=== PATIENT | male | born 1945 | race Caucasian/White ===

== ENCOUNTER 2017-05-10 02:50 | Emergency (ER) | payer MEDICARE, OTHER ==
[~2017-05-10] VITALS: Ht 185.4 cm; Wt 127.5 kg
[~2017-05-10 02:50] MED LIST: ACET325T9 PO; ALBU2.5V5 NEB; ALBU6.7H IH; ALPR0.25 PO; ARIP10TA9 PO; ARIP15TA36 PO; ASPI-424 PO; ATOR40TA59 PO; ATORVASTATIN CA80 MG PO; BUPR100T6 PO; CHOL10003 PO; CLOP75TA57 PO; CLOT12CR2 TP; COLL30OI TP; DIPH25CA3 PO; DIPH50CA PO; DIVA500T17 PO; DIVA500T2 PO; DOCU-109 PO; DULO30CA2 PO; ENOX40DI SQ; FERR-26 PO; GABA-585 PO; HYDR12.58 PO; HYDR25TA9 PO; INSU100I17 SQ; INSU100I27 SQ; LISI40TA PO; MAG30ORA PO; MAG30ORA2 PO; MAGN2400 PO; MELA1TAB2 PO; METH29OI TP; METO25TA4 PO; NITR0.3T SL; NITR0.4T SL; NITR1PAT TD; NITR1PAT9 TD; TRAM50TA PO; TRAZ50TA15 PO; ZOLP5TAB PO
--- NOTE | 2017-05-10 03:47 | PHYS DOC ---
Past History Past Medical History: Anxiety, Bipolar, CHF, Depression, Heart Disease Past Surgical History: Other Alcohol Use: None Drug Use: None Adult General Chief Complaint Chief Complaint: CHEST PAIN HPI HPI Patient is a 72 year old male who presents with complaint of headache after suffering a fall. Patient states that he awoke in the middle the night and attempted to use his bathroom but lost his balance on the way and fell, hitting his right knee and his head. Patient denies loss of consciousness. Patient states that he suffered a cut on his right knee and is having headache. Patient also states that he developed substernal chest pain after the fall. Patient states he took nitroglycerin which relieved his symptoms. Patient has extensive history of coronary artery disease and follows a Dr. Marvin of cardiology. Patient has had cardiac bypass surgery and is noted to have multiple blockages. Patient states that his current condition is not amenable to further surgical intervention and is currently being managed medically. Patient states at this time that he has no pain. Patient is on daily aspirin and is currently not on any blood thinners. Review of Systems Review of Systems Constitutional: Denies fever or chills [] Eyes: Denies change in visual acuity, redness, or eye pain [] HENT: Denies nasal congestion or sore throat [] Respiratory: Denies cough or shortness of breath [] Cardiovascular: Chest pain currently resolved [] GI: Denies abdominal pain, nausea, vomiting, bloody stools or diarrhea [] : Denies dysuria or hematuria [] Musculoskeletal: Denies back pain or joint pain [] Integument: Skin injury on right knee [] Neurologic: Headache, denies focal weakness or sensory changes [] Allergies Allergies Allergies Coded Allergies Type Severity Reaction Last Updated Verified No Known Drug Allergies 12/11/15 No Physical Exam Physical Exam Constitutional: Alert, afebrile, no acute distress. [] HENT: Normocephalic, atraumatic, bilateral external ears normal, oropharynx moist, no oral exudates, nose normal. [] Eyes: PERRLA, EOMI, conjunctiva normal, no discharge. [] Neck: Normal range of motion, no tenderness, supple, no stridor. [] Cardiovascular:Heart rate regular rhythm, no murmur [] Lungs & Thorax: Bilateral breath sounds clear to auscultation [] Abdomen: Bowel sounds normal, soft, no tenderness, no masses, no pulsatile masses. [] Skin: Warm, dry, no erythema, no rash. [] Back: No tenderness, no CVA tenderness. [] Extremities: Superficial avulsion over right patella, no cyanosis, no clubbing, ROM intact, no edema. [] Neurologic: Alert and oriented X 3, normal motor function, normal sensory function, no focal deficits noted. [] Current Patient Data Lab Results Not performed EKG EKG Interpreted by me: Heart rate 53, sinus rhythm, leftward axis, normal intervals , T-wave inversions in the lateral leads and in V2 through V6 present on previous EKG, no acute ST elevations or depressions, no acute changes [] Radiology/Procedures Radiology/[place] [address] IMAGING REPORT Signed PATIENT: BURTON RUSSELL ACCOUNT: [id number] : 1945 LOCATION: ER AGE: 72 SEX: M EXAM STATUS: PRE ER ORD. PHYSICIAN: BRADFORD ELIZABETH MD REASON: fall head injury PROCEDURE: CT HEAD WO CONTRAST CT HEAD INDICATION: Injury from fall tonight, hit posterior portion of head, headache, light sensitivity. . COMPARISON: None Available. TECHNIQUE: 5 mm contiguous axial images were obtained from the skull base to the vertex. Exposure: One or more of the following individualized dose reduction techniques were utilized for this examination: 1. Automated exposure control 2. Adjustment of the mA and/or kV according to patient size 3. Use of iterative reconstruction technique FINDINGS: Mild bilateral periventricular white matter hypodensities likely chronic small vessel ischemic disease. Small left basal ganglia old lacunar infarct No evidence of acute intracranial hemorrhage. No extra-axial fluid collections. No mass effect or midline shift. Ventricular size is appropriate. Basal cisterns are patent. No fractures identified.Hough-white differentiation is preserved.Globes and orbits are within normal limits. Complete opacification of the bilateral maxillary sinus likely sinus disease. Mastoid air cells are clear. IMPRESSION: 1. No acute intracranial findings. 2. Bilateral maxillary sinus disease. Electronically signed by: Joe Goins MD (05/10/2017 3:50 AM) DICTATED AND SIGNED BY: JOE GOINS MD DATE: 05/10/17 0347 CC: BRADFORD ELIZABETH MD; PCP,UNKNOWN ~ [] Course & Med Decision Making Course & Med Decision Making Pertinent Labs and Imaging studies reviewed. (See chart for details) Patient's EKG is stable and patient's head CT shows no evidence of acute bleeding. The patient's angina is a chronic recurrent condition and is currently resolved. I spoke with patient's referral rn, Dr. Marvin, and he agreed that no further workup is necessary at this time. He agreed to follow-up with patient in the next 5 days in his office. The patient is ambulatory in the emergency department with a nonfocal during gait. Advised patient to call Dr. Marvin's office on the next business day to schedule an appointment. Advised return emergency department for any worsening symptoms. Patient voiced understanding and in agreement with treatment plan. Dragon Disclaimer Dragon Disclaimer This chart was dictated in whole or in part using Voice Recognition software in a busy, high-work load, and often noisy Emergency Department environment. It may contain unintended and wholly unrecognized errors or omissions. Departure Departure: Impression: Primary Impression: Stable angina Additional Impressions: Closed head injury Abrasion of right knee Disposition: HOME, SELF-CARE Condition: IMPROVED Referrals: PCP,UNKNOWN (PCP) Patient Instructions: Abrasion, Kisg-me-Vuhp, Angina, Head Injury, Adult Additional Instructions: Follow-up with Dr. Marvin in the next 3-5 days. Return to the emergency department for any worsening symptoms. Problem Qualifiers Additional Impressions: Closed head injury Encounter type: initial encounter Qualified Codes: S09.90XA - Unspecified injury of head, initial encounter Abrasion of right knee Encounter type: initial encounter Qualified Codes: S80.211A - Abrasion, right knee, initial encounter BRADFORD ELIZABETH MD May 10, 2017 03:47
--- NOTE | 2017-05-10 03:54 | RAD ---
CT HEAD INDICATION: Injury from fall tonight, hit posterior portion of head, headache, light sensitivity. . COMPARISON: None Available. TECHNIQUE: 5 mm contiguous axial images were obtained from the skull base to the vertex. Exposure: One or more of the following individualized dose reduction techniques were utilized for this examination: 1. Automated exposure control 2. Adjustment of the mA and/or kV according to patient size 3. Use of iterative reconstruction technique FINDINGS: Mild bilateral periventricular white matter hypodensities likely chronic small vessel ischemic disease. Small left basal ganglia old lacunar infarct No evidence of acute intracranial hemorrhage. No extra-axial fluid collections. No mass effect or midline shift. Ventricular size is appropriate. Basal cisterns are patent. No fractures identified.Hough-white differentiation is preserved.Globes and orbits are within normal limits. Complete opacification of the bilateral maxillary sinus likely sinus disease. Mastoid air cells are clear. IMPRESSION: 1. No acute intracranial findings. 2. Bilateral maxillary sinus disease. Electronically signed by: Joe Goins MD (05/10/2017 3:50 AM)
[2017-05-10 04:17] VITALS: BP 141/77
--- NOTE | 2017-05-10 07:04 | EKG ---
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1945 Requested By: BRADFORD ELIZABETH Order Number: [id number] Reading MD: Nathan Helms Measurements Intervals [place] Rate: 53 P: -64 CT: 160 QRS: -12 QRSD: 106 T: 97 QT: 450 QTc: 425 Interpretive Statements SINUS RHYTHM LEFTWARD AXIS QRS(T) CONTOUR ABNORMALITY CANNOT RULE OUT ANTEROSEPTAL MYOCARDIAL DAMAGE T ABNORMALITY IN ANTEROLATERAL LEADS RI6.01 Unconfirmed report Compared to ECG 06/28/2016 17:06:17 Left-axis deviation now present T-wave abnormality now present Sinus bradycardia no longer present Possible ischemia no longer present Electronically Signed On 05-12-2017 10:50:49 CDT by Nathan Helms
== END 2017-05-10 04:30 | disposition home or self-care (01) ==
LOC: ER 02:50
DX: S09.90XA Unspecified injury of head, initial encounter (principal); S80.211A Abrasion, right knee, initial encounter; F41.9 Anxiety disorder, unspecified; I20.8 Other forms of angina pectoris; I50.9 Heart failure, unspecified; F31.9 Bipolar disorder, unspecified; W19.XXXA Unspecified fall, initial encounter; Y93.89 Activity, other specified; Y99.8 Other external cause status; Y92.002 Bathroom of unspecified non-institutional (private) residence as the place of occurrence of the external cause
CPT/HCPCS: 70450; 93005; 99284-25

== ENCOUNTER 2018-06-19 13:03 | Inpatient (IN) | payer MEDICARE, OTHER ==
[~2018-06-19] VITALS: Ht 185.4 cm; Wt 132.5 kg
[~2018-06-19 13:03] MED LIST changes: -FERR-26 PO; +FERR325T14 PO; +TRAZ-85 PO; -TRAZ50TA15 PO
[2018-06-19] MEDS ORDERED: MAG HYDROX/AL HYDROX/SIMETH 30 ML ORAL.SUSP PO PRN (15:00)
[2018-06-19] MEDS ORDERED: MAGNESIUM HYDROXIDE 2,400 MG/30 ML ORAL.SUSP. PO PRN (15:00)
[2018-06-19] MEDS ORDERED: METHYL SALICYLATE/MENTHOL TOPICAL OINTMENT 29GM TUBE. TP PRN (15:00)
[2018-06-19] MEDS ORDERED: ACETAMINOPHEN 325 MG TABLET PO PRN (15:00)
[2018-06-19 15:54] LABS: BASO % 1 % (0-3); EOS % 2 % (0-3); HEMATOCRIT 24.8 % (39.0-53.0); LYMPH # 1.2 x10^3/uL (1.0-4.8); LYMPH % 51 % (24-48); MEAN CORPUSCULAR HEMOGLOBIN 31 pg (25-35); MEAN CORPUSCULAR HGB CONC 32 g/dL (31-37); MEAN CORPUSCULAR VOLUME 95 fL (79-100); MONO # 0.3 x10^3/uL (0.0-1.1); MONO % 14 % (0-9); NEUT # 0.8 x10^3uL (1.8-7.7); NEUT % 33 % (31-73); PLATELET COUNT 234 x10^3/uL (140-400); RED BLOOD COUNT 2.61 x10^6/uL (4.30-5.70); RED CELL DISTRIBUTION WIDTH 16.7 % (11.5-14.5); WHITE BLOOD COUNT 2.4 x10^3/uL (4.0-11.0)
[2018-06-19 16:05] VITALS: BP 116/73
[2018-06-19 16:07] LABS: ALBUMIN 2.4 g/dL (3.4-5.0); ALBUMIN/GLOBULIN RATIO 0.6 (1.0-1.7); CALCIUM 8.8 mg/dL (8.5-10.1); CREATININE 1.1 mg/dL (0.7-1.3); GFR 65.4; POTASSIUM 4.2 mmol/L (3.5-5.1); TOTAL BILIRUBIN 0.5 mg/dL (0.2-1.0); TOTAL PROTEIN 6.7 g/dL (6.4-8.2)
[2018-06-19 16:36] LABS: % BANDS 1 % (0-9); % BASOS 0 % (0-3); % EOS 2 % (0-5); % LYMPHS 55 % (24-48); % METAS 1 % (0-0); % MONOS 8 % (0-10); % SEGS 33 % (35-66); ANISOCYTOSIS SLIGHT; PLT ESTIMATE ADEQUATE (ADEQUATE)
[2018-06-19] MEDS ORDERED: INSU100I11 SQ (17:32)
[2018-06-19] MEDS ORDERED: LACT1CAP21 PO (17:32)
[2018-06-19] MEDS ORDERED: RANO500T2 PO (17:32)
[2018-06-19] MEDS ORDERED: CLOP75TA PO (17:32)
[2018-06-19] MEDS ORDERED: ACET500T68 PO (17:32)
[2018-06-19] MEDS ORDERED: PANT40TA3 PO (17:32)
[2018-06-19] MEDS ORDERED: ASPI325T8 PO (17:32)
[2018-06-19] MEDS ORDERED: IPRA3AMP29 NEB (17:32)
[2018-06-19] MEDS ORDERED: INSU100I13 SQ (17:32)
[2018-06-19] MEDS ORDERED: TAMS0.4C2 PO (17:32)
[2018-06-19] MEDS ORDERED: ALPR0.5T6 PO (17:32)
[2018-06-19] MEDS ORDERED: DILT30TA26 PO (17:32)
[2018-06-19] MEDS ORDERED: ATOR40TA59 PO (17:32)
[2018-06-19] MEDS ORDERED: ONDA4TAB12 PO (17:32)
[2018-06-19] MEDS ORDERED: HYDR-2758 PO (17:32)
[2018-06-19] MEDS ORDERED: BUDE0.5A11 NEB (17:32)
[2018-06-19] MEDS ORDERED: CARV3.122 PO (17:32)
[2018-06-19] MEDS ORDERED: ALPRAZolam 0.5 MG TABLET PO PRN (18:00)
[2018-06-19] MEDS ORDERED: ONDANSETRON ODT 4 MG TAB.RAPDIS PO PRN (18:00)
[2018-06-19] MEDS ORDERED: ACETAMINOPHEN 500 MG TABLET PO PRN (18:15)
[2018-06-19] MEDS ORDERED: HYDROcodone/APAP 5/325MG 1 TAB TABLET PO PRN (18:15)
[2018-06-19] MEDS: dilTIAZem HCL 30 MG TABLET PO SCH (20:09)
[2018-06-19] MEDS: ATORVASTATIN CALCIUM 20 MG TABLET PO SCH (20:09)
[2018-06-19] MEDS: LACTOBACILLUS RHAMNOSUS GG 1 CAPSULE. PO SCH (20:09)
[2018-06-19] MEDS: DIVALPROEX ER 500 MG TAB.ER.24H PO SCH (20:09)
[2018-06-19] MEDS: buPROPion 100 MG TABLET PO SCH (20:10)
[2018-06-19] MEDS: RANOLAZINE 500 MG TAB.ER.12H PO SCH (20:10)
[2018-06-19] MEDS: INSULIN GLARGINE 300 UNITS/3 ML INSULN.PEN. SQ SCH (20:11)
--- NOTE | 2018-06-19 20:41 | PDOC ---
Exam Note: Warner Note: Please also refer to the separate dictated note~for this date of service dictated separately.~Patient seen individually. Discussed the patient with Nursing staff reviewed the chart.~Reviewed interim history and current functioning. Reviewed vital signs,~Labs/ Radiology~and current medications noted below. Continue current treatment with the changes noted in the dictated addendum note Assessment: Vital Signs: Vital Signs Date Time Temp Pulse Resp B/P (MAP) Pulse Ox O2 Delivery O2 Flow Rate FiO2 06/19/18 20:10 71 116/73 06/19/18 16:05 97.6 16 97 2.0 Labs: Laboratory Tests Test 06/19/18 15:48 06/19/18 16:37 06/19/18 19:19 White Blood Count 2.4 x10^3/uL (4.0-11.0) L Red Blood Count 2.61 x10^6/uL (4.30-5.70) L Hemoglobin 8.0 g/dL (13.0-17.5) L Hematocrit 24.8 % (39.0-53.0) L Mean Corpuscular Volume 95 fL (79-100) Mean Corpuscular Hemoglobin 31 pg (25-35) Mean Corpuscular Hemoglobin Concent 32 g/dL (31-37) Red Cell Distribution Width 16.7 % (11.5-14.5) H Platelet Count 234 x10^3/uL (140-400) Neutrophils (%) (Auto) 33 % (31-73) Lymphocytes (%) (Auto) 51 % (24-48) H Monocytes (%) (Auto) 14 % (0-9) H Eosinophils (%) (Auto) 2 % (0-3) Basophils (%) (Auto) 1 % (0-3) Neutrophils # (Auto) 0.8 x10^3uL (1.8-7.7) L Lymphocytes # (Auto) 1.2 x10^3/uL (1.0-4.8) Monocytes # (Auto) 0.3 x10^3/uL (0.0-1.1) Eosinophils # (Auto) 0.0 x10^3/uL (0.0-0.7) Basophils # (Auto) 0.0 x10^3/uL (0.0-0.2) Segmented Neutrophils % 33 % (35-66) L Band Neutrophils % 1 % (0-9) Lymphocytes % 55 % (24-48) H Monocytes % 8 % (0-10) Eosinophils % 2 % (0-5) Basophils % 0 % (0-3) Metamyelocytes % 1 % (0-0) H Platelet Estimate Adequate (ADEQUATE) Anisocytosis Slight Crenated Cell Present Sodium Level 137 mmol/L (136-145) Potassium Level 4.2 mmol/L (3.5-5.1) Chloride Level 102 mmol/L (98-107) Carbon Dioxide Level 29 mmol/L (21-32) Anion Gap 6 (6-14) Blood Urea Nitrogen 19 mg/dL (8-26) Creatinine 1.1 mg/dL (0.7-1.3) Estimated GFR (Cockcroft-Gault) 65.4 BUN/Creatinine Ratio 17 (6-20) Glucose Level 122 mg/dL (70-99) H Calcium Level 8.8 mg/dL (8.5-10.1) Magnesium Level 2.0 mg/dL (1.8-2.4) Total Bilirubin 0.5 mg/dL (0.2-1.0) Aspartate Amino Transferase (AST) 13 U/L (15-37) L Alanine Aminotransferase (ALT) 12 U/L (16-63) L Alkaline Phosphatase 53 U/L (46-116) Total Protein 6.7 g/dL (6.4-8.2) Albumin 2.4 g/dL (3.4-5.0) L Albumin/Globulin Ratio 0.6 (1.0-1.7) L Glucose (Fingerstick) 136 mg/dL (70-99) H 180 mg/dL (70-99) H Current Medications: Meds: Current Medications Acetaminophen (Tylenol) 650 mg PRN Q6HRS PRN PO PAIN / TEMP; Start 06/19/18 at 15:00; Stop 06/19/18 at 17:59; Status DC Multi-Ingredient Ointment (Analgesic [place]) 1 georgina PRN QID PRN TP MUSCLE PAIN; Start 06/19/18 at 15:00 Al Hydroxide/Mg Hydroxide (Mylanta Plus Xs) 15 ml PRN AFTMEALHC PRN PO DYSPEPSIA; Start 06/19/18 at 15:00 Magnesium Hydroxide (Milk Of Magnesia) 2,400 mg PRN QHS PRN PO CONSTIPATION; Start 06/19/18 at 15:00 Aspirin (Michelle Aspirin) 325 mg DAILY PO ; Start 06/20/18 at 09:00 Bupropion HCl (Wellbutrin) 100 mg BID PO Last administered on 06/19/18at 20:10; Start 06/19/18 at 21:00 Vitamin D (Vitamin D3) 3,000 unit DAILY PO ; Start 06/20/18 at 09:00 Clopidogrel Bisulfate (Plavix) 75 mg DAILY PO ; Start 06/20/18 at 09:00 Diltiazem HCl (Cardizem) 30 mg TID PO Last administered on 06/19/18at 20:09; Start 06/19/18 at 21:00 Ferrous Sulfate (Feosol) 325 mg DAILY PO ; Start 06/20/18 at 09:00 Insulin Glargine (Lantus) 25 units QHS SQ Last administered on 06/19/18at 20:11 ; Start 06/19/18 at 21:00 Insulin Human Lispro (HumaLOG) 15 units TIDAC SQ ; Start 06/20/18 at 07:30 Albuterol/ Ipratropium (Duoneb) 3 ml RTQID NEB ; Start 06/19/18 at 20:00 Ondansetron HCl (Zofran Odt) 4 mg PRN Q8HRS PRN PO NAUSEA/VOMITING; Start 06/19 at 18:00 Ranolazine (Ranexa) 500 mg BID PO Last administered on 06/19/18at 20:10; Start 06/19/18 at 21:00 Tamsulosin HCl (Flomax) 0.4 mg DAILY PO ; Start 06/20/18 at 09:00 Acetaminophen (Tylenol) 500 mg PRN Q8HRS PRN PO PAIN / TEMP; Start 06/19/18 at 18:15 Alprazolam (Xanax) 0.5 mg PRN Q8HRS PRN PO ANXIETY / AGITATION; Start 06/19/18 at 18:00 Atorvastatin Calcium (Lipitor) 40 mg QHS PO Last administered on 06/19/18at 20: 09; Start 06/19/18 at 21:00 Budesonide (Pulmicort) 0.5 mg RTBID NEB ; Start 06/19/18 at 20:00 Carvedilol (Coreg) 3.125 mg BIDWMEALS PO ; Start 06/20/18 at 08:00 Divalproex Sodium (Depakote Er) 1,000 mg QHS PO Last administered on 06/19/18at 20:09; Start 06/19/18 at 21:00 Duloxetine HCl (Cymbalta) 30 mg DAILY PO ; Start 06/20/18 at 09:00 Acetaminophen/ Hydrocodone Bitart (Lortab 5/325) 1 tab PRN Q4HRS PRN PO PAIN; Start 06/19/18 at 18:15 Lactobacillus Rhamnosus (Culturelle) 1 cap BID PO Last administered on at 20:09; Start 06/19/18 at 21:00 Pantoprazole Sodium (Protonix) 40 mg DAILYAC PO ; Start 06/20/18 at 07:30 Active Scripts Active Reported Cardizem Tablet (Diltiazem Hcl) 30 Mg Tablet 30 Mg PO TID Tamsulosin Hcl 0.4 Mg Cap.er.24h 0.4 Mg PO DAILY Ranexa (Ranolazine) 500 Mg Tab.er.12h 500 Mg PO BID Protonix (Pantoprazole Sodium) 40 Mg Tablet.dr 40 Mg PO DAILYAC Ondansetron Odt (Ondansetron) 4 Mg Tab.rapdis 4 Mg PO PRN Q8HRS PRN Culturelle (Lactobacillus Rhamnosus Gg) 1 Each Capsule 1 Each PO BID Duoneb 0.5-3(2.5) Mg/3 Ml (Albuterol/Ipratropium) 3 Ml Ampul.neb 3 Ml NEB RTQID Humalog (Insulin Lispro) 100 Unit/1 Ml Insuln.pen 15 Unit SQ TIDAC Lantus Solostar (Insulin Glargine,Hum.rec.anlog) 100 Unit/1 Ml Insuln.pen 25 Unit SQ QHS Hydrocodone-Apap 5-325 (Hydrocodone Bit/Acetaminophen) 1 Each Tablet 1 Tab PO PRN Q4HRS PRN Clopidogrel (Clopidogrel Bisulfate) 75 Mg Tablet 75 Mg PO DAILY Carvedilol 3.125 Mg Tablet 3.125 Mg PO BIDWMEALS Budesonide 0.5 Mg/2 Ml Ampul.neb 0.5 Mg NEB RTBID Atorvastatin Calcium 40 Mg Tablet 40 Mg PO QHS Aspirin 325 Mg Tablet 325 Mg PO DAILY Alprazolam 0.5 Mg Tablet 0.5 Mg PO PRN Q8HRS PRN Acetaminophen 500 Mg Tablet 500 Mg PO PRN Q8HRS PRN Ferrous Sulfate 325 Mg Tablet 325 Mg PO DAILY Do not give within 2 hours of antacids or calcium products. Give with food. Divalproex Sodium Er (Divalproex Sodium) 500 Mg Tab.er.24h 1,000 Mg PO HS Give with food. Do NOT crush or chew. Vitamin D3 (Cholecalciferol (Vitamin D3)) 1,000 Unit Tablet 3,000 Unit PO DAILY Wellbutrin (Bupropion Hcl) 100 Mg Tablet 100 Mg PO BID Cymbalta (Duloxetine Hcl) 30 Mg Capsule.dr 30 Mg PO DAILY I have reviewed the current psychotropics carefully including drug interactions. Risk benefit ratio favors no change other than as noted in my dictated progress note. Diagnosis: Problems: (1) Depression (2) Difficulty controlling anger (3) Bipolar 1 disorder GRANT HYLTON MD Jun 19, 2018 20:41
[2018-06-19] MEDS: IPRATRPIUM/ALBUTEROL 0.5/2.5MG 3 ML NEBU. NEB SCH (20:52)
[2018-06-19] MEDS: BUDESONIDE 0.5 MG/2 ML NEBU NEB SCH (20:53)
[2018-06-20 03:09] LABS: THYROXINE 5.9 ug/dL (4.5-12.0)
[2018-06-20 04:12] LABS: HEMOGLOBIN A1C 6.4 % (4.8-5.6)
[2018-06-20] MEDS: BUDESONIDE 0.5 MG/2 ML NEBU NEB SCH ×3 (05:43→19:56)
[2018-06-20] MEDS: IPRATRPIUM/ALBUTEROL 0.5/2.5MG 3 ML NEBU. NEB SCH ×4 (05:43→19:56)
[2018-06-20 06:07] VITALS: BP 120/77
[2018-06-20] MEDS: buPROPion 100 MG TABLET PO SCH ×2 (07:57→19:28)
[2018-06-20] MEDS: dilTIAZem HCL 30 MG TABLET PO SCH ×3 (07:57→19:28)
[2018-06-20] MEDS: RANOLAZINE 500 MG TAB.ER.12H PO SCH ×2 (07:58→19:29)
[2018-06-20] MEDS: LACTOBACILLUS RHAMNOSUS GG 1 CAPSULE. PO SCH ×2 (07:58→19:28)
[2018-06-20] MEDS: CARVEDILOL 3.125 MG TABLET PO SCH ×2 (08:02→16:58)
[2018-06-20] MEDS: FERROUS SULFATE 325 MG TABLET. PO SCH (08:02)
[2018-06-20] MEDS: TAMSULOSIN 0.4 MG CAP.ER.24H. PO SCH (08:02)
[2018-06-20] MEDS: ASPIRIN 325 MG TABLET PO SCH (08:02)
[2018-06-20] MEDS: PANTOPRAZOLE 40 MG TABLET. PO SCH (08:02)
[2018-06-20] MEDS: DULoxetine HCL 30 MG CAPSULE.DR PO SCH (08:02)
[2018-06-20] MEDS: CHOLECALCIFEROL (VITAMIN D3) 1,000 UNIT TABLET PO SCH (08:03)
[2018-06-20] MEDS: CLOPIDOGREL BISULFATE 75 MG TABLET PO SCH (08:03)
[2018-06-20] MEDS: INSULIN LISPRO 300 UNITS/3 ML INSULN.PEN. SQ SCH ×3 (08:09→16:30)
[2018-06-20 08:28] LABS: VAL ACID 43 mcg/mL (50-100)
--- NOTE | 2018-06-20 10:42 | PDOC2 ---
CONSULT Date of Admission DATE: 06/20/18 TIME: 10:04 Reason for Consult: Medical Management Referring Physician: Dr Gutierrez Source: Caregiver, Chart review, Patient History of Present Illness 73/M admitted [facility] from [facility] for reports of increased agitation, paranoia, worsening anxiety, and at times some combative behaviors. Has prior admission to [facility] in June 2016 with extensive psychiatric history. He apparently suffered a fall injury with left hip fracture 05/22/18 and is s/p ORIF. On 06/16/18 he suffered a NSTEMI and is currently on ciprofloxacin for UTI. Among his medical problems he is diabetic, his FSBS have been 136-180 since arriving here and his vitals have remained stable he uses 2L O2 NC while sleeping. He is not very mobile currently but does assist with transfers and staff reports he has been calm and pleasant since his arrival. I find him asleep this morning, and while cooperative with exam he makes a laughing noise to answer each of my questions. He has a DNR. Past Medical History atrial fibrillation, coronary artery disease, hypertension, UT, peripheral vascular disease, asthma, obstructive sleep apnea (uses 2L O2 NC while asleep), transient ischemic attack, peptic ulcer disease, anemia, bipolar disorder, depression, osteoarthritis, hearing loss, urinary retention with frequent UTIs ( izquierdo), Past Surgical History ORIF left hip, CABG, cataracts, coronary stents Family History hypertension Smoke: No ALCOHOL: none Drugs: None Lives: Skilled Nursing Current Medications Current Medications Acetaminophen (Tylenol) 650 mg PRN Q6HRS PRN PO PAIN / TEMP; Start 06/19/18 at 15:00; Stop 06/19/18 at 17:59; Status DC Multi-Ingredient Ointment (Analgesic [place]) 1 georgina PRN QID PRN TP MUSCLE PAIN; Start 06/19/18 at 15:00 Al Hydroxide/Mg Hydroxide (Mylanta Plus Xs) 15 ml PRN AFTMEALHC PRN PO DYSPEPSIA; Start 06/19/18 at 15:00 Magnesium Hydroxide (Milk Of Magnesia) 2,400 mg PRN QHS PRN PO CONSTIPATION; Start 06/19/18 at 15:00 Aspirin (Michelle Aspirin) 325 mg DAILY PO Last administered on 06/20/18at 08:02; Start 06/20/18 at 09:00 Bupropion HCl (Wellbutrin) 100 mg BID PO Last administered on 06/20/18 07:57; Start 06/19/18 at 21:00 Vitamin D (Vitamin D3) 3,000 unit DAILY PO Last administered on 06/20/18 08:03 ; Start 06/20/18 at 09:00 Clopidogrel Bisulfate (Plavix) 75 mg DAILY PO Last administered on 06/20/18 08 :03; Start 06/20/18 at 09:00 Diltiazem HCl (Cardizem) 30 mg TID PO Last administered on 06/20/18 07:57; Start 06/19/18 at 21:00 Ferrous Sulfate (Feosol) 325 mg DAILY PO Last administered on 06/20/18 08:02; Start 06/20/18 at 09:00 Insulin Glargine (Lantus) 25 units QHS SQ Last administered on 06/19/18 20:11 ; Start 06/19/18 at 21:00 Insulin Human Lispro (HumaLOG) 15 units TIDAC SQ Last administered on 08:09; Start 06/20/18 at 07:30 Albuterol/ Ipratropium (Duoneb) 3 ml RTQID NEB Last administered on 06/20/18 05:43; Start 06/19/18 at 20:00 Ondansetron HCl (Zofran Odt) 4 mg PRN Q8HRS PRN PO NAUSEA/VOMITING; Start 06/19 at 18:00 Ranolazine (Ranexa) 500 mg BID PO Last administered on 06/20/18at 07:58; Start 06/19/18 at 21:00 Tamsulosin HCl (Flomax) 0.4 mg DAILY PO Last administered on 06/20/18 08:02; Start 06/20/18 at 09:00 Acetaminophen (Tylenol) 500 mg PRN Q8HRS PRN PO PAIN / TEMP; Start 06/19/18 at 18:15 Alprazolam (Xanax) 0.5 mg PRN Q8HRS PRN PO ANXIETY / AGITATION; Start 06/19/18 at 18:00 Atorvastatin Calcium (Lipitor) 40 mg QHS PO Last administered on 06/19/18at 20: 09; Start 06/19/18 at 21:00 Budesonide (Pulmicort) 0.5 mg RTBID NEB Last administered on 06/20/18at 05:43; Start 06/19/18 at 20:00 Carvedilol (Coreg) 3.125 mg BIDWMEALS PO Last administered on 06/20/18at 08:02; Start 06/20/18 at 08:00 Divalproex Sodium (Depakote Er) 1,000 mg QHS PO Last administered on 06/19/18at 20:09; Start 06/19/18 at 21:00 Duloxetine HCl (Cymbalta) 30 mg DAILY PO Last administered on 06/20/18at 08:02; Start 06/20/18 at 09:00 Acetaminophen/ Hydrocodone Bitart (Lortab 5/325) 1 tab PRN Q4HRS PRN PO PAIN; Start 06/19/18 at 18:15 Lactobacillus Rhamnosus (Culturelle) 1 cap BID PO Last administered on at 07:58; Start 06/19/18 at 21:00 Pantoprazole Sodium (Protonix) 40 mg DAILYAC PO Last administered on 06/20/18at 08:02; Start 06/20/18 at 07:30 Active Scripts Active Reported Cardizem Tablet (Diltiazem Hcl) 30 Mg Tablet 30 Mg PO TID Tamsulosin Hcl 0.4 Mg Cap.er.24h 0.4 Mg PO DAILY Ranexa (Ranolazine) 500 Mg Tab.er.12h 500 Mg PO BID Protonix (Pantoprazole Sodium) 40 Mg Tablet.dr 40 Mg PO DAILYAC Ondansetron Odt (Ondansetron) 4 Mg Tab.rapdis 4 Mg PO PRN Q8HRS PRN Culturelle (Lactobacillus Rhamnosus Gg) 1 Each Capsule 1 Each PO BID Duoneb 0.5-3(2.5) Mg/3 Ml (Albuterol/Ipratropium) 3 Ml Ampul.neb 3 Ml NEB RTQID Humalog (Insulin Lispro) 100 Unit/1 Ml Insuln.pen 15 Unit SQ TIDAC Lantus Solostar (Insulin Glargine,Hum.rec.anlog) 100 Unit/1 Ml Insuln.pen 25 Unit SQ QHS Hydrocodone-Apap 5-325 (Hydrocodone Bit/Acetaminophen) 1 Each Tablet 1 Tab PO PRN Q4HRS PRN Clopidogrel (Clopidogrel Bisulfate) 75 Mg Tablet 75 Mg PO DAILY Carvedilol 3.125 Mg Tablet 3.125 Mg PO BIDWMEALS Budesonide 0.5 Mg/2 Ml Ampul.neb 0.5 Mg NEB RTBID Atorvastatin Calcium 40 Mg Tablet 40 Mg PO QHS Aspirin 325 Mg Tablet 325 Mg PO DAILY Alprazolam 0.5 Mg Tablet 0.5 Mg PO PRN Q8HRS PRN Acetaminophen 500 Mg Tablet 500 Mg PO PRN Q8HRS PRN Ferrous Sulfate 325 Mg Tablet 325 Mg PO DAILY Do not give within 2 hours of antacids or calcium products. Give with food. Divalproex Sodium Er (Divalproex Sodium) 500 Mg Tab.er.24h 1,000 Mg PO HS Give with food. Do NOT crush or chew. Vitamin D3 (Cholecalciferol (Vitamin D3)) 1,000 Unit Tablet 3,000 Unit PO DAILY Wellbutrin (Bupropion Hcl) 100 Mg Tablet 100 Mg PO BID Cymbalta (Duloxetine Hcl) 30 Mg Capsule.dr 30 Mg PO DAILY Allergies: Coded Allergies: No Known Drug Allergies (Unverified , 12/11/15) Review of System Patient would not cooperate, would not answer questions accurate ROS unobtainable General: Cooperative (with exam, would not answer questions), No acute distress , Other (sleeping, rouses easily to verbal stimuli) HEENT: Atraumatic, Mucous membr. moist/pink, Other (nasal cannula) Lungs: Clear to auscultation, Normal air movement Heart: Normal S1, Normal S2, Other (2/6 BRIAN LSB) Abdomen: Normal bowel sounds, Soft, No tenderness Extremities: No clubbing, No cyanosis, Normal pulses, Other (generalized mild nonpitting edema globally, 2+ pitting LE edema left leg, surgical wound with sterile dressing) Neuro: Other (sensation appears intact, OLEA, no lateralizing deficits with limited exam) VITALS Vital Signs Date Time Temp Pulse Resp B/P (MAP) Pulse Ox O2 Delivery O2 Flow Rate FiO2 06/20/18 08:02 76 120/77 06/20/18 06:07 97.7 16 97 2.0 06/20/18 05:46 Room Air Labs Laboratory Tests Test 06/19/18 15:48 06/19/18 16:37 06/19/18 19:19 06/20/18 07:25 White Blood Count 2.4 x10^3/uL (4.0-11.0) Red Blood Count 2.61 x10^6/uL (4.30-5.70) Hemoglobin 8.0 g/dL (13.0-17.5) Hematocrit 24.8 % (39.0-53.0) Mean Corpuscular Volume 95 fL (79-100) Mean Corpuscular Hemoglobin 31 pg (25-35) Mean Corpuscular Hemoglobin Concent 32 g/dL (31-37) Red Cell Distribution Width 16.7 % (11.5-14.5) Platelet Count 234 x10^3/uL (140-400) Neutrophils (%) (Auto) 33 % (31-73) Lymphocytes (%) (Auto) 51 % (24-48) Monocytes (%) (Auto) 14 % (0-9) Eosinophils (%) (Auto) 2 % (0-3) Basophils (%) (Auto) 1 % (0-3) Neutrophils # (Auto) 0.8 x10^3uL (1.8-7.7) Lymphocytes # (Auto) 1.2 x10^3/uL (1.0-4.8) Monocytes # (Auto) 0.3 x10^3/uL (0.0-1.1) Eosinophils # (Auto) 0.0 x10^3/uL (0.0-0.7) Basophils # (Auto) 0.0 x10^3/uL (0.0-0.2) Segmented Neutrophils % 33 % (35-66) Band Neutrophils % 1 % (0-9) Lymphocytes % 55 % (24-48) Monocytes % 8 % (0-10) Eosinophils % 2 % (0-5) Basophils % 0 % (0-3) Metamyelocytes % 1 % (0-0) Platelet Estimate Adequate (ADEQUATE) Anisocytosis Slight Crenated Cell Present Sodium Level 137 mmol/L (136-145) Potassium Level 4.2 mmol/L (3.5-5.1) Chloride Level 102 mmol/L (98-107) Carbon Dioxide Level 29 mmol/L (21-32) Anion Gap 6 (6-14) Blood Urea Nitrogen 19 mg/dL (8-26) Creatinine 1.1 mg/dL (0.7-1.3) Estimated GFR (Cockcroft-Gault) 65.4 BUN/Creatinine Ratio 17 (6-20) Glucose Level 122 mg/dL (70-99) Hemoglobin A1c 6.4 % (4.8-5.6) Calcium Level 8.8 mg/dL (8.5-10.1) Magnesium Level 2.0 mg/dL (1.8-2.4) Total Bilirubin 0.5 mg/dL (0.2-1.0) Aspartate Amino Transf (AST/SGOT) 13 U/L (15-37) Alanine Aminotransferase (ALT/SGPT) 12 U/L (16-63) Alkaline Phosphatase 53 U/L (46-116) Total Protein 6.7 g/dL (6.4-8.2) Albumin 2.4 g/dL (3.4-5.0) Albumin/Globulin Ratio 0.6 (1.0-1.7) Thyroxine (T4) 5.9 ug/dL (4.5-12.0) Total Triiodothyronine 74 ng/dL (71-180) Glucose (Fingerstick) 136 mg/dL (70-99) 180 mg/dL (70-99) 141 mg/dL (70-99) Test 06/20/18 07:43 Valproic Acid (Depakene) Level 43 mcg/mL (50-100) Valproic Acid Last Dose Date 06/19/2018 Valproic Acid Last Dose Time 2100 Assessment/Plan 73/M with multiple chronic medical problems, recent left hip fracture/repair currently on cipro for UTI admitted to [facility] for mental status and behavior changes. Chronic conditions appear to be stable on current medications. He is DVT risk post-op and with decreased activity, however he is on plavix and will add VINITA hose to left leg and PT/OT as tolerated. Follow up on urine culture result from [place], continue to monitor blood glucose and CBC. Thank you, Dr Gutierrez, for the opportunity to participate in the care of your patient. DEON TEAGUE DO Jun 20, 2018 10:41 am
[2018-06-20 11:15] LABS: THYROID STIM HORMONE (TSH) 2.618 uIU/mL (0.358-3.740)
[2018-06-20 12:37] LABS: BACTERIA,URINE 0 /HPF (0-FEW); BILIRUBIN,URINE NEG (NEG); CLARITY,URINE HAZY; COLOR,URINE YELLOW; GLUCOSE,URINE NEG (NEG); NITRITE,URINE NEG (NEG); RBC,URINE 20-40 /HPF (0-2); SQUAMOUS EPITHELIAL CELL,UR OCC /LPF; UROBILINOGEN,URINE 4 mg/dL (0.2 mg/dL)
[2018-06-20 16:05] VITALS: BP 104/67
[2018-06-20] MEDS: DIVALPROEX ER 500 MG TAB.ER.24H PO SCH (19:28)
[2018-06-20] MEDS: ATORVASTATIN CALCIUM 20 MG TABLET PO SCH (19:28)
[2018-06-20] MEDS: INSULIN GLARGINE 300 UNITS/3 ML INSULN.PEN. SQ SCH (19:31)
--- NOTE | 2018-06-20 22:24 | HP ---
ADMIT DATE: 06/19/2018 PSYCHIATRIC ADMISSION HISTORY AND EVALUATION This is a late entry of date of service 06/19/2018. SUMMARY OF PROGRESS: I met with the patient evening of 06/19/2018, and I have discussed with nursing staff on almost 6 different occasions prior to the patient's admission to evaluate and assess for criteria for inpatient psychiatric hospitalization. The patient was referred to us from [facility] on account of being extremely combative with staff, worsening mood and anxiety symptoms, agitation, racing thoughts, marked paranoia. He has failed outpatient psychiatric interventions. The patient was seen evening of 06/19/2018. CHIEF COMPLAINT: "When I went to rehab, they stopped all my medications. I had a hip fracture in April and since they stopped my medications, I have had all the problems come back." HISTORY OF PRESENT ILLNESS: The patient has a history of bipolar disorder with psychotic features. He has been here with us in the past, but most recently was residing at [facility]. He had a hip fracture, which was surgically corrected at [place], and he was transferred to rehab, where his Depakote, Cymbalta and Wellbutrin were discontinued. The patient states he has had worsening mood swings since then and at [facility], he was increasingly agitated, anxious, paranoid, and combative with staff. Behaviors were deemed dangerous, unmanageable resulting in this referral. PAST PSYCHIATRIC HISTORY: Positive for bipolar disorder with psychotic features. PAST MEDICAL HISTORY: In addition to the left hip fracture, he has a history of atrial fibrillation, coronary artery disease, hypertension, status post NC, PVD, asthma, sleep apnea, TIA, peptic ulcer disease, anemia, osteoarthritis, hearing loss, history of recurrent UTIs, diabetes mellitus, urinary retention, has a Rangel in place, history of coronary artery bypass graft, contract symptoms, coronary stent, MRSA of nares, urinary retention, and non-ST elevation NC, which was most recently the reason for his admission back to [facility]. He does also have UTI. DRUG ALLERGIES: Negative. CODE STATUS: DNR. FAMILY HISTORY: Noncontributory. SOCIAL HISTORY: Takes his medications whole. Ambulates with wheelchair walker. MENTAL STATUS EXAMINATION: The patient was seen individually evening of 06/19/2018. He is quite tired, sedated, seemed to remember me. Speech is coherent, has some latency. Abstraction fair, computation impaired, language function intact, attention span short. Mood and affect somewhat withdrawn. LABORATORY DATA: Reviewed. IMPRESSION: Bipolar 1 disorder, mixed with psychotic features; anxiety disorder, unspecified; impulse control disorder, unspecified; cognitive disorder, unspecified. Current urinary tract infection, status post non-ST elevation myocardial infarction. Rest as above. PLAN: Admit to geropsychiatry unit at [facility]. I will see the patient daily individually from a psychiatric standpoint, medical followup per Dr. David/Dr. Valdez. Restart the patient's Wellbutrin 100 mg twice a day, Depakote ER 1000 mg at bedtime. Check CBC, CMP, valproic acid level in 3 days. Continue Xanax p.r.n. Cymbalta will be restarted 30 mg a day. Estimated length of stay 5 to 7 days. Disposition plans, back to the nursing facility when stable. GRANT HYLTON MD DR: GROVER/joselyn JOB#: [id number] / [id number]
--- NOTE | 2018-06-20 22:46 | PDOC ---
Exam Note: Warner Note: Please also refer to the separate dictated note~for this date of service dictated separately.~Patient seen individually. Discussed the patient with Nursing staff reviewed the chart.~Reviewed interim history and current functioning. Reviewed vital signs,~Labs/ Radiology~and current medications noted below. Continue current treatment with the changes noted in the dictated addendum note Assessment: Vital Signs: Vital Signs Date Time Temp Pulse Resp B/P (MAP) Pulse Ox O2 Delivery O2 Flow Rate FiO2 06/20/18 19:55 95 Room Air 06/20/18 19:29 65 104/67 06/20/18 16:05 98.6 18 06/20/18 10:31 2.0 I&O Intake and Output 06/20/18 07:00 Intake Total 240 ml Balance 240 ml Intake Oral 240 ml Labs: Laboratory Tests Test 06/20/18 07:25 06/20/18 07:43 06/20/18 11:55 06/20/18 12:10 Glucose (Fingerstick) 141 mg/dL (70-99) H 144 mg/dL (70-99) H Valproic Acid Level 43 mcg/mL (50-100) L Valproic Acid Last Dose Date 06/19/2018 Valproic Acid Last Dose Time 2100 Urine Collection Type Void Urine Color Yellow Urine Clarity Hazy Urine pH 7.5 Urine Specific [place] 1.015 Urine Protein 30 mg/dl (NEG-TRACE) Urine Glucose (UA) Neg mg/dL (NEG) Urine Ketones (Stick) Neg mg/dL (NEG) Urine Blood Large (NEG) Urine Nitrite Neg (NEG) Urine Bilirubin Neg (NEG) Urine Urobilinogen Dipstick 4 mg/dL (0.2 mg/dL) Urine Leukocyte Esterase Trace (NEG) Urine RBC 20-40 /HPF (0-2) Urine WBC 1-4 /HPF (0-4) Urine Squamous Epithelial Cells Occ /LPF Urine Bacteria 0 /HPF (0-FEW) Urine Mucus Slight /LPF Test 06/20/18 16:48 06/20/18 19:10 Glucose (Fingerstick) 71 mg/dL (70-99) 77 mg/dL (70-99) Current Medications: Meds: Current Medications Acetaminophen (Tylenol) 650 mg PRN Q6HRS PRN PO PAIN / TEMP; Start 06/19/18 at 15:00; Stop 06/19/18 at 17:59; Status DC Multi-Ingredient Ointment (Analgesic [place]) 1 georgina PRN QID PRN TP MUSCLE PAIN; Start 06/19/18 at 15:00 Al Hydroxide/Mg Hydroxide (Mylanta Plus Xs) 15 ml PRN AFTMEALHC PRN PO DYSPEPSIA; Start 06/19/18 at 15:00 Magnesium Hydroxide (Milk Of Magnesia) 2,400 mg PRN QHS PRN PO CONSTIPATION; Start 06/19/18 at 15:00 Aspirin (Michelle Aspirin) 325 mg DAILY PO Last administered on 06/20/18 08:02; Start 06/20/18 at 09:00 Bupropion HCl (Wellbutrin) 100 mg BID PO Last administered on 06/20/18 19:28; Start 06/19/18 at 21:00 Vitamin D (Vitamin D3) 3,000 unit DAILY PO Last administered on 06/20/18 08:03 ; Start 06/20/18 at 09:00 Clopidogrel Bisulfate (Plavix) 75 mg DAILY PO Last administered on 06/20/18at 08 :03; Start 06/20/18 at 09:00 Diltiazem HCl (Cardizem) 30 mg TID PO Last administered on 06/20/18 19:28; Start 06/19/18 at 21:00 Ferrous Sulfate (Feosol) 325 mg DAILY PO Last administered on 06/20/18at 08:02; Start 06/20/18 at 09:00 Insulin Glargine (Lantus) 25 units QHS SQ Last administered on 06/19/18at 20:11 ; Start 06/19/18 at 21:00 Insulin Human Lispro (HumaLOG) 15 units TIDAC SQ Last administered on 12:19; Start 06/20/18 at 07:30 Albuterol/ Ipratropium (Duoneb) 3 ml RTQID NEB Last administered on 06/20/18at 19:56; Start 06/19/18 at 20:00 Ondansetron HCl (Zofran Odt) 4 mg PRN Q8HRS PRN PO NAUSEA/VOMITING; Start 06/19 at 18:00 Ranolazine (Ranexa) 500 mg BID PO Last administered on 06/20/18 19:29; Start 06/19/18 at 21:00 Tamsulosin HCl (Flomax) 0.4 mg DAILY PO Last administered on 06/20/18 08:02; Start 06/20/18 at 09:00 Acetaminophen (Tylenol) 500 mg PRN Q8HRS PRN PO PAIN / TEMP; Start 06/19/18 at 18:15 Alprazolam (Xanax) 0.5 mg PRN Q8HRS PRN PO ANXIETY / AGITATION; Start 06/19/18 at 18:00 Atorvastatin Calcium (Lipitor) 40 mg QHS PO Last administered on 06/20/18 19: 28; Start 06/19/18 at 21:00 Budesonide (Pulmicort) 0.5 mg RTBID NEB Last administered on 06/20/18 19:56; Start 06/19/18 at 20:00 Carvedilol (Coreg) 3.125 mg BIDWMEALS PO Last administered on 06/20/18 16:58; Start 06/20/18 at 08:00 Divalproex Sodium (Depakote Er) 1,000 mg QHS PO Last administered on 06/20/18 19:28; Start 06/19/18 at 21:00 Duloxetine HCl (Cymbalta) 30 mg DAILY PO Last administered on 06/20/18 08:02; Start 06/20/18 at 09:00 Acetaminophen/ Hydrocodone Bitart (Lortab 5/325) 1 tab PRN Q4HRS PRN PO PAIN Last administered on 06/20/18 12:44; Start 06/19/18 at 18:15 Lactobacillus Rhamnosus (Culturelle) 1 cap BID PO Last administered on 19:28; Start 06/19/18 at 21:00 Pantoprazole Sodium (Protonix) 40 mg DAILYAC PO Last administered on 06/20/18 08:02; Start 06/20/18 at 07:30 Active Scripts Active Reported Cardizem Tablet (Diltiazem Hcl) 30 Mg Tablet 30 Mg PO TID Tamsulosin Hcl 0.4 Mg Cap.er.24h 0.4 Mg PO DAILY Ranexa (Ranolazine) 500 Mg Tab.er.12h 500 Mg PO BID Protonix (Pantoprazole Sodium) 40 Mg Tablet.dr 40 Mg PO DAILYAC Ondansetron Odt (Ondansetron) 4 Mg Tab.rapdis 4 Mg PO PRN Q8HRS PRN Culturelle (Lactobacillus Rhamnosus Gg) 1 Each Capsule 1 Each PO BID Duoneb 0.5-3(2.5) Mg/3 Ml (Albuterol/Ipratropium) 3 Ml Ampul.neb 3 Ml NEB RTQID Humalog (Insulin Lispro) 100 Unit/1 Ml Insuln.pen 15 Unit SQ TIDAC Lantus Solostar (Insulin Glargine,Hum.rec.anlog) 100 Unit/1 Ml Insuln.pen 25 Unit SQ QHS Hydrocodone-Apap 5-325 (Hydrocodone Bit/Acetaminophen) 1 Each Tablet 1 Tab PO PRN Q4HRS PRN Clopidogrel (Clopidogrel Bisulfate) 75 Mg Tablet 75 Mg PO DAILY Carvedilol 3.125 Mg Tablet 3.125 Mg PO BIDWMEALS Budesonide 0.5 Mg/2 Ml Ampul.neb 0.5 Mg NEB RTBID Atorvastatin Calcium 40 Mg Tablet 40 Mg PO QHS Aspirin 325 Mg Tablet 325 Mg PO DAILY Alprazolam 0.5 Mg Tablet 0.5 Mg PO PRN Q8HRS PRN Acetaminophen 500 Mg Tablet 500 Mg PO PRN Q8HRS PRN Ferrous Sulfate 325 Mg Tablet 325 Mg PO DAILY Do not give within 2 hours of antacids or calcium products. Give with food. Divalproex Sodium Er (Divalproex Sodium) 500 Mg Tab.er.24h 1,000 Mg PO HS Give with food. Do NOT crush or chew. Vitamin D3 (Cholecalciferol (Vitamin D3)) 1,000 Unit Tablet 3,000 Unit PO DAILY Wellbutrin (Bupropion Hcl) 100 Mg Tablet 100 Mg PO BID Cymbalta (Duloxetine Hcl) 30 Mg Capsule. 30 Mg PO DAILY I have reviewed the current psychotropics carefully including drug interactions. Risk benefit ratio favors no change other than as noted in my dictated progress note. Diagnosis: Problems: (1) Anxiety disorder (2) Depression (3) Bipolar 1 disorder (4) Difficulty controlling anger GRANT HYLTON MD Jun 20, 2018 22:46
[2018-06-21] MEDS: IPRATRPIUM/ALBUTEROL 0.5/2.5MG 3 ML NEBU. NEB SCH ×4 (05:38→20:02)
[2018-06-21 05:57] VITALS: BP 120/73
[2018-06-21] MEDS: CARVEDILOL 3.125 MG TABLET PO SCH ×2 (07:46→16:56)
[2018-06-21] MEDS: TAMSULOSIN 0.4 MG CAP.ER.24H. PO SCH (07:46)
[2018-06-21] MEDS: DULoxetine HCL 30 MG CAPSULE.DR PO SCH (07:46)
[2018-06-21] MEDS: ASPIRIN 325 MG TABLET PO SCH (07:46)
[2018-06-21] MEDS: LACTOBACILLUS RHAMNOSUS GG 1 CAPSULE. PO SCH ×2 (07:46→20:28)
[2018-06-21] MEDS: buPROPion 100 MG TABLET PO SCH ×2 (07:46→20:33)
[2018-06-21] MEDS: CHOLECALCIFEROL (VITAMIN D3) 1,000 UNIT TABLET PO SCH (07:46)
[2018-06-21] MEDS: dilTIAZem HCL 30 MG TABLET PO SCH ×3 (07:47→20:28)
[2018-06-21] MEDS: PANTOPRAZOLE 40 MG TABLET. PO SCH (07:47)
[2018-06-21] MEDS: CLOPIDOGREL BISULFATE 75 MG TABLET PO SCH (07:47)
[2018-06-21] MEDS: FERROUS SULFATE 325 MG TABLET. PO SCH (07:47)
[2018-06-21] MEDS: RANOLAZINE 500 MG TAB.ER.12H PO SCH ×2 (07:49→20:32)
[2018-06-21] MEDS: INSULIN LISPRO 300 UNITS/3 ML INSULN.PEN. SQ SCH ×3 (09:15→16:57)
[2018-06-21] MEDS: BUDESONIDE 0.5 MG/2 ML NEBU NEB SCH ×2 (09:45→20:02)
[2018-06-21 16:12] VITALS: BP 117/70
[2018-06-21] MEDS: ATORVASTATIN CALCIUM 20 MG TABLET PO SCH (20:29)
[2018-06-21] MEDS: DIVALPROEX ER 500 MG TAB.ER.24H PO SCH (20:29)
[2018-06-21] MEDS: INSULIN GLARGINE 300 UNITS/3 ML INSULN.PEN. SQ SCH (20:41)
--- NOTE | 2018-06-21 20:54 | PDOC ---
Exam Note: Warner Note: Please also refer to the separate dictated note~for this date of service dictated separately.~Patient seen individually. Discussed the patient with Nursing staff reviewed the chart.~Reviewed interim history and current functioning. Reviewed vital signs,~Labs/ Radiology~and current medications noted below. Continue current treatment with the changes noted in the dictated addendum note Assessment: Vital Signs: Vital Signs Date Time Temp Pulse Resp B/P (MAP) Pulse Ox O2 Delivery O2 Flow Rate FiO2 06/21/18 20:32 70 117/70 06/21/18 20:00 96 Room Air 06/21/18 16:12 97.4 17 06/20/18 10:31 2.0 I&O Intake and Output 06/21/18 07:00 Intake Total 720 ml Output Total 350 ml Balance 370 ml Intake Oral 720 ml Output Urine Total 350 ml # Bowel Movements 1 Labs: Laboratory Tests Test 06/21/18 07:22 06/21/18 12:10 06/21/18 16:36 06/21/18 19:57 Glucose (Fingerstick) 118 mg/dL (70-99) H 146 mg/dL (70-99) H 95 mg/dL (70-99) 104 mg/dL (70-99) H Current Medications: Meds: Current Medications Acetaminophen (Tylenol) 650 mg PRN Q6HRS PRN PO PAIN / TEMP; Start 06/19/18 at 15:00; Stop 06/19/18 at 17:59; Status DC Multi-Ingredient Ointment (Analgesic [place]) 1 georgina PRN QID PRN TP MUSCLE PAIN; Start 06/19/18 at 15:00 Al Hydroxide/Mg Hydroxide (Mylanta Plus Xs) 15 ml PRN AFTMEALHC PRN PO DYSPEPSIA; Start 06/19/18 at 15:00 Magnesium Hydroxide (Milk Of Magnesia) 2,400 mg PRN QHS PRN PO CONSTIPATION; Start 06/19/18 at 15:00 Aspirin (Michelle Aspirin) 325 mg DAILY PO Last administered on 06/21/18at 07:46; Start 06/20/18 at 09:00 Bupropion HCl (Wellbutrin) 100 mg BID PO Last administered on 06/21/18at 20:33; Start 06/19/18 at 21:00 Vitamin D (Vitamin D3) 3,000 unit DAILY PO Last administered on 06/21/18 07:46 ; Start 06/20/18 at 09:00 Clopidogrel Bisulfate (Plavix) 75 mg DAILY PO Last administered on 06/21/18 07 :47; Start 06/20/18 at 09:00 Diltiazem HCl (Cardizem) 30 mg TID PO Last administered on 06/21/18 20:28; Start 06/19/18 at 21:00 Ferrous Sulfate (Feosol) 325 mg DAILY PO Last administered on 06/21/18 07:47; Start 06/20/18 at 09:00 Insulin Glargine (Lantus) 25 units QHS SQ Last administered on 06/21/18 20:41 ; Start 06/19/18 at 21:00 Insulin Human Lispro (HumaLOG) 15 units TIDAC SQ Last administered on 16:57; Start 06/20/18 at 07:30 Albuterol/ Ipratropium (Duoneb) 3 ml RTQID NEB Last administered on 06/21/18 20:02; Start 06/19/18 at 20:00 Ondansetron HCl (Zofran Odt) 4 mg PRN Q8HRS PRN PO NAUSEA/VOMITING; Start 06/19 at 18:00 Ranolazine (Ranexa) 500 mg BID PO Last administered on 06/21/18 20:32; Start 06/19/18 at 21:00 Tamsulosin HCl (Flomax) 0.4 mg DAILY PO Last administered on 06/21/18 07:46; Start 06/20/18 at 09:00 Acetaminophen (Tylenol) 500 mg PRN Q8HRS PRN PO PAIN / TEMP; Start 06/19/18 at 18:15 Alprazolam (Xanax) 0.5 mg PRN Q8HRS PRN PO ANXIETY / AGITATION; Start 06/19/18 at 18:00 Atorvastatin Calcium (Lipitor) 40 mg QHS PO Last administered on 06/21/18 20: 29; Start 06/19/18 at 21:00 Budesonide (Pulmicort) 0.5 mg RTBID NEB Last administered on 06/21/18 20:02; Start 06/19/18 at 20:00 Carvedilol (Coreg) 3.125 mg BIDWMEALS PO Last administered on 06/21/18 16:56; Start 06/20/18 at 08:00 Divalproex Sodium (Depakote Er) 1,000 mg QHS PO Last administered on 06/21/18 20:29; Start 06/19/18 at 21:00 Duloxetine HCl (Cymbalta) 30 mg DAILY PO Last administered on 06/21/18 07:46; Start 06/20/18 at 09:00 Acetaminophen/ Hydrocodone Bitart (Lortab 5/325) 1 tab PRN Q4HRS PRN PO PAIN Last administered on 06/20/18 12:44; Start 06/19/18 at 18:15 Lactobacillus Rhamnosus (Culturelle) 1 cap BID PO Last administered on 20:28; Start 06/19/18 at 21:00 Pantoprazole Sodium (Protonix) 40 mg DAILYAC PO Last administered on 06/21/18 07:47; Start 06/20/18 at 07:30 Active Scripts Active Reported Cardizem Tablet (Diltiazem Hcl) 30 Mg Tablet 30 Mg PO TID Tamsulosin Hcl 0.4 Mg Cap.er.24h 0.4 Mg PO DAILY Ranexa (Ranolazine) 500 Mg Tab.er.12h 500 Mg PO BID Protonix (Pantoprazole Sodium) 40 Mg Tablet.dr 40 Mg PO DAILYAC Ondansetron Odt (Ondansetron) 4 Mg Tab.rapdis 4 Mg PO PRN Q8HRS PRN Culturelle (Lactobacillus Rhamnosus Gg) 1 Each Capsule 1 Each PO BID Duoneb 0.5-3(2.5) Mg/3 Ml (Albuterol/Ipratropium) 3 Ml Ampul.neb 3 Ml NEB RTQID Humalog (Insulin Lispro) 100 Unit/1 Ml Insuln.pen 15 Unit SQ TIDAC Lantus Solostar (Insulin Glargine,Hum.rec.anlog) 100 Unit/1 Ml Insuln.pen 25 Unit SQ QHS Hydrocodone-Apap 5-325 (Hydrocodone Bit/Acetaminophen) 1 Each Tablet 1 Tab PO PRN Q4HRS PRN Clopidogrel (Clopidogrel Bisulfate) 75 Mg Tablet 75 Mg PO DAILY Carvedilol 3.125 Mg Tablet 3.125 Mg PO BIDWMEALS Budesonide 0.5 Mg/2 Ml Ampul.neb 0.5 Mg NEB RTBID Atorvastatin Calcium 40 Mg Tablet 40 Mg PO QHS Aspirin 325 Mg Tablet 325 Mg PO DAILY Alprazolam 0.5 Mg Tablet 0.5 Mg PO PRN Q8HRS PRN Acetaminophen 500 Mg Tablet 500 Mg PO PRN Q8HRS PRN Ferrous Sulfate 325 Mg Tablet 325 Mg PO DAILY Do not give within 2 hours of antacids or calcium products. Give with food. Divalproex Sodium Er (Divalproex Sodium) 500 Mg Tab.er.24h 1,000 Mg PO HS Give with food. Do NOT crush or chew. Vitamin D3 (Cholecalciferol (Vitamin D3)) 1,000 Unit Tablet 3,000 Unit PO DAILY Wellbutrin (Bupropion Hcl) 100 Mg Tablet 100 Mg PO BID Cymbalta (Duloxetine Hcl) 30 Mg Capsule.dr 30 Mg PO DAILY I have reviewed the current psychotropics carefully including drug interactions. Risk benefit ratio favors no change other than as noted in my dictated progress note. Diagnosis: Problems: (1) Depression (2) Anxiety disorder (3) Bipolar 1 disorder (4) Difficulty controlling anger GRANT HYLTON MD Jun 21, 2018 20:54
--- NOTE | 2018-06-22 00:48 | PN ---
DATE: 06/20/2018 PSYCHIATRIC PROGRESS NOTE This late entry 06/20/2018 covers elements, not covered in my initial note. SUBJECTIVE: I met with the patient in the evening. The patient slept 7 hours previous evening, blood sugar in the 70s. Lantus was held. Urine has reflex to culture. REVIEW OF SYSTEMS: Ambulation impaired, in his band. No CV, , pulmonary, eye system symptoms on review. MENTAL STATUS EXAM: Oriented to himself, situation, confused, but when he came here, his speech coherent. Affect, mood congruent. No active suicidal or homicidal ideation. Mood is dysphoric, depressed. Affect is mood congruent. LABORATORY DATA: Reviewed. IMPRESSION: Bipolar 1 disorder, mixed with psychotic features; cognitive disorder, unspecified. PLAN: No change from a psychiatric standpoint, continue Cymbalta, Wellbutrin, Neurontin, Depakote, valproic acid level is 43. We may need to increase the Depakote. MAN Rick HYLTON MD DR: GROVER/joselyn JOB#: [id number] / [id number]
[2018-06-22] MEDS: IPRATRPIUM/ALBUTEROL 0.5/2.5MG 3 ML NEBU. NEB SCH ×4 (05:42→20:19)
[2018-06-22 06:24] LABS: BASO % 1 % (0-3); EOS % 1 % (0-3); HEMATOCRIT 27.4 % (39.0-53.0); HEMOGLOBIN 8.9 g/dL (13.0-17.5); LYMPH # 1.6 x10^3/uL (1.0-4.8); LYMPH % 47 % (24-48); MEAN CORPUSCULAR HEMOGLOBIN 31 pg (25-35); MEAN CORPUSCULAR HGB CONC 33 g/dL (31-37); MEAN CORPUSCULAR VOLUME 95 fL (79-100); MONO # 0.3 x10^3/uL (0.0-1.1); MONO % 9 % (0-9); NEUT # 1.4 x10^3uL (1.8-7.7); NEUT % 42 % (31-73); PLATELET COUNT 227 x10^3/uL (140-400); RED BLOOD COUNT 2.88 x10^6/uL (4.30-5.70); RED CELL DISTRIBUTION WIDTH 16.9 % (11.5-14.5); WHITE BLOOD COUNT 3.4 x10^3/uL (4.0-11.0)
[2018-06-22 06:29] VITALS: BP 136/76
[2018-06-22 06:42] LABS: VAL ACID 41 mcg/mL (50-100)
[2018-06-22] MEDS: buPROPion 100 MG TABLET PO SCH ×2 (08:41→20:41)
[2018-06-22] MEDS: ASPIRIN 325 MG TABLET PO SCH (08:41)
[2018-06-22] MEDS: LACTOBACILLUS RHAMNOSUS GG 1 CAPSULE. PO SCH ×2 (08:41→20:40)
[2018-06-22] MEDS: CHOLECALCIFEROL (VITAMIN D3) 1,000 UNIT TABLET PO SCH (08:41)
[2018-06-22] MEDS: PANTOPRAZOLE 40 MG TABLET. PO SCH (08:41)
[2018-06-22] MEDS: CLOPIDOGREL BISULFATE 75 MG TABLET PO SCH (08:41)
[2018-06-22] MEDS: TAMSULOSIN 0.4 MG CAP.ER.24H. PO SCH (08:41)
[2018-06-22] MEDS: DULoxetine HCL 30 MG CAPSULE.DR PO SCH (08:41)
[2018-06-22] MEDS: dilTIAZem HCL 30 MG TABLET PO SCH ×3 (08:42→20:41)
[2018-06-22] MEDS: CARVEDILOL 3.125 MG TABLET PO SCH ×2 (08:42→17:57)
[2018-06-22] MEDS: FERROUS SULFATE 325 MG TABLET. PO SCH (08:42)
[2018-06-22] MEDS: INSULIN LISPRO 300 UNITS/3 ML INSULN.PEN. SQ SCH ×3 (08:48→17:28)
[2018-06-22] MEDS: BUDESONIDE 0.5 MG/2 ML NEBU NEB SCH ×2 (09:51→20:19)
[2018-06-22] MEDS: RANOLAZINE 500 MG TAB.ER.12H PO SCH ×2 (12:58→20:43)
[2018-06-22 16:35] VITALS: BP 111/59
--- NOTE | 2018-06-22 19:58 | PDOC ---
Exam Note: Warner Note: Please also refer to the separate dictated note~for this date of service dictated separately.~Patient seen individually. Discussed the patient with Nursing staff reviewed the chart.~Reviewed interim history and current functioning. Reviewed vital signs,~Labs/ Radiology~and current medications noted below. Continue current treatment with the changes noted in the dictated addendum note Assessment: Vital Signs: Vital Signs Date Time Temp Pulse Resp B/P (MAP) Pulse Ox O2 Delivery O2 Flow Rate FiO2 06/22/18 17:57 75 111/59 06/22/18 16:35 97.6 19 95 06/22/18 09:52 Room Air 06/22/18 06:29 2.0 I&O Intake and Output 06/22/18 06:59 Intake Total 720 ml Output Total 1575 ml Balance -855 ml Intake Oral 720 ml Output Urine Total 1575 ml # Bowel Movements 2 Labs: Laboratory Tests Test 06/22/18 06:16 06/22/18 07:21 06/22/18 11:56 06/22/18 17:03 White Blood Count 3.4 x10^3/uL (4.0-11.0) L Red Blood Count 2.88 x10^6/uL (4.30-5.70) L Hemoglobin 8.9 g/dL (13.0-17.5) L Hematocrit 27.4 % (39.0-53.0) L Mean Corpuscular Volume 95 fL (79-100) Mean Corpuscular Hemoglobin 31 pg (25-35) Mean Corpuscular Hemoglobin Concent 33 g/dL (31-37) Red Cell Distribution Width 16.9 % (11.5-14.5) H Platelet Count 227 x10^3/uL (140-400) Neutrophils (%) (Auto) 42 % (31-73) Lymphocytes (%) (Auto) 47 % (24-48) Monocytes (%) (Auto) 9 % (0-9) Eosinophils (%) (Auto) 1 % (0-3) Basophils (%) (Auto) 1 % (0-3) Neutrophils # (Auto) 1.4 x10^3uL (1.8-7.7) L Lymphocytes # (Auto) 1.6 x10^3/uL (1.0-4.8) Monocytes # (Auto) 0.3 x10^3/uL (0.0-1.1) Eosinophils # (Auto) 0.0 x10^3/uL (0.0-0.7) Basophils # (Auto) 0.0 x10^3/uL (0.0-0.2) Valproic Acid Level 41 mcg/mL (50-100) L Valproic Acid Last Dose Date 06/20/18 Valproic Acid Last Dose Time 2100 Glucose (Fingerstick) 170 mg/dL (70-99) H 117 mg/dL (70-99) H 137 mg/dL (70-99) H Test 06/22/18 19:12 Glucose (Fingerstick) 137 mg/dL (70-99) H Current Medications: Meds: Current Medications Acetaminophen (Tylenol) 650 mg PRN Q6HRS PRN PO PAIN / TEMP; Start 06/19/18 at 15:00; Stop 06/19/18 at 17:59; Status DC Multi-Ingredient Ointment (Analgesic [place]) 1 georgina PRN QID PRN TP MUSCLE PAIN; Start 06/19/18 at 15:00 Al Hydroxide/Mg Hydroxide (Mylanta Plus Xs) 15 ml PRN AFTMEALHC PRN PO DYSPEPSIA; Start 06/19/18 at 15:00 Magnesium Hydroxide (Milk Of Magnesia) 2,400 mg PRN QHS PRN PO CONSTIPATION; Start 06/19/18 at 15:00 Aspirin (Michelle Aspirin) 325 mg DAILY PO Last administered on 06/22/18 08:41; Start 06/20/18 at 09:00 Bupropion HCl (Wellbutrin) 100 mg BID PO Last administered on 06/22/18 08:41; Start 06/19/18 at 21:00 Vitamin D (Vitamin D3) 3,000 unit DAILY PO Last administered on 06/22/18 08:41 ; Start 06/20/18 at 09:00 Clopidogrel Bisulfate (Plavix) 75 mg DAILY PO Last administered on 06/22/18 08 :41; Start 06/20/18 at 09:00 Diltiazem HCl (Cardizem) 30 mg TID PO Last administered on 06/22/18 14:43; Start 06/19/18 at 21:00 Ferrous Sulfate (Feosol) 325 mg DAILY PO Last administered on 06/22/18 08:42; Start 06/20/18 at 09:00 Insulin Glargine (Lantus) 25 units QHS SQ Last administered on 06/21/18 20:41 ; Start 06/19/18 at 21:00 Insulin Human Lispro (HumaLOG) 15 units TIDAC SQ Last administered on 08:48; Start 06/20/18 at 07:30 Albuterol/ Ipratropium (Duoneb) 3 ml RTQID NEB Last administered on 06/22/18 09:51; Start 06/19/18 at 20:00 Ondansetron HCl (Zofran Odt) 4 mg PRN Q8HRS PRN PO NAUSEA/VOMITING; Start 06/19 at 18:00 Ranolazine (Ranexa) 500 mg BID PO Last administered on 06/22/18 12:58; Start 06/19/18 at 21:00 Tamsulosin HCl (Flomax) 0.4 mg DAILY PO Last administered on 06/22/18 08:41; Start 06/20/18 at 09:00 Acetaminophen (Tylenol) 500 mg PRN Q8HRS PRN PO PAIN / TEMP; Start 06/19/18 at 18:15 Alprazolam (Xanax) 0.5 mg PRN Q8HRS PRN PO ANXIETY / AGITATION; Start 06/19/18 at 18:00 Atorvastatin Calcium (Lipitor) 40 mg QHS PO Last administered on 06/21/18 20: 29; Start 06/19/18 at 21:00 Budesonide (Pulmicort) 0.5 mg RTBID NEB Last administered on 06/22/18 09:51; Start 06/19/18 at 20:00 Carvedilol (Coreg) 3.125 mg BIDWMEALS PO Last administered on 06/22/18 17:57; Start 06/20/18 at 08:00 Divalproex Sodium (Depakote Er) 1,000 mg QHS PO Last administered on 06/21/18 20:29; Start 06/19/18 at 21:00; Stop 06/22/18 at 19:22; Status DC Duloxetine HCl (Cymbalta) 30 mg DAILY PO Last administered on 7/30/18at 08:41; Start 06/20/18 at 09:00 Acetaminophen/ Hydrocodone Bitart (Lortab 5/325) 1 tab PRN Q4HRS PRN PO PAIN Last administered on 06/20/18at 12:44; Start 06/19/18 at 18:15 Lactobacillus Rhamnosus (Culturelle) 1 cap BID PO Last administered on 08:41; Start 06/19/18 at 21:00 Pantoprazole Sodium (Protonix) 40 mg DAILYAC PO Last administered on 06/22/18at 08:41; Start 06/20/18 at 07:30 Divalproex Sodium (Depakote Er) 1,500 mg QHS PO ; Start 06/22/18 at 21:00 Active Scripts Active Reported Cardizem Tablet (Diltiazem Hcl) 30 Mg Tablet 30 Mg PO TID Tamsulosin Hcl 0.4 Mg Cap.er.24h 0.4 Mg PO DAILY Ranexa (Ranolazine) 500 Mg Tab.er.12h 500 Mg PO BID Protonix (Pantoprazole Sodium) 40 Mg Tablet.dr 40 Mg PO DAILYAC Ondansetron Odt (Ondansetron) 4 Mg Tab.rapdis 4 Mg PO PRN Q8HRS PRN Culturelle (Lactobacillus Rhamnosus Gg) 1 Each Capsule 1 Each PO BID Duoneb 0.5-3(2.5) Mg/3 Ml (Albuterol/Ipratropium) 3 Ml Ampul.neb 3 Ml NEB RTQID Humalog (Insulin Lispro) 100 Unit/1 Ml Insuln.pen 15 Unit SQ TIDAC Lantus Solostar (Insulin Glargine,Hum.rec.anlog) 100 Unit/1 Ml Insuln.pen 25 Unit SQ QHS Hydrocodone-Apap 5-325 (Hydrocodone Bit/Acetaminophen) 1 Each Tablet 1 Tab PO PRN Q4HRS PRN Clopidogrel (Clopidogrel Bisulfate) 75 Mg Tablet 75 Mg PO DAILY Carvedilol 3.125 Mg Tablet 3.125 Mg PO BIDWMEALS Budesonide 0.5 Mg/2 Ml Ampul.neb 0.5 Mg NEB RTBID Atorvastatin Calcium 40 Mg Tablet 40 Mg PO QHS Aspirin 325 Mg Tablet 325 Mg PO DAILY Alprazolam 0.5 Mg Tablet 0.5 Mg PO PRN Q8HRS PRN Acetaminophen 500 Mg Tablet 500 Mg PO PRN Q8HRS PRN Ferrous Sulfate 325 Mg Tablet 325 Mg PO DAILY Do not give within 2 hours of antacids or calcium products. Give with food. Divalproex Sodium Er (Divalproex Sodium) 500 Mg Tab.er.24h 1,000 Mg PO HS Give with food. Do NOT crush or chew. Vitamin D3 (Cholecalciferol (Vitamin D3)) 1,000 Unit Tablet 3,000 Unit PO DAILY Wellbutrin (Bupropion Hcl) 100 Mg Tablet 100 Mg PO BID Cymbalta (Duloxetine Hcl) 30 Mg Capsule.dr 30 Mg PO DAILY I have reviewed the current psychotropics carefully including drug interactions. Risk benefit ratio favors no change other than as noted in my dictated progress note. Diagnosis: Problems: (1) Depression (2) Anxiety disorder (3) Bipolar 1 disorder (4) Difficulty controlling anger GRANT HYLTON MD Jun 22, 2018 19:58
[2018-06-22] MEDS: ATORVASTATIN CALCIUM 20 MG TABLET PO SCH (20:40)
[2018-06-22] MEDS: INSULIN GLARGINE 300 UNITS/3 ML INSULN.PEN. SQ SCH ×2 (20:44→21:00)
[2018-06-22] MEDS ORDERED: DIVALPROEX ER 500 MG TAB.ER.24H PO SCH (21:00)
[2018-06-23] MEDS: IPRATRPIUM/ALBUTEROL 0.5/2.5MG 3 ML NEBU. NEB SCH ×4 (04:15→20:07)
[2018-06-23 06:03] VITALS: BP 130/62
[2018-06-23] MEDS: INSULIN LISPRO 300 UNITS/3 ML INSULN.PEN. SQ SCH ×3 (08:41→16:30)
[2018-06-23] MEDS: RANOLAZINE 500 MG TAB.ER.12H PO SCH (08:41)
[2018-06-23] MEDS: PANTOPRAZOLE 40 MG TABLET. PO SCH (08:42)
[2018-06-23] MEDS: ASPIRIN 325 MG TABLET PO SCH (08:42)
[2018-06-23] MEDS: CLOPIDOGREL BISULFATE 75 MG TABLET PO SCH (08:42)
[2018-06-23] MEDS: dilTIAZem HCL 30 MG TABLET PO SCH ×2 (08:42→13:29)
[2018-06-23] MEDS: CHOLECALCIFEROL (VITAMIN D3) 1,000 UNIT TABLET PO SCH (08:42)
[2018-06-23] MEDS: LACTOBACILLUS RHAMNOSUS GG 1 CAPSULE. PO SCH (08:42)
[2018-06-23] MEDS: buPROPion 100 MG TABLET PO SCH (08:42)
[2018-06-23] MEDS: FERROUS SULFATE 325 MG TABLET. PO SCH (08:43)
[2018-06-23] MEDS: TAMSULOSIN 0.4 MG CAP.ER.24H. PO SCH (08:43)
[2018-06-23] MEDS: DULoxetine HCL 30 MG CAPSULE.DR PO SCH (08:43)
[2018-06-23] MEDS: CARVEDILOL 3.125 MG TABLET PO SCH ×2 (08:43→17:14)
[2018-06-23] MEDS: BUDESONIDE 0.5 MG/2 ML NEBU NEB SCH ×2 (09:49→20:07)
[2018-06-23 11:40] VITALS: BP 131/59
--- NOTE | 2018-06-23 14:07 | PN ---
DATE: 06/21/2018 This late entry, 06/21/2018, covers elements not covered in my initial note. SUBJECTIVE: I met with the patient in the evening. The patient slept 8-1/4 hours previous evening and has done a little better. He is back on his psychotropics. His urinary catheter was misplaced, got a little irritable about it, but otherwise compliant. He remains on Cipro for his UTI. Culture sensitivity is awaited. REVIEW OF SYSTEMS: Ambulation in wheelchair. No CV, , pulmonary, eye system symptoms on review other than what is noted above. MENTAL STATUS EXAM: Oriented to himself and situation. Speech coherent, less pressured. Abstraction fair, computation impaired, language function intact. Mood and affect somewhat anxious, labile. LABORATORY DATA: Reviewed. IMPRESSION: Unchanged from initial note. PLAN: No change from initial note. Valproic acid level is 43. We may need to increase the Depakote, but I would like him stabilized on the rest of his psychotropics before we do this. MAN Rick HYLTON MD DR: GROVER/joselyn JOB#: [id number] / [id number]
[2018-06-23 16:01] VITALS: BP 118/69
--- NOTE | 2018-06-23 19:57 | PDOC ---
Exam Note: Warner Note: Please also refer to the separate dictated note~for this date of service dictated separately.~Patient seen individually. Discussed the patient with Nursing staff reviewed the chart.~Reviewed interim history and current functioning. Reviewed vital signs,~Labs/ Radiology~and current medications noted below. Continue current treatment with the changes noted in the dictated addendum note Assessment: Vital Signs: Vital Signs Date Time Temp Pulse Resp B/P (MAP) Pulse Ox O2 Delivery O2 Flow Rate FiO2 06/23/18 17:14 78 118/69 06/23/18 16:01 97.0 18 97 06/23/18 15:31 Room Air 06/23/18 11:40 2.0 I&O Intake and Output 06/23/18 07:00 Intake Total 120 ml Output Total 500 ml Balance -380 ml Intake Oral 120 ml Output Urine Total 500 ml # Voids 1 Labs: Laboratory Tests Test 06/23/18 07:40 06/23/18 11:33 06/23/18 16:26 06/23/18 19:12 Glucose (Fingerstick) 142 mg/dL (70-99) H 183 mg/dL (70-99) H 123 mg/dL (70-99) H 91 mg/dL (70-99) Current Medications: Meds: Current Medications Acetaminophen (Tylenol) 650 mg PRN Q6HRS PRN PO PAIN / TEMP; Start 06/19/18 at 15:00; Stop 06/19/18 at 17:59; Status DC Multi-Ingredient Ointment (Analgesic [place]) 1 georgina PRN QID PRN TP MUSCLE PAIN; Start 06/19/18 at 15:00 Al Hydroxide/Mg Hydroxide (Mylanta Plus Xs) 15 ml PRN AFTMEALHC PRN PO DYSPEPSIA; Start 06/19/18 at 15:00 Magnesium Hydroxide (Milk Of Magnesia) 2,400 mg PRN QHS PRN PO CONSTIPATION; Start 06/19/18 at 15:00 Aspirin (Michelle Aspirin) 325 mg DAILY PO Last administered on 06/23/18at 08:42; Start 06/20/18 at 09:00 Bupropion HCl (Wellbutrin) 100 mg BID PO Last administered on 06/23/18at 08:42; Start 06/19/18 at 21:00; Stop 06/23/18 at 19:36; Status DC Vitamin D (Vitamin D3) 3,000 unit DAILY PO Last administered on 06/23/18 08:42 ; Start 06/20/18 at 09:00 Clopidogrel Bisulfate (Plavix) 75 mg DAILY PO Last administered on 06/23/18 08 :42; Start 06/20/18 at 09:00 Diltiazem HCl (Cardizem) 30 mg TID PO Last administered on 06/23/18 13:29; Start 06/19/18 at 21:00 Ferrous Sulfate (Feosol) 325 mg DAILY PO Last administered on 06/23/18 08:43; Start 06/20/18 at 09:00 Insulin Glargine (Lantus) 25 units QHS SQ Last administered on 06/21/18 20:41 ; Start 06/19/18 at 21:00 Insulin Human Lispro (HumaLOG) 15 units TIDAC SQ Last administered on 16:30; Start 06/20/18 at 07:30 Albuterol/ Ipratropium (Duoneb) 3 ml RTQID NEB Last administered on 06/23/18 15:29; Start 06/19/18 at 20:00 Ondansetron HCl (Zofran Odt) 4 mg PRN Q8HRS PRN PO NAUSEA/VOMITING; Start 06/19 at 18:00 Ranolazine (Ranexa) 500 mg BID PO Last administered on 06/23/18 08:41; Start 06/19/18 at 21:00 Tamsulosin HCl (Flomax) 0.4 mg DAILY PO Last administered on 06/23/18 08:43; Start 06/20/18 at 09:00 Acetaminophen (Tylenol) 500 mg PRN Q8HRS PRN PO PAIN / TEMP; Start 06/19/18 at 18:15 Alprazolam (Xanax) 0.5 mg PRN Q8HRS PRN PO ANXIETY / AGITATION; Start 06/19/18 at 18:00 Atorvastatin Calcium (Lipitor) 40 mg QHS PO Last administered on 06/22/18 20: 40; Start 06/19/18 at 21:00 Budesonide (Pulmicort) 0.5 mg RTBID NEB Last administered on 06/23/18 09:49; Start 06/19/18 at 20:00 Carvedilol (Coreg) 3.125 mg BIDWMEALS PO Last administered on 06/23/18at 17:14; Start 06/20/18 at 08:00 Divalproex Sodium (Depakote Er) 1,000 mg QHS PO Last administered on 06/21/18at 20:29; Start 06/19/18 at 21:00; Stop 06/22/18 at 19:22; Status DC Duloxetine HCl (Cymbalta) 30 mg DAILY PO Last administered on 06/23/18at 08:43; Start 06/20/18 at 09:00; Stop 06/23/18 at 19:37; Status DC Acetaminophen/ Hydrocodone Bitart (Lortab 5/325) 1 tab PRN Q4HRS PRN PO PAIN Last administered on 06/20/18at 12:44; Start 06/19/18 at 18:15 Lactobacillus Rhamnosus (Culturelle) 1 cap BID PO Last administered on at 08:42; Start 06/19/18 at 21:00 Pantoprazole Sodium (Protonix) 40 mg DAILYAC PO Last administered on 06/23/18at 08:42; Start 06/20/18 at 07:30 Divalproex Sodium (Depakote Er) 1,500 mg QHS PO Last administered on 06/22/18at 20:42; Start 06/22/18 at 21:00 Bupropion HCl (Wellbutrin) 100 mg BID@0900,1200 PO ; Start 06/24/18 at 09:00 Duloxetine HCl (Cymbalta) 30 mg DAILY PO ; Start 06/24/18 at 09:00 Duloxetine HCl (Cymbalta) 20 mg DAILY PO ; Start 06/24/18 at 09:00 Active Scripts Active Reported Cardizem Tablet (Diltiazem Hcl) 30 Mg Tablet 30 Mg PO TID Tamsulosin Hcl 0.4 Mg Cap.er.24h 0.4 Mg PO DAILY Ranexa (Ranolazine) 500 Mg Tab.er.12h 500 Mg PO BID Protonix (Pantoprazole Sodium) 40 Mg Tablet.dr 40 Mg PO DAILYAC Ondansetron Odt (Ondansetron) 4 Mg Tab.rapdis 4 Mg PO PRN Q8HRS PRN Culturelle (Lactobacillus Rhamnosus Gg) 1 Each Capsule 1 Each PO BID Duoneb 0.5-3(2.5) Mg/3 Ml (Albuterol/Ipratropium) 3 Ml Ampul.neb 3 Ml NEB RTQID Humalog (Insulin Lispro) 100 Unit/1 Ml Insuln.pen 15 Unit SQ TIDAC Lantus Solostar (Insulin Glargine,Hum.rec.anlog) 100 Unit/1 Ml Insuln.pen 25 Unit SQ QHS Hydrocodone-Apap 5-325 (Hydrocodone Bit/Acetaminophen) 1 Each Tablet 1 Tab PO PRN Q4HRS PRN Clopidogrel (Clopidogrel Bisulfate) 75 Mg Tablet 75 Mg PO DAILY Carvedilol 3.125 Mg Tablet 3.125 Mg PO BIDWMEALS Budesonide 0.5 Mg/2 Ml Ampul.neb 0.5 Mg NEB RTBID Atorvastatin Calcium 40 Mg Tablet 40 Mg PO QHS Aspirin 325 Mg Tablet 325 Mg PO DAILY Alprazolam 0.5 Mg Tablet 0.5 Mg PO PRN Q8HRS PRN Acetaminophen 500 Mg Tablet 500 Mg PO PRN Q8HRS PRN Ferrous Sulfate 325 Mg Tablet 325 Mg PO DAILY Do not give within 2 hours of antacids or calcium products. Give with food. Divalproex Sodium Er (Divalproex Sodium) 500 Mg Tab.er.24h 1,000 Mg PO HS Give with food. Do NOT crush or chew. Vitamin D3 (Cholecalciferol (Vitamin D3)) 1,000 Unit Tablet 3,000 Unit PO DAILY Wellbutrin (Bupropion Hcl) 100 Mg Tablet 100 Mg PO BID Cymbalta (Duloxetine Hcl) 30 Mg Capsule.dr 30 Mg PO DAILY I have reviewed the current psychotropics carefully including drug interactions. Risk benefit ratio favors no change other than as noted in my dictated progress note. Diagnosis: Problems: (1) Depression (2) Anxiety disorder (3) Bipolar 1 disorder (4) Difficulty controlling anger GRANT HYLTON MD Jun 23, 2018 19:57
[2018-06-23] MEDS ORDERED: NITROGLYCERIN SUBLINGUAL 0.4 MG BOTTLE OF 25. SL PRN (20:45)
[2018-06-23] MEDS ORDERED: ASPIRIN 81 MG TAB.CHEW PO ONE (20:45)
[2018-06-23 20:55] VITALS: BP 118/69
[2018-06-23] MEDS ORDERED: DULO20CA50 PO (21:48)
[2018-06-23] MEDS ORDERED: NITR0.4T22 SL (21:50)
--- NOTE | 2018-06-24 06:37 | EKG ---
[address] [address] Test Date: 2018-06-23 Test Time: 21:13:18 Pat Name: BURTON RUSSELL Department: Room: [address] [place] [address] Gender: M [employer] Department: : 1945 Requested By: FAY CRAWFORD Order Number: [id number] Reading MD: Measurements Intervals [place] Rate: 77 P: 0 MD: 176 QRS: -3 QRSD: 126 T: -84 QT: 444 QTc: 505 Interpretive Statements SINUS RHYTHM VENTRICULAR PREMATURE COMPLEX(ES) LEFTWARD AXIS LOW LIMB LEAD VOLTAGE NON SPECIFIC INTRAVENTRICULAR BLOCK QRS(T) CONTOUR ABNORMALITY CONSIDER ANTEROLATERAL MYOCARDIAL DAMAGE ABNORMAL ECG RI6.01 Unconfirmed report No previous ECG available for comparison
[2018-06-24] MEDS ORDERED: buPROPion 100 MG TABLET PO SCH (09:00)
[2018-06-24] MEDS ORDERED: DULoxetine HCL 20 MG CAPSULE.DR PO SCH (09:00)
[2018-06-24] MEDS ORDERED: DULoxetine HCL 30 MG CAPSULE.DR PO SCH (09:00)
--- NOTE | 2018-06-24 11:11 | PN ---
DATE: 06/22/2018 This is a late entry for 06/22/2018 and covers elements not covered in my initial note. SUBJECTIVE: I met with the patient in the evening. The patient slept 5-1/2 hours previous evening. He ate some breakfast, nothing for lunch and dinner, was somewhat anxious, labile with nursing staff, rude, refuses to assist himself in his wheelchair or wheel himself and even when he can. REVIEW OF SYSTEMS: Ambulation impaired, in wheelchair. No CV, , pulmonary, eye, ENT system symptoms on review. MENTAL STATUS EXAM: Oriented to himself and situation. Speech coherent, less pressured. Abstraction fair, computation impaired, language function intact, attention span short. Mood and affect somewhat anxious, labile, withdrawn at other times. No active suicidal ideation. LABORATORY DATA: Valproic acid level is 41. IMPRESSION: Bipolar 1 disorder, mixed with psychotic features; anxiety disorder, unspecified. PLAN: Increase Depakote ER from 1000 mg to 1500 mg at bedtime. Check CBC, CMP, valproic acid level, ammonia level in 3 days. Continue rest unchanged. MAN Rick HYLTON MD DR: GROVER/joselyn JOB#: [id number] / [id number]
--- NOTE | 2018-06-25 04:58 | PN ---
DATE: 06/23/2018 PSYCHIATRIC PROGRESS NOTE This is a late entry, 06/23, covers elements not covered in my initial note. SUBJECTIVE: I met with the patient in the evening in his room. The patient has been in bed much of the day. In the morning, he was yelling at nursing staff on 2 separate occasions. Did participate with physical therapy, appears depressed, but states is not any more than usual. He has been getting 1 dosage of Wellbutrin at night, we will make it in the afternoon. REVIEW OF SYSTEMS: Positive for impaired ambulation. No CV, , pulmonary, eye system symptoms on review. He is lying in bed as I met with him in his room. MENTAL STATUS EXAM: Reasonably oriented. Speech is coherent, has some latency. Abstraction fair, computation impaired, language function intact, attention span short. Mood and affect somewhat dysphoric. LABORATORY DATA: Reviewed. IMPRESSION: Bipolar 1 disorder, depressed, in partial remission; anxiety disorder, unspecified. PLAN: Increase Cymbalta from 30 mg a day to 50 mg a day. Change the Wellbutrin as above. Rest unchanged including Depakote ER which was increased to 1500 mg with labs level in 2 days. MAN Rick HYLTON MD DR: GROVER/joselyn JOB#: [id number] / [id number]
--- NOTE | 2018-06-25 13:58 | DS ---
DATE OF DISCHARGE: 06/23/2018 DISCHARGE SUMMARY AND PSYCHIATRIC PROGRESS NOTE This is a late entry for date of service 06/23/2018 and covers elements not covered in my initial note. REASON FOR ADMISSION: Please refer to the admission history for details. Briefly, the patient is a 73-year-old male, referred to us from [facility] on account of increased agitation, anxiety, paranoia, panic. He has been noted to be combative with staff at rehabilitation. He has a diagnosis of bipolar disorder, has failed outpatient psychiatric interventions. SIGNIFICANT FINDINGS AND CLINICAL COURSE: Following admission, the patient was seen daily individually by myself from a psychiatric standpoint, medical followup per Dr. David/Dr. Valdez. The patient had been discontinued on all his psychotropics at the rehab and these were restarted for his bipolar disorder. These were further adjusted and he seemed to be responding somewhat to Wellbutrin 100 mg b.i.d., Xanax p.r.n., Depakote ER 1500 mg at bedtime, Cymbalta 30 mg a day, Neurontin 100 mg 3 times a day. Valproic acid level was subtherapeutic. Depakote is being adjusted and he was doing somewhat better from a psychiatric standpoint. However, he had a recurrent complaints of chest pain, troponin was elevated. Dr. David transferred him to [address] [place] [address] for medical stabilization on 06/23/2018. FINAL DIAGNOSES: Bipolar 1 disorder, mixed with psychotic features, in partial remission; cognitive disorder, unspecified. Probable myocardial infarction. Rest unchanged from admission. DISCHARGE MEDICATIONS: Please refer to EMRAD. DISCHARGE INSTRUCTIONS: Psychiatric medical followup on . MAN Rick HYLTON MD DR: GROVER/joselyn JOB#: [id number] / [id number]
== END 2018-06-23 21:57 | disposition short-term general hospital (02) | DRG 885 ==
LOC: GEROPSY 14:55
PROVIDERS: ADMIT Psychiatry & Neurology Psychiatry; ATTEND Psychiatry & Neurology Psychiatry
DX: F31.64 Bipolar disorder, current episode mixed, severe, with psychotic features (principal); N39.0 Urinary tract infection, site not specified; E11.51 Type 2 diabetes mellitus with diabetic peripheral angiopathy without gangrene; F09 Unspecified mental disorder due to known physiological condition; F41.9 Anxiety disorder, unspecified; F63.9 Impulse disorder, unspecified; G47.33 Obstructive sleep apnea (adult) (pediatric); H91.90 Unspecified hearing loss, unspecified ear; I10 Essential (primary) hypertension; I25.10 Atherosclerotic heart disease of native coronary artery without angina pectoris; I48.91 Unspecified atrial fibrillation; J45.909 Unspecified asthma, uncomplicated; I25.2 Old myocardial infarction; Z66 Do not resuscitate; Z79.02 Long term (current) use of antithrombotics/antiplatelets; Z82.49 Family history of ischemic heart disease and other diseases of the circulatory system; Z86.73 Personal history of transient ischemic attack (TIA), and cerebral infarction without residual deficits; Z87.440 Personal history of urinary (tract) infections; Z95.1 Presence of aortocoronary bypass graft; Z95.5 Presence of coronary angioplasty implant and graft; Z87.11 Personal history of peptic ulcer disease; Z87.81 Personal history of (healed) traumatic fracture
CPT/HCPCS: 36415; 80053; 80061; 80164; 81001; 82306; 82553; 82607; 82947; 83036; 83540; 83550; 83735; 84436; 84443; 84480; 84484; 85007; 85025; 86592; 87086; 93005; 94640; 94760; J1815; J7620; J7626; 97110; 97116; 97530

== ENCOUNTER 2018-06-23 22:05 | Inpatient (IN) | payer MEDICARE, OTHER ==
[~2018-06-23] VITALS: Ht 185.4 cm; Wt 131.1 kg
[~2018-06-23 22:05] MED LIST changes: +ACET500T68 PO; +ALPR0.5T6 PO; +ASPI325T8 PO; +BUDE0.5A11 NEB; +CARV3.122 PO; +CLOP75TA PO; +DILT30TA26 PO; +DULO20CA50 PO; +HYDR-2758 PO; +INSU100I11 SQ; +INSU100I13 SQ; +IPRA3AMP29 NEB; +LACT1CAP21 PO; +NITR0.4T22 SL; +ONDA4TAB12 PO; +PANT40TA3 PO; +RANO500T2 PO; +TAMS0.4C2 PO
[2018-06-23 22:08] VITALS: BP 124/73
[2018-06-23 23:51] VITALS: BP 118/68
[2018-06-24 05:10] VITALS: BP 118/69
[2018-06-24] MEDS ORDERED: ACETAMINOPHEN 500 MG TABLET PO PRN (06:00)
[2018-06-24] MEDS ORDERED: ONDANSETRON ODT 4 MG TAB.RAPDIS PO PRN (06:00)
[2018-06-24] MEDS ORDERED: HYDROcodone/APAP 5/325MG 1 TAB TABLET PO PRN (06:00)
[2018-06-24] MEDS ORDERED: NITROGLYCERIN SUBLINGUAL 0.4 MG BOTTLE OF 25. SL PRN (06:00)
[2018-06-24] MEDS: IPRATRPIUM/ALBUTEROL 0.5/2.5MG 3 ML NEBU. NEB SCH ×4 (06:03→20:40)
[2018-06-24] MEDS: ALPRAZolam 0.5 MG TABLET PO PRN (06:35)
[2018-06-24] MEDS ORDERED: NON FORMULARY ITEM (Budesonide 0.5 MG) NEB SCH (08:00)
[2018-06-24] MEDS: ASPIRIN 325 MG TABLET PO SCH (08:31)
[2018-06-24] MEDS: PANTOPRAZOLE 40 MG TABLET. PO SCH (08:31)
[2018-06-24] MEDS: CARVEDILOL 3.125 MG TABLET PO SCH ×2 (08:31→17:31)
[2018-06-24] MEDS: DULoxetine HCL 30 MG CAPSULE.DR PO SCH (08:32)
[2018-06-24] MEDS: dilTIAZem HCL 30 MG TABLET PO SCH ×3 (08:32→23:11)
[2018-06-24] MEDS: LACTOBACILLUS RHAMNOSUS GG 1 CAPSULE. PO SCH ×2 (08:32→21:35)
[2018-06-24] MEDS: DULoxetine HCL 20 MG CAPSULE.DR PO SCH (08:33)
[2018-06-24] MEDS: CLOPIDOGREL BISULFATE 75 MG TABLET PO SCH (08:33)
[2018-06-24] MEDS: FERROUS SULFATE 325 MG TABLET. PO SCH (08:33)
[2018-06-24] MEDS: CHOLECALCIFEROL (VITAMIN D3) 1,000 UNIT TABLET PO SCH (08:34)
[2018-06-24] MEDS: buPROPion 100 MG TABLET PO SCH ×2 (08:38→12:16)
[2018-06-24] MEDS: TAMSULOSIN 0.4 MG CAP.ER.24H. PO SCH (08:38)
[2018-06-24 08:40] LABS: BASO % 1 % (0-3); EOS % 1 % (0-3); HEMATOCRIT 28.6 % (39.0-53.0); HEMOGLOBIN 9.4 g/dL (13.0-17.5); LYMPH # 1.4 x10^3/uL (1.0-4.8); LYMPH % 39 % (24-48); MEAN CORPUSCULAR HEMOGLOBIN 31 pg (25-35); MEAN CORPUSCULAR HGB CONC 33 g/dL (31-37); MEAN CORPUSCULAR VOLUME 95 fL (79-100); MONO # 0.3 x10^3/uL (0.0-1.1); MONO % 9 % (0-9); NEUT # 1.8 x10^3uL (1.8-7.7); NEUT % 50 % (31-73); PLATELET COUNT 213 x10^3/uL (140-400); RED BLOOD COUNT 3.02 x10^6/uL (4.30-5.70); RED CELL DISTRIBUTION WIDTH 17.2 % (11.5-14.5); WHITE BLOOD COUNT 3.6 x10^3/uL (4.0-11.0)
[2018-06-24] MEDS: INSULIN LISPRO 300 UNITS/3 ML INSULN.PEN. SQ SCH ×3 (08:44→16:30)
[2018-06-24 08:55] LABS: ALBUMIN 2.6 g/dL (3.4-5.0); ALBUMIN/GLOBULIN RATIO 0.7 (1.0-1.7); CALCIUM 8.7 mg/dL (8.5-10.1); CREATININE 0.9 mg/dL (0.7-1.3); GFR 82.5; POTASSIUM 3.8 mmol/L (3.5-5.1); TOTAL BILIRUBIN 0.7 mg/dL (0.2-1.0); TOTAL PROTEIN 6.5 g/dL (6.4-8.2)
[2018-06-24] MEDS ORDERED: RANOLAZINE 500 MG TAB.ER.12H PO SCH (09:00)
--- NOTE | 2018-06-24 09:43 | PDOC2 ---
CONSULT Date of Admission DATE: 06/24/18 TIME: 09:16 Reason for Consult: chest pain, elevated troponin History of Present Illness Mr Colby is a 73year old male patient of Dr Marvin. He has a history of coronary disease with bypass history. He most recently underwent cardiac cath in March of 2018 with patent SKELTON and SVG to OM, M2 grafts. He underwent ORIF May 25, NSTEMI June 16 which was managed medically. He developed some encephalopathy with underlying dementia and though he was recovering well, was transferred to [facility] for optimization of his psych drug regimen. Yesterday he complained of chest pain and a troponin was mildly elevated so he was transferred to the medical floor and consult called. This morning he complains of being very sleepy, he is appropriate and oriented and he denies further chest pain. He does complain of some shortness of breath and cough. He denies increasing congestive symptoms, palpitations, lightheadedness or syncope. Past Medical History Echo:03/19/18 The left ventricular systolic function is normal. The Ejection Fraction is 60-65%. There is normal LV segmental wall motion. Transmitral Doppler flow pattern is Grade I-abnormal relaxation pattern. Mild aortic regurgitation. Trace mitral regurgitation. Trace tricuspid regurgitation. There is no evidence of significant pericardial effusion. Cardiac cath: 04/18/2017 Coronaries: The left main is normal. The LAD is 100% occluded distal to the first diagonal. The circumflex was 100% occluded at the ostium. The RCA was 100 % occluded at the ostium. Saphenous vein graft to the RCA is 100% occluded proximal. Saphenous vein graft that is sequential to the OM and the M2 is patent with mild disease of the mid third but very good flow through the area it is a very large graft. SKELTON graft to the LAD is open and normal. Ventriculogram: The left ventricular ejection fraction was estimated to be about 50%, the left ventricular end-diastolic pressure was 16 mmHg. There was no gradient across the aortic valve. Cardiovascular: AFIB, CAD, CHF, HTN, NV, Other (peripheral vascular disease) Pulmonary: Asthma, Bronchitis, Other (sleep apnea on CPAP) CENTRAL NERVOUS SYSTEM: Peripheral neuropathy, TIA GI: Peptic Ulcer disease Heme/Onc: Anemia NOS Psych: Bipolar, Depression Musculoskeletal: Osteoarthritis Rheumatologic: Other ENT: Other (hearing loss) Renal/: UTI Endocrine: Diabetes Past Surgical History CABG, Cataract Removal, Other (cardiac catheter, coronary stent, left hip fracture) Family History Hypertension Social History ALCOHOL: none Drugs: None Smoking: none Normally resides in a retirement Current Medications Current Medications Aspirin (Michelle Aspirin) 325 mg DAILY PO Last administered on 06/24/18at 08:31; Start 06/24/18 at 09:00 Bupropion HCl (Wellbutrin) 100 mg BID@0900,1200 PO Last administered on at 08:38; Start 06/24/18 at 09:00 Vitamin D (Vitamin D3) 3,000 unit DAILY PO Last administered on 06/24/18at 08:34 ; Start 06/24/18 at 09:00 Clopidogrel Bisulfate (Plavix) 75 mg DAILY PO Last administered on 06/24/18at 08: 33; Start 06/24/18 at 09:00 Diltiazem HCl (Cardizem) 30 mg TID PO Last administered on 06/24/18at 08:32; Start 06/24/18 at 09:00 Ferrous Sulfate (Feosol) 325 mg DAILY PO Last administered on 06/24/18at 08:33; Start 06/24/18 at 09:00 Insulin Glargine (Lantus) 25 units QHS SQ ; Start 06/24/18 at 21:00 Insulin Human Lispro (HumaLOG) 15 units TIDAC SQ Last administered on 06/24/18at 08:44; Start 06/24/18 at 07:30 Albuterol/ Ipratropium (Duoneb) 3 ml RTQID NEB ; Start 06/24/18 at 08:00 Nitroglycerin (Nitrostat) 0.4 mg PRN Q5MIN PRN SL CHEST PAIN; Start 06/24/18 at 06:00 Ranolazine (Ranexa) 500 mg BID PO Last administered on 06/24/18at 08:34; Start at 09:00 Tamsulosin HCl (Flomax) 0.4 mg DAILY PO Last administered on 06/24/18at 08:38; Start 06/24/18 at 09:00 Acetaminophen (Tylenol) 500 mg PRN Q8HRS PRN PO MILD PAIN; Start 06/24/18 at 06: 00 Alprazolam (Xanax) 0.5 mg PRN Q8HRS PRN PO ANXIETY / AGITATION Last administered on 06/24/18at 06:35; Start 06/24/18 at 06:00 Atorvastatin Calcium (Lipitor) 40 mg QHS PO ; Start 06/24/18 at 21:00 Non-Formulary Medication (Budesonide ) 0.5 mg RTBID NEB ; Start 06/24/18 at 08:00 ; Status UNV Carvedilol (Coreg) 3.125 mg BIDWMEALS PO Last administered on 06/24/18at 08:31; Start 06/24/18 at 08:00 Divalproex Sodium (Depakote Er) 1,500 mg HS PO ; Start 06/24/18 at 21:00 Duloxetine HCl (Cymbalta) 20 mg DAILY PO Last administered on 06/24/18at 08:33; Start 06/24/18 at 09:00 Duloxetine HCl (Cymbalta) 30 mg DAILY PO Last administered on 06/24/18at 08:32; Start 06/24/18 at 09:00 Acetaminophen/ Hydrocodone Bitart (Lortab 5/325) 1 tab PRN Q4HRS PRN PO MODERATE PAIN; Start 06/24/18 at 06:00 Lactobacillus Rhamnosus (Culturelle) 1 cap BID PO Last administered on at 08:32; Start 06/24/18 at 09:00 Pantoprazole Sodium (Protonix) 40 mg DAILYAC PO Last administered on 06/24/18at 08:31; Start 06/24/18 at 07:30 Ondansetron HCl (Zofran Odt) 4 mg PRN Q8HRS PRN PO NAUSEA; Start 06/24/18 at 06: 00 Budesonide (Pulmicort) 0.5 mg RTBID NEB ; Start 06/24/18 at 08:00 Active Scripts Active Reported NITROGLYCERIN SubLingual (Nitroglycerin) 0.4 Mg Tab.subl 0.4 Mg SL PRN Q5MIN PRN Cymbalta (Duloxetine Hcl) 20 Mg Capsule.dr 20 Mg PO DAILY Cardizem Tablet (Diltiazem Hcl) 30 Mg Tablet 30 Mg PO TID Tamsulosin Hcl 0.4 Mg Cap.er.24h 0.4 Mg PO DAILY Ranexa (Ranolazine) 500 Mg Tab.er.12h 500 Mg PO BID Protonix (Pantoprazole Sodium) 40 Mg Tablet.dr 40 Mg PO DAILYAC Ondansetron Odt (Ondansetron) 4 Mg Tab.rapdis 4 Mg PO PRN Q8HRS PRN Culturelle (Lactobacillus Rhamnosus Gg) 1 Each Capsule 1 Each PO BID Duoneb 0.5-3(2.5) Mg/3 Ml (Albuterol/Ipratropium) 3 Ml Ampul.neb 3 Ml NEB RTQID Humalog (Insulin Lispro) 100 Unit/1 Ml Insuln.pen 15 Unit SQ TIDAC Lantus Solostar (Insulin Glargine,Hum.rec.anlog) 100 Unit/1 Ml Insuln.pen 25 Unit SQ QHS Hydrocodone-Apap 5-325 (Hydrocodone Bit/Acetaminophen) 1 Each Tablet 1 Tab PO PRN Q4HRS PRN Clopidogrel (Clopidogrel Bisulfate) 75 Mg Tablet 75 Mg PO DAILY Carvedilol 3.125 Mg Tablet 3.125 Mg PO BIDWMEALS Budesonide 0.5 Mg/2 Ml Ampul.neb 0.5 Mg NEB RTBID Atorvastatin Calcium 40 Mg Tablet 40 Mg PO QHS Aspirin 325 Mg Tablet 325 Mg PO DAILY Alprazolam 0.5 Mg Tablet 0.5 Mg PO PRN Q8HRS PRN Acetaminophen 500 Mg Tablet 500 Mg PO PRN Q8HRS PRN Ferrous Sulfate 325 Mg Tablet 325 Mg PO DAILY Do not give within 2 hours of antacids or calcium products. Give with food. Divalproex Sodium Er (Divalproex Sodium) 500 Mg Tab.er.24h 1,500 Mg PO HS Give with food. Do NOT crush or chew. Vitamin D3 (Cholecalciferol (Vitamin D3)) 1,000 Unit Tablet 3,000 Unit PO DAILY Wellbutrin (Bupropion Hcl) 100 Mg Tablet 100 Mg PO BID@0900,1200 Cymbalta (Duloxetine Hcl) 30 Mg Capsule.dr 30 Mg PO DAILY Allergies: Coded Allergies: No Known Drug Allergies (Unverified , 12/11/15) Review of System as per HPI General: Alert, Oriented X3, Cooperative, No acute distress HEENT: Atraumatic, EOMI Lungs: Other (decreased bases without significant crackles, rhonchi or wheezing ) Heart: Regular rate, Normal S1, Normal S2 Abdomen: Normal bowel sounds, Soft Extremities: Other (+edema) Neuro: Normal speech, Strength at 5/5 X4 ext Psych/Mental Status: Mental status NL, Mood NL VITALS Vital Signs Date Time Temp Pulse Resp B/P (MAP) Pulse Ox O2 Delivery O2 Flow Rate FiO2 06/24/18 08:34 83 118/69 06/24/18 05:10 98.0 20 96 Nasal Cannula 2.0 Labs Laboratory Tests Test 06/24/18 02:40 06/24/18 07:09 06/24/18 08:32 Troponin I Quantitative 0.071 ng/mL (0-0.055) 0.069 ng/mL (0-0.055) Glucose (Fingerstick) 120 mg/dL (70-99) White Blood Count 3.6 x10^3/uL (4.0-11.0) Red Blood Count 3.02 x10^6/uL (4.30-5.70) Hemoglobin 9.4 g/dL (13.0-17.5) Hematocrit 28.6 % (39.0-53.0) Mean Corpuscular Volume 95 fL (79-100) Mean Corpuscular Hemoglobin 31 pg (25-35) Mean Corpuscular Hemoglobin Concent 33 g/dL (31-37) Red Cell Distribution Width 17.2 % (11.5-14.5) Platelet Count 213 x10^3/uL (140-400) Neutrophils (%) (Auto) 50 % (31-73) Lymphocytes (%) (Auto) 39 % (24-48) Monocytes (%) (Auto) 9 % (0-9) Eosinophils (%) (Auto) 1 % (0-3) Basophils (%) (Auto) 1 % (0-3) Neutrophils # (Auto) 1.8 x10^3uL (1.8-7.7) Lymphocytes # (Auto) 1.4 x10^3/uL (1.0-4.8) Monocytes # (Auto) 0.3 x10^3/uL (0.0-1.1) Eosinophils # (Auto) 0.0 x10^3/uL (0.0-0.7) Basophils # (Auto) 0.0 x10^3/uL (0.0-0.2) Sodium Level 137 mmol/L (136-145) Potassium Level 3.8 mmol/L (3.5-5.1) Chloride Level 102 mmol/L (98-107) Carbon Dioxide Level 28 mmol/L (21-32) Anion Gap 7 (6-14) Blood Urea Nitrogen 15 mg/dL (8-26) Creatinine 0.9 mg/dL (0.7-1.3) Estimated GFR (Cockcroft-Gault) 82.5 BUN/Creatinine Ratio 17 (6-20) Glucose Level 129 mg/dL (70-99) Calcium Level 8.7 mg/dL (8.5-10.1) Total Bilirubin 0.7 mg/dL (0.2-1.0) Aspartate Amino Transf (AST/SGOT) 12 U/L (15-37) Alanine Aminotransferase (ALT/SGPT) 12 U/L (16-63) Alkaline Phosphatase 48 U/L (46-116) Total Protein 6.5 g/dL (6.4-8.2) Albumin 2.6 g/dL (3.4-5.0) Albumin/Globulin Ratio 0.7 (1.0-1.7) Images EKG - sinus rhythm, PVCs and non specific st/t abn Assessment/Plan 1. chest pain with mildly elevated troponin - Recent NSTEMI, Known 3V CAD with prior CABG and patent SKELTON - LAD, patent SVG to OM, Occluded SVG to RCA with collaterals from LAD. Trop on 06/17 was 0.425, today 0.069. Recommend continued medical mgmt with aspirin, Plavix, statin, beta lisbeth and Ranexa.. Increase Ranexa today. May consider addition of Imdur if reoccurrence of chest pain. 2. chronic diastolic heart failure - CXR and BNP today though he does not appear significantly volume overloaded. Diurese if indicated. 3. asthma/COPD - mgmt per PCP 4. Hypertension - Normal LVEF by echo in February. Pressures well controlled on current therapy. 5. hyperlipidemia - continue statin. 6. Diabetes mellitus - per PCP REYES NIEVES BEESWAX BLEACHER Jun 24, 2018 09:43
[2018-06-24] MEDS ORDERED: RANOLAZINE 500 MG TAB.ER.12H PO ONE (09:45)
[2018-06-24] MEDS: BUDESONIDE 0.5 MG/2 ML NEBU NEB SCH ×2 (09:58→20:40)
[2018-06-24 10:16] VITALS: BP 130/76
--- NOTE | 2018-06-24 11:47 | RAD ---
Single view of the chest. 06/24/2018 10:26 AM Indication: SHORT OF AIR Comparison: None Findings: No pneumothorax is identified. There is mild left basilar opacity which could represent atelectasis, infiltrate, trace effusion. Central vascular congestion appears to be present. Heart size appears mildly enlarged. Prior median sternotomy noted. No acute osseous changes are seen. IMPRESSION: 1.Cardiomegaly and mild central vascular congestion. 2. Left basilar opacity which could represent mild atelectasis, infiltrate, or small effusion Electronically signed by: David Costa MD (06/24/2018 11:44 AM) [id number]
--- NOTE | 2018-06-24 14:55 | HP ---
ADMIT DATE: 06/23/2018 HISTORY OF PRESENT ILLNESS: The patient is a 73-year-old male patient who was admitted [facility] to [facility] 06[facility]. He was referred from [facility] on account of being extremely combative with staff, worsening mood and anxiety symptoms, agitation, racing thoughts, marked paranoia. He has failed outpatient psychiatric intervention, was admitted for inpatient psychiatric stabilization. He apparently complained of chest pain that was described as retrosternal. He apparently was given sublingual nitroglycerin and we did order labs and his troponin was high at 0.067 and therefore he was transferred to [address] [place] [address] after receiving also aspirin 324 mg to do 2 more sets of cardiac enzymes and to consult the Cardiology team. PAST MEDICAL HISTORY: Significant for atrial fibrillation, coronary artery disease, hypertension, myocardial infarction, peripheral vascular disease, bronchial asthma, morbid obesity, obstructive sleep apnea, transient ischemic attack, peptic ulcer disease, anemia, bipolar disorder, depression, osteoarthritis, hearing loss, urinary retention requiring indwelling Rangel catheter and frequent urinary tract infection. PAST SURGICAL HISTORY: Significant for left hip fracture, status post open reduction and internal fixation and coronary artery bypass graft surgery, bilateral cataract extraction and PCI with stent deployment. FAMILY HISTORY: Positive for hypertension. SOCIAL HISTORY: He apparently ambulates in a wheelchair and walker. He is a resident at the [facility]. REVIEW OF SYSTEMS: As per history of present illness. PHYSICAL EXAMINATION: GENERAL: On arrival to the [address] [place] [address], the patient was slightly pale, but no jaundice, cyanosis, lymphadenopathy or thyromegaly. No jugular venous distention. No limb edema. VITAL SIGNS: Her heart rate was 80, blood pressure 124/73, temperature was 97.9, respiratory rate 22 and oxygen saturation was 98% on 2 liters of oxygen. HEENT: Showed normocephalic, atraumatic. NECK: Supple. HEART: Showed normal first and second heart sounds. No gallop, rub or murmur. CHEST: Shows central trachea, equal bilateral expansion, air entry, very few scattered rhonchi, could not appreciate any crepitation. ABDOMEN: Markedly distended, soft, nontender. No guarding or rigidity. No organomegaly. All hernial orifices intact. Bowel sounds normal. NEUROLOGIC: He is awake, alert, responding appropriately. All cranial nerves intact. EXTREMITIES: He moves extremities without difficulty. He apparently ambulates with a walker. LABORATORY DATA: Showed that his troponin is slightly elevated at 0.071. Serum sodium was 137, potassium 3.8. The patient was admitted to do 2 more sets of cardiac enzymes and to consult the cardiac care unit nurse. MEDICATIONS: We will continue with his current medications which include the following: He is on ipratropium bromide, albuterol sulfate by nebulizer 4 times a day, tamsulosin 0.4 mg daily, ferrous sulfate 325 mg once a day, Plavix 75 mg once a day. He is on atorvastatin calcium 40 mg at bedtime, nitroglycerin 0.4 mg sublingually every 5 minutes x 3, carvedilol 3.125 mg twice a day, diltiazem 30 mg 3 times a day, aspirin 325 mg daily, hydrocodone/APAP 5/325 one tablet every 4 hours as needed, divalproex sodium 1500 mg at bedtime. He is on Wellbutrin 100 mg twice a day, duloxetine for Cymbalta 30 mg once a day, alprazolam 0.5 mg every 8 hours as needed, Pulmicort 0.5 mg in 2 mL by nebulizer twice a day, ondansetron 4 mg every 8 hours and Protonix 40 mg daily, lactobacillus rhamnosus 1 tablet twice a day. He is on Lantus insulin 25 units at bedtime and Humalog insulin 50 units before meals, vitamin D3 1000 international units once a day. PHYSICAL EXAMINATION: GENERAL: On examining him, he was resting slightly propped up in bed, in no apparent respiratory distress. No pallor, jaundice, cyanosis, lymphadenopathy or thyromegaly. No jugular venous distension. No limb edema. VITAL SIGNS: His heart rate was 80, blood pressure was 124/73, temperature was 97.9, respiratory rate was 22 and oxygen saturation was 98% on 2 liters of oxygen by nasal cannula. HEENT: Showed normocephalic, atraumatic. NECK: Supple. HEART: Showed normal first and second sounds. No gallop or murmur. CHEST: Clear to auscultation. No crepitation or rhonchi. ABDOMEN: Distended, soft, nontender. NEUROLOGIC: He was awake, alert, responding appropriately. All cranial nerves intact. He moves extremities without difficulty, ambulates with a walker. LABORATORY DATA: His lab work showed his white cell count was 3400, hemoglobin was 8.9, hematocrit 27, MCV 95 and platelet count 227,000. His chemistry showed a serum sodium of 137, potassium 4.2, chloride 102, bicarbonate 29, anion gap of 6, BUN 19, creatinine 1.1, estimated GFR was 65 mL per minute. His glucose 122, calcium was 8.8, magnesium 2. Total bilirubin, AST, ALT, alkaline phosphatase were normal. Total protein was 6.7, albumin was 2.4. His first set of cardiac enzymes showed troponin to be 0.067. PLAN: The plan is to do 2 more sets of cardiac enzymes, consult the Cardiology team and decide on further management accordingly. FAY CRAWFORD MD DR: LUISA/joselyn JOB#: [id number] / [id number]
[2018-06-24 15:19] VITALS: BP 114/64
--- NOTE | 2018-06-24 18:17 | PDOC ---
Exam Note: Warner Note: Please also refer to the separate dictated note~for this date of service dictated separately.~Patient seen individually. Discussed the patient with Nursing staff reviewed the chart.~Reviewed interim history and current functioning. Reviewed vital signs,~Labs/ Radiology~and current medications noted below. Continue current treatment with the changes noted in the dictated addendum note Assessment: Vital Signs: Vital Signs Date Time Temp Pulse Resp B/P (MAP) Pulse Ox O2 Delivery O2 Flow Rate FiO2 06/24/18 17:31 87 114/64 06/24/18 15:59 96 Nasal Cannula 2.0 06/24/18 15:19 98.5 20 I&O Intake and Output 06/24/18 07:00 Intake Total 20 ml Output Total 200 ml Balance -180 ml Intake Oral 20 ml Output Urine Total 200 ml Labs: Laboratory Tests Test 06/24/18 02:40 06/24/18 07:09 06/24/18 08:32 06/24/18 11:28 Troponin I Quantitative 0.071 ng/mL (0-0.055) H 0.069 ng/mL (0-0.055) H Glucose (Fingerstick) 120 mg/dL (70-99) H 127 mg/dL (70-99) H White Blood Count 3.6 x10^3/uL (4.0-11.0) L Red Blood Count 3.02 x10^6/uL (4.30-5.70) L Hemoglobin 9.4 g/dL (13.0-17.5) L Hematocrit 28.6 % (39.0-53.0) L Mean Corpuscular Volume 95 fL (79-100) Mean Corpuscular Hemoglobin 31 pg (25-35) Mean Corpuscular Hemoglobin Concent 33 g/dL (31-37) Red Cell Distribution Width 17.2 % (11.5-14.5) H Platelet Count 213 x10^3/uL (140-400) Neutrophils (%) (Auto) 50 % (31-73) Lymphocytes (%) (Auto) 39 % (24-48) Monocytes (%) (Auto) 9 % (0-9) Eosinophils (%) (Auto) 1 % (0-3) Basophils (%) (Auto) 1 % (0-3) Neutrophils # (Auto) 1.8 x10^3uL (1.8-7.7) Lymphocytes # (Auto) 1.4 x10^3/uL (1.0-4.8) Monocytes # (Auto) 0.3 x10^3/uL (0.0-1.1) Eosinophils # (Auto) 0.0 x10^3/uL (0.0-0.7) Basophils # (Auto) 0.0 x10^3/uL (0.0-0.2) Sodium Level 137 mmol/L (136-145) Potassium Level 3.8 mmol/L (3.5-5.1) Chloride Level 102 mmol/L (98-107) Carbon Dioxide Level 28 mmol/L (21-32) Anion Gap 7 (6-14) Blood Urea Nitrogen 15 mg/dL (8-26) Creatinine 0.9 mg/dL (0.7-1.3) Estimated GFR (Cockcroft-Gault) 82.5 BUN/Creatinine Ratio 17 (6-20) Glucose Level 129 mg/dL (70-99) H Calcium Level 8.7 mg/dL (8.5-10.1) Total Bilirubin 0.7 mg/dL (0.2-1.0) Aspartate Amino Transferase (AST) 12 U/L (15-37) L Alanine Aminotransferase (ALT) 12 U/L (16-63) L Alkaline Phosphatase 48 U/L (46-116) EL-Eez-I-Type Natriuretic Peptide 6635 pg/mL (0-124) H Total Protein 6.5 g/dL (6.4-8.2) Albumin 2.6 g/dL (3.4-5.0) L Albumin/Globulin Ratio 0.7 (1.0-1.7) L Triglycerides Level 87 mg/dL (0-150) Cholesterol Level 117 mg/dL (0-200) LDL Cholesterol, Calculated 69 mg/dL (0-100) VLDL Cholesterol, Calculated 17 mg/dL (0-40) Non-HDL Cholesterol Calculated 86 mg/dL (0-129) HDL Cholesterol 31 mg/dL (40-60) L Cholesterol/HDL Ratio 3.0 Test 06/24/18 16:32 Glucose (Fingerstick) 99 mg/dL (70-99) Current Medications: Meds: Current Medications Aspirin (Michelle Aspirin) 325 mg DAILY PO Last administered on 06/24/18at 08:31; Start 06/24/18 at 09:00 Bupropion HCl (Wellbutrin) 100 mg BID@0900,1200 PO Last administered on at 12:16; Start 06/24/18 at 09:00 Vitamin D (Vitamin D3) 3,000 unit DAILY PO Last administered on 06/24/18at 08:34 ; Start 06/24/18 at 09:00 Clopidogrel Bisulfate (Plavix) 75 mg DAILY PO Last administered on 06/24/18at 08: 33; Start 06/24/18 at 09:00 Diltiazem HCl (Cardizem) 30 mg TID PO Last administered on 06/24/18 14:01; Start 06/24/18 at 09:00 Ferrous Sulfate (Feosol) 325 mg DAILY PO Last administered on 06/24/18at 08:33; Start 06/24/18 at 09:00 Insulin Glargine (Lantus) 25 units QHS SQ ; Start 06/24/18 at 21:00 Insulin Human Lispro (HumaLOG) 15 units TIDAC SQ Last administered on 06/24/18at 12:19; Start 06/24/18 at 07:30 Albuterol/ Ipratropium (Duoneb) 3 ml RTQID NEB Last administered on 06/24/18at 15 :59; Start 06/24/18 at 08:00 Nitroglycerin (Nitrostat) 0.4 mg PRN Q5MIN PRN SL CHEST PAIN; Start 06/24/18 at 06:00 Ranolazine (Ranexa) 500 mg BID PO Last administered on 06/24/18at 08:34; Start at 09:00; Stop 06/24/18 at 09:45; Status DC Tamsulosin HCl (Flomax) 0.4 mg DAILY PO Last administered on 06/24/18at 08:38; Start 06/24/18 at 09:00 Acetaminophen (Tylenol) 500 mg PRN Q8HRS PRN PO MILD PAIN; Start 06/24/18 at 06: 00 Alprazolam (Xanax) 0.5 mg PRN Q8HRS PRN PO ANXIETY / AGITATION Last administered on 06/24/18at 06:35; Start 06/24/18 at 06:00 Atorvastatin Calcium (Lipitor) 40 mg QHS PO ; Start 06/24/18 at 21:00 Non-Formulary Medication (Budesonide ) 0.5 mg RTBID NEB ; Start 06/24/18 at 08:00 ; Status UNV Carvedilol (Coreg) 3.125 mg BIDWMEALS PO Last administered on 06/24/18at 17:31; Start 06/24/18 at 08:00 Divalproex Sodium (Depakote Er) 1,500 mg HS PO ; Start 06/24/18 at 21:00 Duloxetine HCl (Cymbalta) 20 mg DAILY PO Last administered on 06/24/18at 08:33; Start 06/24/18 at 09:00 Duloxetine HCl (Cymbalta) 30 mg DAILY PO Last administered on 06/24/18at 08:32; Start 06/24/18 at 09:00 Acetaminophen/ Hydrocodone Bitart (Lortab 5/325) 1 tab PRN Q4HRS PRN PO MODERATE PAIN; Start 06/24/18 at 06:00 Lactobacillus Rhamnosus (Culturelle) 1 cap BID PO Last administered on at 08:32; Start 06/24/18 at 09:00 Pantoprazole Sodium (Protonix) 40 mg DAILYAC PO Last administered on 06/24/18at 08:31; Start 06/24/18 at 07:30 Ondansetron HCl (Zofran Odt) 4 mg PRN Q8HRS PRN PO NAUSEA; Start 06/24/18 at 06: 00 Budesonide (Pulmicort) 0.5 mg RTBID NEB Last administered on 06/24/18at 09:58; Start 06/24/18 at 08:00 Ranolazine (Ranexa) 1,000 mg BID PO ; Start 06/24/18 at 21:00 Ranolazine (Ranexa) 500 mg 1X ONCE PO Last administered on 06/24/18at 10:29; Start 06/24/18 at 09:45; Stop 06/24/18 at 09:47; Status DC Active Scripts Active Reported NITROGLYCERIN SubLingual (Nitroglycerin) 0.4 Mg Tab.subl 0.4 Mg SL PRN Q5MIN PRN Cymbalta (Duloxetine Hcl) 20 Mg Capsule.dr 20 Mg PO DAILY Cardizem Tablet (Diltiazem Hcl) 30 Mg Tablet 30 Mg PO TID Tamsulosin Hcl 0.4 Mg Cap.er.24h 0.4 Mg PO DAILY Ranexa (Ranolazine) 500 Mg Tab.er.12h 500 Mg PO BID Protonix (Pantoprazole Sodium) 40 Mg Tablet. 40 Mg PO DAILYAC Ondansetron Odt (Ondansetron) 4 Mg Tab.rapdis 4 Mg PO PRN Q8HRS PRN Culturelle (Lactobacillus Rhamnosus Gg) 1 Each Capsule 1 Each PO BID Duoneb 0.5-3(2.5) Mg/3 Ml (Albuterol/Ipratropium) 3 Ml Ampul.neb 3 Ml NEB RTQID Humalog (Insulin Lispro) 100 Unit/1 Ml Insuln.pen 15 Unit SQ TIDAC Lantus Solostar (Insulin Glargine,Hum.rec.anlog) 100 Unit/1 Ml Insuln.pen 25 Unit SQ QHS Hydrocodone-Apap 5-325 (Hydrocodone Bit/Acetaminophen) 1 Each Tablet 1 Tab PO PRN Q4HRS PRN Clopidogrel (Clopidogrel Bisulfate) 75 Mg Tablet 75 Mg PO DAILY Carvedilol 3.125 Mg Tablet 3.125 Mg PO BIDWMEALS Budesonide 0.5 Mg/2 Ml Ampul.neb 0.5 Mg NEB RTBID Atorvastatin Calcium 40 Mg Tablet 40 Mg PO QHS Aspirin 325 Mg Tablet 325 Mg PO DAILY Alprazolam 0.5 Mg Tablet 0.5 Mg PO PRN Q8HRS PRN Acetaminophen 500 Mg Tablet 500 Mg PO PRN Q8HRS PRN Ferrous Sulfate 325 Mg Tablet 325 Mg PO DAILY Do not give within 2 hours of antacids or calcium products. Give with food. Divalproex Sodium Er (Divalproex Sodium) 500 Mg Tab.er.24h 1,500 Mg PO HS Give with food. Do NOT crush or chew. Vitamin D3 (Cholecalciferol (Vitamin D3)) 1,000 Unit Tablet 3,000 Unit PO DAILY Wellbutrin (Bupropion Hcl) 100 Mg Tablet 100 Mg PO BID@0900,1200 Cymbalta (Duloxetine Hcl) 30 Mg Capsule. 30 Mg PO DAILY I have reviewed the current psychotropics carefully including drug interactions. Risk benefit ratio favors no change other than as noted in my dictated progress note. Diagnosis: Problems: (1) Bipolar 1 disorder (2) Anxiety disorder (3) Depression (4) Difficulty controlling anger GRANT HYLTON MD Jun 24, 2018 18:17
[2018-06-24 19:21] VITALS: BP 98/58
[2018-06-24] MEDS ORDERED: ATORVASTATIN CALCIUM 20 MG TABLET PO SCH (21:00)
[2018-06-24] MEDS ORDERED: DIVALPROEX ER 500 MG TAB.ER.24H PO SCH (21:00)
[2018-06-24] MEDS ORDERED: INSULIN GLARGINE 300 UNITS/3 ML INSULN.PEN. SQ SCH (21:00)
[2018-06-24] MEDS: RANOLAZINE 500 MG TAB.ER.12H PO SCH (21:33)
[2018-06-24 22:38] VITALS: BP 109/68
[2018-06-25] MEDS: ALPRAZolam 0.5 MG TABLET PO PRN (02:00)
--- NOTE | 2018-06-25 03:10 | PN ---
DATE: 06/24/2018 SUBJECTIVE: The patient is a 73-year-old male patient who was transferred from [facility] on account of recurrent episode of chest pain and a mildly elevated troponin. He did have 2 more cardiac enzymes which was slightly elevated. It transpired that the patient has recent ixb-FW-tylomgm elevation myocardial infarction and he is known to have 3-vessel coronary artery disease with prior coronary artery bypass graft surgery with patent SKELTON to the left anterior descending artery, patent saphenous vein graft to obtuse marginal. He has occluded saphenous vein graft to right coronary artery with collaterals from left anterior descending. His troponin on June 17 was 0.425 and the cardiologists have seen the patient. They recommended to continue medical management with aspirin, Plavix, statin, beta-lisbeth, and Ranexa and they have increased his Ranexa and if necessary, may consider addition of Imdur if chest pain recurred. When I saw him, he was resting slightly propped up complaining of wheezing, but denied any further episode of chest pain or shortness of breath. PHYSICAL EXAMINATION: GENERAL: When I examined him, he looked pale, but no jaundice, cyanosis, or thyromegaly. No jugular venous distention. No limb edema. VITAL SIGNS: His heart rate was 83, blood pressure 118/69, temperature was 98, respiratory rate was 20, and oxygen saturation was 93% on 2 liters of oxygen by nasal cannula. HEAD, EYES, EARS, NOSE AND THROAT: Showed normocephalic, atraumatic. NECK: Supple. HEART: Showed normal first and second heart sounds with no gallop, rub or murmur. CHEST: Clear to auscultation. No crepitation or rhonchi. ABDOMEN: Distended, soft, nontender. NEUROLOGIC: He was awake, alert, responding appropriately. All cranial nerves intact. He moves all extremities without difficulty, ambulates with a walker. LABORATORY DATA: Her lab work this morning showed a white cell count of 3600, hemoglobin 9.4, hematocrit 29, MCV 95, and platelet count of 213,000 with normal manual differential. His chemistry showed a serum sodium 137, potassium 3.8, chloride 102, bicarbonate 28, anion gap of 7, BUN 15, creatinine 0.9, estimated GFR was 83 mL per minute, his glucose 129, calcium was 8.7. Total bilirubin, AST, ALT, alkaline phosphatase were normal. He has 2 more sets of cardiac enzymes, showed troponin to be 0.071 and 0.069. His beta natriuretic peptide was high at 6635. Total protein was 6.5, albumin was 2.6. ASSESSMENT: According to the dermatology technician, the patient has recent non-ST segment elevation myocardial infarction and they recommended that the patient continues with aggressive medical management. To continue with aspirin, Plavix, statin, beta-blockers and his Ranexa was increased. I will consult Physical and Occupational Therapy and to keep him 1 more day here and if he remains stable, has no more chest pain, we can discharge him back [facility] for inpatient psychiatric stabilization. FAY CRAWFORD MD DR: LUISA/joselyn JOB#: [id number] / [id number]
[2018-06-25] MEDS: BUDESONIDE 0.5 MG/2 ML NEBU NEB SCH (05:24)
[2018-06-25] MEDS: IPRATRPIUM/ALBUTEROL 0.5/2.5MG 3 ML NEBU. NEB SCH ×2 (05:24→11:03)
[2018-06-25 05:55] VITALS: BP 120/71
[2018-06-25] MEDS: FERROUS SULFATE 325 MG TABLET. PO SCH (09:01)
[2018-06-25] MEDS: TAMSULOSIN 0.4 MG CAP.ER.24H. PO SCH (09:01)
[2018-06-25] MEDS: LACTOBACILLUS RHAMNOSUS GG 1 CAPSULE. PO SCH (09:01)
[2018-06-25] MEDS: CLOPIDOGREL BISULFATE 75 MG TABLET PO SCH (09:01)
[2018-06-25] MEDS: DULoxetine HCL 20 MG CAPSULE.DR PO SCH (09:02)
[2018-06-25] MEDS: RANOLAZINE 500 MG TAB.ER.12H PO SCH (09:02)
[2018-06-25] MEDS: DULoxetine HCL 30 MG CAPSULE.DR PO SCH (09:02)
[2018-06-25] MEDS: PANTOPRAZOLE 40 MG TABLET. PO SCH (09:02)
[2018-06-25] MEDS: CARVEDILOL 3.125 MG TABLET PO SCH (09:03)
[2018-06-25] MEDS: dilTIAZem HCL 30 MG TABLET PO SCH ×2 (09:03→14:16)
[2018-06-25] MEDS: ASPIRIN 325 MG TABLET PO SCH (09:03)
[2018-06-25] MEDS: CHOLECALCIFEROL (VITAMIN D3) 1,000 UNIT TABLET PO SCH (09:03)
[2018-06-25] MEDS: buPROPion 100 MG TABLET PO SCH ×2 (09:04→12:00)
[2018-06-25] MEDS: INSULIN LISPRO 300 UNITS/3 ML INSULN.PEN. SQ SCH ×2 (09:08→12:06)
--- NOTE | 2018-06-25 09:10 | PDOC ---
PROGRESS NOTES Assessment 1. chest pain with mildly elevated troponin - Recent NSTEMI, Known 3V CAD with prior CABG and patent SKELTON - LAD, patent SVG to OM, Occluded SVG to RCA with collaterals from LAD. Trop on 06/17 was 0.425, today 0.069. Recommend continued medical mgmt with aspirin, Plavix, statin, beta lisbeth and Ranexa. May consider addition of Imdur if reoccurrence of chest pain. He remains angina free at this time. 2. chronic diastolic heart failure - Compensated. 3. asthma/COPD - mgmt per PCP 4. Hypertension - Normal LVEF by echo in February. Pressures well controlled on current therapy. 5. hyperlipidemia - continue statin. 6. Diabetes mellitus - per PCP Subjective no chest pain, breathing easy, no palpitations, no lightheadedness,. Possible transfer back to [facility] today Objective Vital Signs Date Time Temp Pulse Resp B/P (MAP) Pulse Ox O2 Delivery O2 Flow Rate FiO2 06/25/18 09:03 74 120/71 06/25/18 05:55 20 91 Nasal Cannula 2.0 06/24/18 22:38 98.2 Intake and Output 06/25/18 07:00 Intake Total 720 ml Output Total 475 ml Balance 245 ml Intake Oral 720 ml Output Urine Total 475 ml Abdomen: Soft Heart: Regular rate, Normal S1, Normal S2 Extremities: No cyanosis, Normal pulses General: Alert, Oriented X3, Cooperative, No acute distress Lungs: Other (decreased bases) Neuro: Normal speech Psych/Mental Status: Mood NL Review of Relevant I have reviewed the following items kendrick (where applicable) has been applied. Labs Laboratory Tests Test 06/24/18 00:10 06/24/18 02:40 06/24/18 07:09 06/24/18 08:32 Nasal Screen MRSA (PCR) Negative (Negative) Troponin I Quantitative 0.071 ng/mL (0-0.055) 0.069 ng/mL (0-0.055) Glucose (Fingerstick) 120 mg/dL (70-99) White Blood Count 3.6 x10^3/uL (4.0-11.0) Red Blood Count 3.02 x10^6/uL (4.30-5.70) Hemoglobin 9.4 g/dL (13.0-17.5) Hematocrit 28.6 % (39.0-53.0) Mean Corpuscular Volume 95 fL (79-100) Mean Corpuscular Hemoglobin 31 pg (25-35) Mean Corpuscular Hemoglobin Concent 33 g/dL (31-37) Red Cell Distribution Width 17.2 % (11.5-14.5) Platelet Count 213 x10^3/uL (140-400) Neutrophils (%) (Auto) 50 % (31-73) Lymphocytes (%) (Auto) 39 % (24-48) Monocytes (%) (Auto) 9 % (0-9) Eosinophils (%) (Auto) 1 % (0-3) Basophils (%) (Auto) 1 % (0-3) Neutrophils # (Auto) 1.8 x10^3uL (1.8-7.7) Lymphocytes # (Auto) 1.4 x10^3/uL (1.0-4.8) Monocytes # (Auto) 0.3 x10^3/uL (0.0-1.1) Eosinophils # (Auto) 0.0 x10^3/uL (0.0-0.7) Basophils # (Auto) 0.0 x10^3/uL (0.0-0.2) Sodium Level 137 mmol/L (136-145) Potassium Level 3.8 mmol/L (3.5-5.1) Chloride Level 102 mmol/L (98-107) Carbon Dioxide Level 28 mmol/L (21-32) Anion Gap 7 (6-14) Blood Urea Nitrogen 15 mg/dL (8-26) Creatinine 0.9 mg/dL (0.7-1.3) Estimated GFR (Cockcroft-Gault) 82.5 BUN/Creatinine Ratio 17 (6-20) Glucose Level 129 mg/dL (70-99) Calcium Level 8.7 mg/dL (8.5-10.1) Total Bilirubin 0.7 mg/dL (0.2-1.0) Aspartate Amino Transf (AST/SGOT) 12 U/L (15-37) Alanine Aminotransferase (ALT/SGPT) 12 U/L (16-63) Alkaline Phosphatase 48 U/L (46-116) OL-Byu-X-Type Natriuretic Peptide 6635 pg/mL (0-124) Total Protein 6.5 g/dL (6.4-8.2) Albumin 2.6 g/dL (3.4-5.0) Albumin/Globulin Ratio 0.7 (1.0-1.7) Triglycerides Level 87 mg/dL (0-150) Cholesterol Level 117 mg/dL (0-200) LDL Cholesterol, Calculated 69 mg/dL (0-100) VLDL Cholesterol, Calculated 17 mg/dL (0-40) Non-HDL Cholesterol Calculated 86 mg/dL (0-129) HDL Cholesterol 31 mg/dL (40-60) Cholesterol/HDL Ratio 3.0 Test 06/24/18 11:28 06/24/18 16:32 06/24/18 20:22 06/25/18 07:44 Glucose (Fingerstick) 127 mg/dL (70-99) 99 mg/dL (70-99) 117 mg/dL (70-99) 121 mg/dL (70-99) Medications Current Medications Aspirin (Michelle Aspirin) 325 mg DAILY PO Last administered on 06/25/18 09:03; Start 06/24/18 at 09:00 Bupropion HCl (Wellbutrin) 100 mg BID@0900,1200 PO Last administered on 09:04; Start 06/24/18 at 09:00 Vitamin D (Vitamin D3) 3,000 unit DAILY PO Last administered on 06/25/18 09:03 ; Start 06/24/18 at 09:00 Clopidogrel Bisulfate (Plavix) 75 mg DAILY PO Last administered on 06/25/18at 09: 01; Start 06/24/18 at 09:00 Diltiazem HCl (Cardizem) 30 mg TID PO Last administered on 06/25/18at 09:03; Start 06/24/18 at 09:00 Ferrous Sulfate (Feosol) 325 mg DAILY PO Last administered on 06/25/18 09:01; Start 06/24/18 at 09:00 Insulin Glargine (Lantus) 25 units QHS SQ Last administered on 06/24/18at 21:40; Start 06/24/18 at 21:00 Insulin Human Lispro (HumaLOG) 15 units TIDAC SQ Last administered on 06/25/18at 09:08; Start 06/24/18 at 07:30 Albuterol/ Ipratropium (Duoneb) 3 ml RTQID NEB Last administered on 06/25/18at 05 :24; Start 06/24/18 at 08:00 Nitroglycerin (Nitrostat) 0.4 mg PRN Q5MIN PRN SL CHEST PAIN; Start 06/24/18 at 06:00 Ranolazine (Ranexa) 500 mg BID PO Last administered on 06/24/18at 08:34; Start at 09:00; Stop 06/24/18 at 09:45; Status DC Tamsulosin HCl (Flomax) 0.4 mg DAILY PO Last administered on 06/25/18at 09:01; Start 06/24/18 at 09:00 Acetaminophen (Tylenol) 500 mg PRN Q8HRS PRN PO MILD PAIN Last administered on 06/25/18at 02:48; Start 06/24/18 at 06:00 Alprazolam (Xanax) 0.5 mg PRN Q8HRS PRN PO ANXIETY / AGITATION Last administered on 06/25/18at 02:00; Start 06/24/18 at 06:00 Atorvastatin Calcium (Lipitor) 40 mg QHS PO Last administered on 06/24/18at 21:35 ; Start 06/24/18 at 21:00 Non-Formulary Medication (Budesonide ) 0.5 mg RTBID NEB ; Start 06/24/18 at 08:00 ; Status UNV Carvedilol (Coreg) 3.125 mg BIDWMEALS PO Last administered on 06/25/18at 09:03; Start 06/24/18 at 08:00 Divalproex Sodium (Depakote Er) 1,500 mg HS PO Last administered on 06/24/18at 21 :32; Start 06/24/18 at 21:00 Duloxetine HCl (Cymbalta) 20 mg DAILY PO Last administered on 06/25/18at 09:02; Start 06/24/18 at 09:00 Duloxetine HCl (Cymbalta) 30 mg DAILY PO Last administered on 06/25/18at 09:02; Start 06/24/18 at 09:00 Acetaminophen/ Hydrocodone Bitart (Lortab 5/325) 1 tab PRN Q4HRS PRN PO MODERATE PAIN; Start 06/24/18 at 06:00 Lactobacillus Rhamnosus (Culturelle) 1 cap BID PO Last administered on at 09:01; Start 06/24/18 at 09:00 Pantoprazole Sodium (Protonix) 40 mg DAILYAC PO Last administered on 06/25/18at 09:02; Start 06/24/18 at 07:30 Ondansetron HCl (Zofran Odt) 4 mg PRN Q8HRS PRN PO NAUSEA; Start 06/24/18 at 06: 00 Budesonide (Pulmicort) 0.5 mg RTBID NEB Last administered on 06/25/18at 05:24; Start 06/24/18 at 08:00 Ranolazine (Ranexa) 1,000 mg BID PO Last administered on 06/25/18at 09:02; Start 06/24/18 at 21:00 Ranolazine (Ranexa) 500 mg 1X ONCE PO Last administered on 06/24/18at 10:29; Start 06/24/18 at 09:45; Stop 06/24/18 at 09:47; Status DC Active Scripts Active Reported NITROGLYCERIN SubLingual (Nitroglycerin) 0.4 Mg Tab.subl 0.4 Mg SL PRN Q5MIN PRN Cymbalta (Duloxetine Hcl) 20 Mg Capsule.dr 20 Mg PO DAILY Cardizem Tablet (Diltiazem Hcl) 30 Mg Tablet 30 Mg PO TID Tamsulosin Hcl 0.4 Mg Cap.er.24h 0.4 Mg PO DAILY Ranexa (Ranolazine) 500 Mg Tab.er.12h 500 Mg PO BID Protonix (Pantoprazole Sodium) 40 Mg Tablet.dr 40 Mg PO DAILYAC Ondansetron Odt (Ondansetron) 4 Mg Tab.rapdis 4 Mg PO PRN Q8HRS PRN Culturelle (Lactobacillus Rhamnosus Gg) 1 Each Capsule 1 Each PO BID Duoneb 0.5-3(2.5) Mg/3 Ml (Albuterol/Ipratropium) 3 Ml Ampul.neb 3 Ml NEB RTQID Humalog (Insulin Lispro) 100 Unit/1 Ml Insuln.pen 15 Unit SQ TIDAC Lantus Solostar (Insulin Glargine,Hum.rec.anlog) 100 Unit/1 Ml Insuln.pen 25 Unit SQ QHS Hydrocodone-Apap 5-325 (Hydrocodone Bit/Acetaminophen) 1 Each Tablet 1 Tab PO PRN Q4HRS PRN Clopidogrel (Clopidogrel Bisulfate) 75 Mg Tablet 75 Mg PO DAILY Carvedilol 3.125 Mg Tablet 3.125 Mg PO BIDWMEALS Budesonide 0.5 Mg/2 Ml Ampul.neb 0.5 Mg NEB RTBID Atorvastatin Calcium 40 Mg Tablet 40 Mg PO QHS Aspirin 325 Mg Tablet 325 Mg PO DAILY Alprazolam 0.5 Mg Tablet 0.5 Mg PO PRN Q8HRS PRN Acetaminophen 500 Mg Tablet 500 Mg PO PRN Q8HRS PRN Ferrous Sulfate 325 Mg Tablet 325 Mg PO DAILY Do not give within 2 hours of antacids or calcium products. Give with food. Divalproex Sodium Er (Divalproex Sodium) 500 Mg Tab.er.24h 1,500 Mg PO HS Give with food. Do NOT crush or chew. Vitamin D3 (Cholecalciferol (Vitamin D3)) 1,000 Unit Tablet 3,000 Unit PO DAILY Wellbutrin (Bupropion Hcl) 100 Mg Tablet 100 Mg PO BID@0900,1200 Cymbalta (Duloxetine Hcl) 30 Mg Capsule.dr 30 Mg PO DAILY Vitals/I & O Vital Sign - Last 24 Hours 06/24/18 06/24/18 06/24/18 06/24/18 10:00 10:16 10:29 14:01 Temp 97.5 Pulse 58 83 83 Resp 20 B/P (MAP) 130/76 (94) 118/69 118/69 Pulse Ox 93 96 O2 Delivery Nasal Cannula Nasal Cannula O2 Flow Rate 2.0 2.0 06/24/18 06/24/18 06/24/18 06/24/18 15:19 15:59 17:31 19:21 Temp 98.5 97.8 Pulse 87 87 86 Resp 20 24 B/P (MAP) 114/64 (81) 114/64 98/58 (71) Pulse Ox 93 96 97 O2 Delivery Nasal Cannula Nasal Cannula Nasal Cannula O2 Flow Rate 2.0 2.0 2.0 06/24/18 06/24/18 06/24/18 06/24/18 19:59 20:42 21:33 22:38 Temp 98.2 Pulse 86 75 Resp 20 B/P (MAP) 98/58 109/68 (82) Pulse Ox 94 O2 Delivery Nasal Cannula Nasal Cannula Nasal Cannula O2 Flow Rate 2.0 2.0 2.0 06/24/18 06/25/18 06/25/18 06/25/18 23:11 05:25 05:55 09:02 Pulse 75 74 74 Resp 20 B/P (MAP) 109/68 120/71 (87) 120/71 Pulse Ox 91 O2 Delivery Nasal Cannula Nasal Cannula O2 Flow Rate 2.0 2.0 06/25/18 06/25/18 09:03 09:03 Pulse 74 74 B/P (MAP) 120/71 120/71 Intake and Output 06/24/18 06/24/18 06/25/18 15:00 23:00 07:00 Intake Total 360 ml 240 ml 120 ml Output Total 475 ml Balance 360 ml -235 ml 120 ml REYES NIEVES [employer] Jun 25, 2018 09:10
[2018-06-25 10:50] VITALS: BP 102/62
[2018-06-25 14:16] VITALS: BP 102/63
--- NOTE | 2018-06-25 16:31 | PN ---
DATE: 06/25/2018 SUBJECTIVE: The patient is sitting comfortably in his recliner, eating his breakfast, in no apparent distress. On questioning him, he stated that he is tired. Denied any chest pain, denied any shortness of breath. Denied any wheezing. He actually did work with physical therapy and apparently underwent hip replacement recently and was at [facility] before he was admitted to [facility] where he sustained a non-ST segment elevation myocardial infarction. Apparently, he underwent open reduction and internal fixation on 05/25/2018 and non-ST segment elevation myocardial infarction on 06/16/2018, it was managed medically. He developed some encephalopathy with underlying dementia and thought, he was recovering well and was transferred to [facility] for optimization of his psychotropic drug regimen and he was transferred to [address] [place] [address] because he complained of chest pain and his troponin was mildly elevated and Cardiology was consulted. No changes in his medication except I increased Ranexa to 1000 mg twice a day with a plan to add Imdur if he continued to have chest pain. PHYSICAL EXAMINATION: GENERAL: When I examined him today, he looked well and was clearly in no apparent respiratory distress, pale, but no jaundice, cyanosis, lymphadenopathy or thyromegaly. No jugular venous distention. No limb edema. VITAL SIGNS: Her heart rate was 74, blood pressure 120/71, temperature was 98.2, respiratory rate 20, and oxygen saturation was 91% on 2 liters of oxygen. HEAD, EYES, EARS, NOSE AND THROAT: Showed normocephalic, atraumatic. NECK: Supple. HEART: Showed normal first and second heart sounds. No gallop, rub or murmur. CHEST: Clear to auscultation. No crepitation or rhonchi. ABDOMEN: Distended, soft, nontender. No guarding or rigidity. No organomegaly. Hernial orifice intact. Bowel sounds normal. NEUROLOGIC: He was awake, alert, responding appropriately. Cranial nerves intact. He moves extremities without difficulty. LABORATORY DATA: As of yesterday showed a white cell count of 3600, hemoglobin 9.4, hematocrit 28.6, MCV 95 and platelet count of 213,000. His chemistry showed a serum sodium of 137, potassium 3.8, chloride 102, bicarbonate 28, anion gap of 7, BUN 15, creatinine 0.9, estimated GFR was 82 mL per minute, his glucose 129, calcium was 8.7. Total bilirubin, AST, ALT, alkaline phosphatase were normal. Total protein was 6.5, albumin was 2.6. His fasting lipid profile showed serum triglycerides were 87, total cholesterol 117, LDL cholesterol was 69 and VLDL was 17, HDL cholesterol was 31 and cholesterol to HDL cholesterol ratio was 3. His nasal screen for MRSA by PCR was negative. IMPRESSION AND PLAN: 1. In summary, this is a 73-year-old male patient who was transferred from [facility] because of chest pain and slightly elevated troponin. We did consult the Cardiology team and apparently the patient has recent non-ST segment elevation myocardial infarction on 06/16/2018 at [facility] and he is known to have a 3-vessel coronary artery disease with prior CABG and a patent SKELTON to LAD, patent SVG to obtuse marginal and occluded saphenous vein graft to right coronary artery with collaterals from left anterior descending. The Cardiology team recommended medical management with aspirin, Plavix, statin, beta blockers, and Ranexa. His Ranexa was increased to 1000 mg twice a day with a plan to add Imdur if recurrence of chest pain. 2. The patient is known to have chronic diastolic congestive heart failure and was diuresed. 3. Asthma, COPD for which he is on bronchodilator. 4. Hypertension, well controlled. 5. Hyperlipidemia. Continue statin. 6. Type 2 diabetes, seems to be reasonably controlled. PLAN: My plan is to contact the [facility] team to screen him for whether he qualifies to go upstairs. Otherwise, he probably needs to be in a rehab center as he underwent open reduction and internal fixation of his left hip fracture on 05/25/2018 and he still requires further rehabilitation. FAY CRAWFORD MD DR: LUISA/joselyn JOB#: [id number] / [id number]
--- NOTE | 2018-06-27 01:20 | PN ---
DATE: 06/24/2018 PSYCHIATRIC PROGRESS NOTE/CONSULTATION This is a late entry, 06/24, covers elements not covered in my initial note. SUBJECTIVE: I met with the patient evening of 06/24. I have been asked to consult on the patient and follow him from a psychiatric standpoint after he was transferred to [address] [place] [address] Medical/Surgical floor from [facility] when he developed chest pain with some elevation of troponin and past history of [place], cardiac bypass surgery, and stent placement. The patient has been admitted to [facility] for worsening symptoms of his bipolar disorder with agitation after his psychotropics, mood stabilizers were discontinued while he was in rehab following surgery. He was being stabilized, developed the above symptoms, transferred to [address] [place] [address], continues to be somewhat withdrawn at times, irritable, labile, but not aggressive. REVIEW OF SYSTEMS: Ambulation impaired. He is lying in bed, some difficulty with breathing. No CV, system symptoms on review. MENTAL STATUS EXAM: Reasonably oriented. Speech is coherent, abstraction fair, computation impaired, language function intact, attention span short. Mood and affect withdrawn. No active psychotic symptoms, suicidal or homicidal ideation. IMPRESSION: Bipolar 1 disorder, depressed; anxiety disorder, unspecified. Rest unchanged. PLAN: No change from a psychiatric standpoint. I have reviewed the EMRAD. We will continue psychotropics unchanged for now. GRANT HYLTON MD DR: GROVER/joselyn JOB#: [id number] / [id number]
== END 2018-06-25 14:28 | DRG 313 ==
LOC: 1 SOUTH 22:05
PROVIDERS: ADMIT Internal Medicine; ATTEND Internal Medicine
DX: R07.9 Chest pain, unspecified (principal); I50.32 Chronic diastolic (congestive) heart failure; E11.51 Type 2 diabetes mellitus with diabetic peripheral angiopathy without gangrene; E78.5 Hyperlipidemia, unspecified; F31.9 Bipolar disorder, unspecified; F41.9 Anxiety disorder, unspecified; G47.33 Obstructive sleep apnea (adult) (pediatric); H91.90 Unspecified hearing loss, unspecified ear; I11.0 Hypertensive heart disease with heart failure; I25.10 Atherosclerotic heart disease of native coronary artery without angina pectoris; E11.42 Type 2 diabetes mellitus with diabetic polyneuropathy; Z96.649 Presence of unspecified artificial hip joint; M19.90 Unspecified osteoarthritis, unspecified site; I48.91 Unspecified atrial fibrillation; J44.9 Chronic obstructive pulmonary disease, unspecified; Z79.02 Long term (current) use of antithrombotics/antiplatelets; Z79.82 Long term (current) use of aspirin; Z79.899 Other long term (current) drug therapy; Z82.49 Family history of ischemic heart disease and other diseases of the circulatory system; Z86.73 Personal history of transient ischemic attack (TIA), and cerebral infarction without residual deficits; Z87.11 Personal history of peptic ulcer disease; Z95.5 Presence of coronary angioplasty implant and graft; Z98.41 Cataract extraction status, right eye; Z98.42 Cataract extraction status, left eye; Z87.440 Personal history of urinary (tract) infections; Z79.4 Long term (current) use of insulin; Z95.1 Presence of aortocoronary bypass graft; I25.2 Old myocardial infarction
CPT/HCPCS: 36415; 71045; 80053; 80061; 82947; 83880; 84443; 84484; 85025; 87641; 94640; J1815; J7620; J7626

== ENCOUNTER 2018-06-25 12:56 | Inpatient (IN) | payer MEDICARE, OTHER ==
[~2018-06-25] VITALS: Ht 185.4 cm; Wt 128.4 kg
[2018-06-25] MEDS ORDERED: MAG HYDROX/AL HYDROX/SIMETH 30 ML ORAL.SUSP PO PRN (15:15)
[2018-06-25] MEDS ORDERED: METHYL SALICYLATE/MENTHOL TOPICAL OINTMENT 29GM TUBE. TP PRN (15:15)
[2018-06-25] MEDS ORDERED: ACETAMINOPHEN 325 MG TABLET PO PRN (15:15)
[2018-06-25] MEDS ORDERED: ACETAMINOPHEN 500 MG TABLET PO PRN (15:45)
[2018-06-25 16:00] VITALS: BP 102/63
[2018-06-25] MEDS ORDERED: ONDANSETRON ODT 4 MG TAB.RAPDIS PO PRN (16:00)
[2018-06-25] MEDS ORDERED: HYDROcodone/APAP 5/325MG 1 TAB TABLET PO PRN (16:00)
[2018-06-25] MEDS: IPRATRPIUM/ALBUTEROL 0.5/2.5MG 3 ML NEBU. NEB SCH ×2 (16:38→21:42)
[2018-06-25] MEDS: CARVEDILOL 3.125 MG TABLET PO SCH (17:00)
[2018-06-25] MEDS: INSULIN LISPRO 300 UNITS/3 ML INSULN.PEN. SQ SCH (18:16)
[2018-06-25 20:00] VITALS: BP 93/60
[2018-06-25] MEDS: LACTOBACILLUS RHAMNOSUS GG 1 CAPSULE. PO SCH (20:37)
[2018-06-25] MEDS: dilTIAZem HCL 30 MG TABLET PO SCH (20:43)
[2018-06-25] MEDS: RANOLAZINE 500 MG TAB.ER.12H PO SCH (20:43)
[2018-06-25] MEDS: DIVALPROEX ER 500 MG TAB.ER.24H PO SCH (20:43)
[2018-06-25] MEDS: ATORVASTATIN CALCIUM 20 MG TABLET PO SCH (20:43)
[2018-06-25] MEDS: INSULIN GLARGINE 300 UNITS/3 ML INSULN.PEN. SQ SCH (20:49)
--- NOTE | 2018-06-25 20:57 | PDOC ---
Exam Note: Warner Note: Please also refer to the separate dictated note~for this date of service dictated separately.~Patient seen individually. Discussed the patient with Nursing staff reviewed the chart.~Reviewed interim history and current functioning. Reviewed vital signs,~Labs/ Radiology~and current medications noted below. Continue current treatment with the changes noted in the dictated addendum note Assessment: Vital Signs: Vital Signs Date Time Temp Pulse Resp B/P (MAP) Pulse Ox O2 Delivery O2 Flow Rate FiO2 06/25/18 20:43 73 93/60 06/25/18 16:38 97 Nasal Cannula 2.0 06/25/18 16:00 98.2 19 Labs: Laboratory Tests Test 06/25/18 17:05 06/25/18 19:06 Glucose (Fingerstick) 155 mg/dL (70-99) H 174 mg/dL (70-99) H Current Medications: Meds: Current Medications Acetaminophen (Tylenol) 650 mg PRN Q6HRS PRN PO PAIN / TEMP; Start 06/25/18 at 15:15; Stop 06/25/18 at 15:47; Status DC Multi-Ingredient Ointment (Analgesic [place]) 1 georgina PRN QID PRN TP MUSCLE PAIN; Start 06/25/18 at 15:15 Al Hydroxide/Mg Hydroxide (Mylanta Plus Xs) 15 ml PRN AFTMEALHC PRN PO DYSPEPSIA; Start 06/25/18 at 15:15 Magnesium Hydroxide (Milk Of Magnesia) 2,400 mg PRN QHS PRN PO CONSTIPATION; Start 06/25/18 at 15:15 Aspirin (Michelle Aspirin) 325 mg DAILY PO ; Start 06/26/18 at 09:00 Bupropion HCl (Wellbutrin) 100 mg BID@0900,1200 PO ; Start 06/26/18 at 09:00 Vitamin D (Vitamin D3) 3,000 unit DAILY PO ; Start 06/26/18 at 09:00 Clopidogrel Bisulfate (Plavix) 75 mg DAILY PO ; Start 06/26/18 at 09:00 Diltiazem HCl (Cardizem) 30 mg TID PO ; Start 06/25/18 at 21:00 Ferrous Sulfate (Feosol) 325 mg DAILY PO ; Start 06/26/18 at 09:00 Insulin Glargine (Lantus) 25 units QHS SQ Last administered on 06/25/18at 20:49; Start 06/25/18 at 21:00 Insulin Human Lispro (HumaLOG) 15 units TIDAC SQ Last administered on 06/25/18at 18:16; Start 06/25/18 at 16:30 Albuterol/ Ipratropium (Duoneb) 3 ml RTQID NEB Last administered on 06/25/18at 16 :38; Start 06/25/18 at 16:00 Nitroglycerin (Nitrostat) 0.4 mg PRN Q5MIN PRN SL CHEST PAIN; Start 06/25/18 at 15:15 Ondansetron HCl (Zofran Odt) 4 mg PRN Q8HRS PRN PO NAUSEA/VOMITING; Start at 16:00 Tamsulosin HCl (Flomax) 0.4 mg DAILY PO ; Start 06/26/18 at 09:00 Acetaminophen (Tylenol) 500 mg PRN Q8HRS PRN PO PAIN / TEMP; Start 06/25/18 at 15:45 Alprazolam (Xanax) 0.5 mg PRN Q8HRS PRN PO ANXIETY / AGITATION; Start 06/25/18 at 15:45 Atorvastatin Calcium (Lipitor) 40 mg QHS PO Last administered on 06/25/18at 20:43 ; Start 06/25/18 at 21:00 Budesonide (Pulmicort) 0.5 mg RTBID NEB ; Start 06/25/18 at 20:00 Carvedilol (Coreg) 3.125 mg BIDWMEALS PO ; Start 06/25/18 at 17:00 Divalproex Sodium (Depakote Er) 1,500 mg QHS PO Last administered on 06/25/18at 20:43; Start 06/25/18 at 21:00 Duloxetine HCl (Cymbalta) 20 mg DAILY PO ; Start 06/26/18 at 09:00 Duloxetine HCl (Cymbalta) 30 mg DAILY PO ; Start 06/26/18 at 09:00 Acetaminophen/ Hydrocodone Bitart (Lortab 5/325) 1 tab PRN Q4HRS PRN PO PAIN; Start 06/25/18 at 16:00 Lactobacillus Rhamnosus (Culturelle) 1 cap BID PO Last administered on at 20:37; Start 06/25/18 at 21:00 Pantoprazole Sodium (Protonix) 40 mg DAILYAC PO ; Start 06/26/18 at 07:30 Ranolazine (Ranexa) 1,000 mg BID PO ; Start 06/25/18 at 21:00 Active Scripts Active Reported NITROGLYCERIN SubLingual (Nitroglycerin) 0.4 Mg Tab.subl 0.4 Mg SL PRN Q5MIN PRN Cymbalta (Duloxetine Hcl) 20 Mg Capsule.dr 20 Mg PO DAILY Cardizem Tablet (Diltiazem Hcl) 30 Mg Tablet 30 Mg PO TID Tamsulosin Hcl 0.4 Mg Cap.er.24h 0.4 Mg PO DAILY Ranexa (Ranolazine) 500 Mg Tab.er.12h 1,000 Mg PO BID Protonix (Pantoprazole Sodium) 40 Mg Tablet.dr 40 Mg PO DAILYAC Ondansetron Odt (Ondansetron) 4 Mg Tab.rapdis 4 Mg PO PRN Q8HRS PRN Culturelle (Lactobacillus Rhamnosus Gg) 1 Each Capsule 1 Each PO BID Duoneb 0.5-3(2.5) Mg/3 Ml (Albuterol/Ipratropium) 3 Ml Ampul.neb 3 Ml NEB RTQID Humalog (Insulin Lispro) 100 Unit/1 Ml Insuln.pen 15 Unit SQ TIDAC Lantus Solostar (Insulin Glargine,Hum.rec.anlog) 100 Unit/1 Ml Insuln.pen 25 Unit SQ QHS Hydrocodone-Apap 5-325 (Hydrocodone Bit/Acetaminophen) 1 Each Tablet 1 Tab PO PRN Q4HRS PRN Clopidogrel (Clopidogrel Bisulfate) 75 Mg Tablet 75 Mg PO DAILY Carvedilol 3.125 Mg Tablet 3.125 Mg PO BIDWMEALS Budesonide 0.5 Mg/2 Ml Ampul.neb 0.5 Mg NEB RTBID Atorvastatin Calcium 40 Mg Tablet 40 Mg PO QHS Aspirin 325 Mg Tablet 325 Mg PO DAILY Alprazolam 0.5 Mg Tablet 0.5 Mg PO PRN Q8HRS PRN Acetaminophen 500 Mg Tablet 500 Mg PO PRN Q8HRS PRN Ferrous Sulfate 325 Mg Tablet 325 Mg PO DAILY Do not give within 2 hours of antacids or calcium products. Give with food. Divalproex Sodium Er (Divalproex Sodium) 500 Mg Tab.er.24h 1,500 Mg PO HS Give with food. Do NOT crush or chew. Vitamin D3 (Cholecalciferol (Vitamin D3)) 1,000 Unit Tablet 3,000 Unit PO DAILY Wellbutrin (Bupropion Hcl) 100 Mg Tablet 100 Mg PO BID@0900,1200 Cymbalta (Duloxetine Hcl) 30 Mg Capsule.dr 30 Mg PO DAILY I have reviewed the current psychotropics carefully including drug interactions. Risk benefit ratio favors no change other than as noted in my dictated progress note. Diagnosis: Problems: (1) Anxiety disorder (2) Depression (3) Bipolar 1 disorder (4) Difficulty controlling anger GRANT HYLTON MD Jun 25, 2018 20:57
[2018-06-25] MEDS: BUDESONIDE 0.5 MG/2 ML NEBU NEB SCH (21:42)
[2018-06-26] VITALS (8 sets, daily range): BP systolic 96–121; BP diastolic 57–75
[2018-06-26] MEDS: ALPRAZolam 0.5 MG TABLET PO PRN (03:26)
[2018-06-26] MEDS: NITROGLYCERIN SUBLINGUAL 0.4 MG BOTTLE OF 25. SL PRN (04:24)
[2018-06-26] MEDS: IPRATRPIUM/ALBUTEROL 0.5/2.5MG 3 ML NEBU. NEB SCH ×4 (04:54→20:01)
--- NOTE | 2018-06-26 07:39 | EKG ---
[address] [address] Test Date: 2018-06-26 Test Time: 04:41:03 Pat Name: BURTON RUSSELL Department: Room: [address] [place] [address] Gender: M [employer] Senior Associate: : 1945 Requested By: FAY CRAWFORD Order Number: [id number] Reading MD: Measurements Intervals [place] Rate: 81 P: 0 NE: 176 QRS: -6 QRSD: 122 T: 177 QT: 430 QTc: 500 Interpretive Statements SINUS RHYTHM LEFTWARD AXIS LOW LIMB LEAD VOLTAGE NO SPECIFIC ECG ABNORMALITIES RI6.01 Unconfirmed report No previous ECG available for comparison
[2018-06-26 07:55] LABS: BASO % 1 % (0-3); EOS % 2 % (0-3); HEMATOCRIT 27.6 % (39.0-53.0); LYMPH # 1.6 x10^3/uL (1.0-4.8); LYMPH % 50 % (24-48); MEAN CORPUSCULAR HEMOGLOBIN 30 pg (25-35); MEAN CORPUSCULAR HGB CONC 33 g/dL (31-37); MEAN CORPUSCULAR VOLUME 94 fL (79-100); MONO # 0.3 x10^3/uL (0.0-1.1); MONO % 11 % (0-9); NEUT # 1.2 x10^3uL (1.8-7.7); NEUT % 37 % (31-73); PLATELET COUNT 221 x10^3/uL (140-400); RED BLOOD COUNT 2.95 x10^6/uL (4.30-5.70); WHITE BLOOD COUNT 3.2 x10^3/uL (4.0-11.0)
[2018-06-26 08:10] LABS: VAL ACID 49 mcg/mL (50-100)
[2018-06-26 08:11] LABS: ALBUMIN 2.5 g/dL (3.4-5.0); ALBUMIN/GLOBULIN RATIO 0.7 (1.0-1.7); CALCIUM 8.8 mg/dL (8.5-10.1); CREATININE 0.8 mg/dL (0.7-1.3); GFR 94.5; MAGNESIUM 1.7 mg/dL (1.8-2.4); POTASSIUM 3.7 mmol/L (3.5-5.1); TOTAL BILIRUBIN 0.5 mg/dL (0.2-1.0); TOTAL PROTEIN 6.2 g/dL (6.4-8.2)
[2018-06-26] MEDS: dilTIAZem HCL 30 MG TABLET PO SCH ×3 (08:38→21:42)
[2018-06-26] MEDS: LACTOBACILLUS RHAMNOSUS GG 1 CAPSULE. PO SCH ×2 (08:38→19:15)
[2018-06-26] MEDS: CARVEDILOL 3.125 MG TABLET PO SCH ×2 (08:39→15:57)
[2018-06-26] MEDS: RANOLAZINE 500 MG TAB.ER.12H PO SCH ×2 (08:39→21:41)
[2018-06-26] MEDS: TAMSULOSIN 0.4 MG CAP.ER.24H. PO SCH (08:42)
[2018-06-26] MEDS: ASPIRIN 325 MG TABLET PO SCH (08:43)
[2018-06-26] MEDS: DULoxetine HCL 30 MG CAPSULE.DR PO SCH (08:43)
[2018-06-26] MEDS: buPROPion 100 MG TABLET PO SCH ×2 (08:43→15:57)
[2018-06-26] MEDS: PANTOPRAZOLE 40 MG TABLET. PO SCH (08:43)
[2018-06-26] MEDS: CLOPIDOGREL BISULFATE 75 MG TABLET PO SCH (08:43)
[2018-06-26] MEDS: FERROUS SULFATE 325 MG TABLET. PO SCH (08:44)
[2018-06-26] MEDS: CHOLECALCIFEROL (VITAMIN D3) 1,000 UNIT TABLET PO SCH (08:44)
[2018-06-26] MEDS: DULoxetine HCL 20 MG CAPSULE.DR PO SCH (08:44)
[2018-06-26] MEDS: INSULIN LISPRO 300 UNITS/3 ML INSULN.PEN. SQ SCH ×3 (08:45→17:45)
[2018-06-26] MEDS: BUDESONIDE 0.5 MG/2 ML NEBU NEB SCH ×2 (10:50→20:01)
--- NOTE | 2018-06-26 13:20 | HP ---
ADMIT DATE: 06/25/2018 PSYCHIATRIC ADMISSION HISTORY/EVALUATION This is a late entry, 06/25, covers elements not covered in my initial note. SUBJECTIVE: I met with the patient in the evening, reviewed records from [address] [place] [address], my past records as well. IDENTIFYING DATA: The patient is a 73-year-old male who returns back to us from [address] [place] [address] Medical/Surgical floor after he was transferred there from our unit on account of raised troponin, complains of chest pain while he was being stabilized for his bipolar disorder. I followed him on [address] [place] [address] from a medical standpoint. Medically, he has been stabilized, remains somewhat demanding, irritable, needy, impatient. He has been previously admitted for marked aggression, irritability after his bipolar medications were discontinued while he was in rehabilitation. These were reinstated on our unit, but at that time, there was a question of him having another UT and he was transferred to [address] [place] [address] and now back again for further stabilization. CHIEF COMPLAINT: "I am okay." HISTORY OF PRESENT ILLNESS: The patient has a history of bipolar disorder. He was residing at the nursing facility, had been in rehabilitation where his psychotropics were discontinued. He is getting extremely labile, angry, aggressive, paranoid, that is when he was initially sent to us. Currently, continues to be irritable, angry, labile, less so than before despite being back on his bipolar medications. He has had some sleep and appetite changes. No active suicidal or homicidal ideation. He has had some short-term memory deficits, but reasonably oriented. PAST PSYCHIATRIC HISTORY: As above. MEDICAL HISTORY: [id number] myocardial infarction, 06/15/2018; status post left hip fracture, 05/11/2018; atrial fibrillation; coronary artery disease; hypertension; status post UT; 5-vessel coronary artery bypass graft, 7 stents; diabetes mellitus; obesity; COPD; hyperlipidemia; gastric ulcer. Accu-Chek ____. DIET: Regular. Takes medications whole, ambulates in wheelchair. CODE STATUS: DNR. DRUG ALLERGIES: Negative. CURRENT PSYCHOTROPICS: Depakote ER 1500 mg at bedtime, Cymbalta 20 mg a day, Wellbutrin 100 mg twice a day, Xanax p.r.n. FAMILY HISTORY: Noncontributory. SOCIAL HISTORY: No alcohol, drug abuse, physical, sexual or elder abuse history is noted. Not known to be a perpetrator. MENTAL STATUS EXAMINATION: The patient was seen individually evening of 06/26. He is somewhat withdrawn, oriented to himself and situation. Speech has some latency, coherent, can be loud at times. Abstraction fair, computation impaired, language function intact, attention span short. Mood and affect somewhat withdrawn. No active suicidal or homicidal ideation. IMPRESSION: Bipolar 1 disorder, mixed with psychotic features, in partial remission; cognitive disorder, unspecified; anxiety disorder, unspecified. Rest as above. PLAN: Readmit to geropsychiatry unit at [facility]. I will see the patient daily individually from a psychiatric standpoint, medical followup per Dr. David/Dr. Valdez. Continue current psychotropics. Repeat valproic acid level, observe baseline, adjust as clinically indicated. MAN Rick HYLTON MD DR: GROVER/joselyn JOB#: [id number] / [id number]
[2018-06-26] MEDS: MAGNESIUM HYDROXIDE 2,400 MG/30 ML ORAL.SUSP. PO PRN (18:26)
[2018-06-26] MEDS: DIVALPROEX ER 500 MG TAB.ER.24H PO SCH (19:12)
[2018-06-26] MEDS: ATORVASTATIN CALCIUM 20 MG TABLET PO SCH (19:15)
[2018-06-26 20:07] LABS: THYROXINE 6.3 ug/dL (4.5-12.0)
[2018-06-26] MEDS: INSULIN GLARGINE 300 UNITS/3 ML INSULN.PEN. SQ SCH (20:46)
--- NOTE | 2018-06-26 20:48 | PDOC ---
Exam Note: Warner Note: Please also refer to the separate dictated note~for this date of service dictated separately.~Patient seen individually. Discussed the patient with Nursing staff reviewed the chart.~Reviewed interim history and current functioning. Reviewed vital signs,~Labs/ Radiology~and current medications noted below. Continue current treatment with the changes noted in the dictated addendum note Assessment: Vital Signs: Vital Signs Date Time Temp Pulse Resp B/P (MAP) Pulse Ox O2 Delivery O2 Flow Rate FiO2 06/26/18 20:00 98 Nasal Cannula 2.0 06/26/18 16:03 97.0 76 18 112/71 (85) I&O Intake and Output 06/26/18 07:00 Intake Total 360 ml Output Total 350 ml Balance 10 ml Intake Oral 360 ml Output Urine Total 350 ml Labs: Laboratory Tests Test 06/26/18 07:16 06/26/18 08:18 06/26/18 11:21 06/26/18 16:36 White Blood Count 3.2 x10^3/uL (4.0-11.0) L Red Blood Count 2.95 x10^6/uL (4.30-5.70) L Hemoglobin 9.0 g/dL (13.0-17.5) L Hematocrit 27.6 % (39.0-53.0) L Mean Corpuscular Volume 94 fL (79-100) Mean Corpuscular Hemoglobin 30 pg (25-35) Mean Corpuscular Hemoglobin Concent 33 g/dL (31-37) Red Cell Distribution Width 17.0 % (11.5-14.5) H Platelet Count 221 x10^3/uL (140-400) Neutrophils (%) (Auto) 37 % (31-73) Lymphocytes (%) (Auto) 50 % (24-48) H Monocytes (%) (Auto) 11 % (0-9) H Eosinophils (%) (Auto) 2 % (0-3) Basophils (%) (Auto) 1 % (0-3) Neutrophils # (Auto) 1.2 x10^3uL (1.8-7.7) L Lymphocytes # (Auto) 1.6 x10^3/uL (1.0-4.8) Monocytes # (Auto) 0.3 x10^3/uL (0.0-1.1) Eosinophils # (Auto) 0.0 x10^3/uL (0.0-0.7) Basophils # (Auto) 0.0 x10^3/uL (0.0-0.2) Sodium Level 140 mmol/L (136-145) Potassium Level 3.7 mmol/L (3.5-5.1) Chloride Level 104 mmol/L (98-107) Carbon Dioxide Level 26 mmol/L (21-32) Anion Gap 10 (6-14) Blood Urea Nitrogen 15 mg/dL (8-26) Creatinine 0.8 mg/dL (0.7-1.3) Estimated GFR (Cockcroft-Gault) 94.5 BUN/Creatinine Ratio 19 (6-20) Glucose Level 106 mg/dL (70-99) H Calcium Level 8.8 mg/dL (8.5-10.1) Magnesium Level 1.7 mg/dL (1.8-2.4) L Iron Level 37 ug/dL (65-175) L Total Iron Binding Capacity 241 ug/dL (250-450) L Iron Saturation 15 % (15-34) Total Bilirubin 0.5 mg/dL (0.2-1.0) Aspartate Amino Transferase (AST) 8 U/L (15-37) L Alanine Aminotransferase (ALT) 12 U/L (16-63) L Alkaline Phosphatase 45 U/L (46-116) L Creatine Kinase 23 U/L (39-308) L Creatine Kinase MB (Mass) 1.4 ng/mL (0.0-3.6) Creatine Kinase MB Relative Index 6.1 % (0-4) H Troponin I Quantitative 0.059 ng/mL (0-0.055) H [id number]-Type Natriuretic Peptide 4125 pg/mL (0-124) H Total Protein 6.2 g/dL (6.4-8.2) L Albumin 2.5 g/dL (3.4-5.0) L Albumin/Globulin Ratio 0.7 (1.0-1.7) L Vitamin B12 Level 486 pg/mL (247-911) 25-Hydroxy Vitamin D Total 29.7 ng/mL (30-100) L Thyroxine (T4) 6.3 ug/dL (4.5-12.0) Total Triiodothyronine (TT3) 76 ng/dL (71-180) Valproic Acid Level 49 mcg/mL (50-100) L Valproic Acid Last Dose Date 06/25/18 Valproic Acid Last Dose Time 2100 Treponema pallidum Antibody Nonreactive (Nonreactive) Glucose (Fingerstick) 109 mg/dL (70-99) H 129 mg/dL (70-99) H 160 mg/dL (70-99) H Test 06/26/18 19:43 Glucose (Fingerstick) 133 mg/dL (70-99) H Current Medications: Meds: Current Medications Acetaminophen (Tylenol) 650 mg PRN Q6HRS PRN PO PAIN / TEMP; Start 06/25/18 at 15:15; Stop 06/25/18 at 15:47; Status DC Multi-Ingredient Ointment (Analgesic [place]) 1 georgina PRN QID PRN TP MUSCLE PAIN; Start 06/25/18 at 15:15 Al Hydroxide/Mg Hydroxide (Mylanta Plus Xs) 15 ml PRN AFTMEALHC PRN PO DYSPEPSIA; Start 06/25/18 at 15:15 Magnesium Hydroxide (Milk Of Magnesia) 2,400 mg PRN QHS PRN PO CONSTIPATION Last administered on 06/26/18 18:26; Start 06/25/18 at 15:15 Aspirin (Michelle Aspirin) 325 mg DAILY PO Last administered on 06/26/18at 08:43; Start 06/26/18 at 09:00 Bupropion HCl (Wellbutrin) 100 mg BID@0900,1200 PO Last administered on at 15:57; Start 06/26/18 at 09:00 Vitamin D (Vitamin D3) 3,000 unit DAILY PO Last administered on 06/26/18at 08:44 ; Start 06/26/18 at 09:00 Clopidogrel Bisulfate (Plavix) 75 mg DAILY PO Last administered on 06/26/18at 08: 43; Start 06/26/18 at 09:00 Diltiazem HCl (Cardizem) 30 mg TID PO Last administered on 06/26/18at 08:38; Start 06/25/18 at 21:00 Ferrous Sulfate (Feosol) 325 mg DAILY PO Last administered on 06/26/18at 08:44; Start 06/26/18 at 09:00 Insulin Glargine (Lantus) 25 units QHS SQ Last administered on 06/26/18 20:46; Start 06/25/18 at 21:00 Insulin Human Lispro (HumaLOG) 15 units TIDAC SQ Last administered on 06/26/18 17:45; Start 06/25/18 at 16:30 Albuterol/ Ipratropium (Duoneb) 3 ml RTQID NEB Last administered on 06/26/18 20 :01; Start 06/25/18 at 16:00 Nitroglycerin (Nitrostat) 0.4 mg PRN Q5MIN PRN SL CHEST PAIN Last administered on 06/26/18 04:24; Start 06/25/18 at 15:15 Ondansetron HCl (Zofran Odt) 4 mg PRN Q8HRS PRN PO NAUSEA/VOMITING; Start at 16:00 Tamsulosin HCl (Flomax) 0.4 mg DAILY PO Last administered on 06/26/18 08:42; Start 06/26/18 at 09:00 Acetaminophen (Tylenol) 500 mg PRN Q8HRS PRN PO PAIN / TEMP Last administered on 06/26/18 03:26; Start 06/25/18 at 15:45 Alprazolam (Xanax) 0.5 mg PRN Q8HRS PRN PO ANXIETY / AGITATION Last administered on 06/26/18 03:26; Start 06/25/18 at 15:45 Atorvastatin Calcium (Lipitor) 40 mg QHS PO Last administered on 06/26/18 19:15 ; Start 06/25/18 at 21:00 Budesonide (Pulmicort) 0.5 mg RTBID NEB Last administered on 06/26/18 20:01; Start 06/25/18 at 20:00 Carvedilol (Coreg) 3.125 mg BIDWMEALS PO Last administered on 06/26/18 15:57; Start 06/25/18 at 17:00 Divalproex Sodium (Depakote Er) 1,500 mg QHS PO Last administered on 06/26/18 19:12; Start 06/25/18 at 21:00 Duloxetine HCl (Cymbalta) 20 mg DAILY PO Last administered on 06/26/18 08:44; Start 06/26/18 at 09:00 Duloxetine HCl (Cymbalta) 30 mg DAILY PO Last administered on 06/26/18at 08:43; Start 06/26/18 at 09:00 Acetaminophen/ Hydrocodone Bitart (Lortab 5/325) 1 tab PRN Q4HRS PRN PO PAIN; Start 06/25/18 at 16:00 Lactobacillus Rhamnosus (Culturelle) 1 cap BID PO Last administered on at 19:15; Start 06/25/18 at 21:00 Pantoprazole Sodium (Protonix) 40 mg DAILYAC PO Last administered on 06/26/18at 08:43; Start 06/26/18 at 07:30 Ranolazine (Ranexa) 1,000 mg BID PO Last administered on 06/26/18at 08:39; Start 06/25/18 at 21:00 Active Scripts Active Reported NITROGLYCERIN SubLingual (Nitroglycerin) 0.4 Mg Tab.subl 0.4 Mg SL PRN Q5MIN PRN Cymbalta (Duloxetine Hcl) 20 Mg Capsule.dr 20 Mg PO DAILY Cardizem Tablet (Diltiazem Hcl) 30 Mg Tablet 30 Mg PO TID Tamsulosin Hcl 0.4 Mg Cap.er.24h 0.4 Mg PO DAILY Ranexa (Ranolazine) 500 Mg Tab.er.12h 1,000 Mg PO BID Protonix (Pantoprazole Sodium) 40 Mg Tablet.dr 40 Mg PO DAILYAC Ondansetron Odt (Ondansetron) 4 Mg Tab.rapdis 4 Mg PO PRN Q8HRS PRN Culturelle (Lactobacillus Rhamnosus Gg) 1 Each Capsule 1 Each PO BID Duoneb 0.5-3(2.5) Mg/3 Ml (Albuterol/Ipratropium) 3 Ml Ampul.neb 3 Ml NEB RTQID Humalog (Insulin Lispro) 100 Unit/1 Ml Insuln.pen 15 Unit SQ TIDAC Lantus Solostar (Insulin Glargine,Hum.rec.anlog) 100 Unit/1 Ml Insuln.pen 25 Unit SQ QHS Hydrocodone-Apap 5-325 (Hydrocodone Bit/Acetaminophen) 1 Each Tablet 1 Tab PO PRN Q4HRS PRN Clopidogrel (Clopidogrel Bisulfate) 75 Mg Tablet 75 Mg PO DAILY Carvedilol 3.125 Mg Tablet 3.125 Mg PO BIDWMEALS Budesonide 0.5 Mg/2 Ml Ampul.neb 0.5 Mg NEB RTBID Atorvastatin Calcium 40 Mg Tablet 40 Mg PO QHS Aspirin 325 Mg Tablet 325 Mg PO DAILY Alprazolam 0.5 Mg Tablet 0.5 Mg PO PRN Q8HRS PRN Acetaminophen 500 Mg Tablet 500 Mg PO PRN Q8HRS PRN Ferrous Sulfate 325 Mg Tablet 325 Mg PO DAILY Do not give within 2 hours of antacids or calcium products. Give with food. Divalproex Sodium Er (Divalproex Sodium) 500 Mg Tab.er.24h 1,500 Mg PO HS Give with food. Do NOT crush or chew. Vitamin D3 (Cholecalciferol (Vitamin D3)) 1,000 Unit Tablet 3,000 Unit PO DAILY Wellbutrin (Bupropion Hcl) 100 Mg Tablet 100 Mg PO BID@0900,1200 Cymbalta (Duloxetine Hcl) 30 Mg Capsule. 30 Mg PO DAILY I have reviewed the current psychotropics carefully including drug interactions. Risk benefit ratio favors no change other than as noted in my dictated progress note. Diagnosis: Problems: (1) Anxiety disorder (2) Depression (3) Bipolar 1 disorder (4) Difficulty controlling anger GRANT HYLTON MD Jun 26, 2018 20:48
--- NOTE | 2018-06-27 00:15 | CONS ---
DATE OF CONSULTATION: 06/26/2018 REASON FOR CONSULTATION: Medical management. HISTORY OF PRESENT ILLNESS: The patient was originally admitted as a transfer from [facility] on 06/19/2018. He apparently had a hip fracture, which was surgically treated at [facility] and was transferred to rehab, where apparently his Depakote, Cymbalta, and Wellbutrin were discontinued. The patient states he has had worsening mood swings since then and at [facility], he was increasingly agitated, anxious, paranoid, and combative with staff, behaviors that were deemed dangerous, unmanageable, and was admitted to [facility] for inpatient psychiatric stabilization. While here, he started complaining of chest pain and was transferred to [address] [place] [address] where he has had 2 more sets of cardiac enzymes and we did consult the Cardiology team. Apparently, the patient has had recent non-ST segment elevation myocardial infarction and he has known 3-vessel coronary artery disease with prior CABG and patent SKELTON to left anterior descending and patent saphenous graft to obtuse marginal; however, has occluded graft to his right coronary artery with collaterals from left anterior descending. His troponin on 06/17/2018 were high at 0.45 and continued to be slightly on the higher side, and the Cardiology team recommended to optimize his medical management in the form of aspirin, Plavix, statin, beta blockers, and his Ranexa was increased to 1000 mg. He remained hemodynamically stable, has had no further episode of chest pain, was referred back to [facility]. He apparently did complain of chest pain and shortness of breath last night, as his blood pressure was low and they have held his Ranexa. He apparently was extremely lethargic this morning complaining that he is tired, although when I saw him coming out from the dining room, he seemed to be more awake, alert. Denied anymore episodes of chest pain or shortness of breath and he claimed that he has been walking with a walker. PAST MEDICAL HISTORY: Significant for atrial fibrillation, coronary artery disease, hypertension, myocardial infarction, peripheral vascular disease, bronchial asthma, morbid obesity, obstructive sleep apnea, transient ischemic attack, peptic ulcer disease, anemia, bipolar disorder, depression, osteoarthritis, hearing loss, urinary retention requiring indwelling Rangel catheter and frequent urinary tract infection. PAST SURGICAL HISTORY: Significant for left hip fracture, status post open reduction and internal fixation, coronary artery bypass graft surgery, bilateral cataract extraction, PCI with stent deployment. FAMILY HISTORY: Positive for hypertension. SOCIAL HISTORY: He apparently was residing at [facility]. He ambulates with a walker. He does not smoke, drink alcohol, or use any recreational drugs. His daughter is his DPOA. REVIEW OF SYSTEMS: As per history of present illness. PHYSICAL EXAMINATION: GENERAL: When I examined him this afternoon, he was sitting in his recliner in no apparent respiratory distress. He was pale, no jaundice, cyanosis, or thyromegaly. No jugular venous distension. No limb edema. VITAL SIGNS: His heart rate was 82. His blood pressure was 121/72, temperature was 97.5, respiratory rate was 16, and oxygen saturation was 97% on room air. HEAD, EYES, EARS, NOSE, AND THROAT: Showed normocephalic, atraumatic. NECK: Supple. HEART: Showed normal first and second heart sounds. No gallop, rub, or murmur. CHEST: Clear to auscultation. No crepitation or rhonchi. ABDOMEN: Markedly distended, soft, nontender. NEUROLOGIC: He is awake, alert, responding appropriately. All cranial nerves intact. EXTREMITIES: He moves extremities without difficulty. He ambulates with a walker. LABORATORY DATA: As of this morning showed a white cell count of 3200, hemoglobin 9, hematocrit 27, MCV 94, and platelet count 121,000. His chemistry showed a serum sodium 140, potassium 3.7, his chloride 104, bicarbonate 26, anion gap of 10, BUN 15, creatinine 0.8, estimated GFR was 95 mL per minute, his glucose 106, calcium was 8.8, magnesium was 1.7. His total bilirubin, AST, ALT, alkaline phosphatase were normal. His troponin continued to be slightly elevated at 0.059. His beta natriuretic peptide was 4125. Total protein was 6.2, albumin 2.5. His valproic acid was 49 mcg per mL. IMPRESSION: In summary, the patient has returned from [address] [place] [address] to continue with inpatient psychiatric stabilization as he was originally admitted with worsening mood swings, increasing agitation, anxious, paranoid, and combative. From a medical point of view, he did complain of a episode of chest pain yesterday and although by the time I saw him, he has no further chest pain. His blood pressure seemed to be stable. If he continues to have chest pain, I will probably discontinue his diltiazem and start him on Imdur and consider digoxin to control the heart rate. Thank you, Dr. Gutierrez for allowing me to participate in the care of this patient. FAY CRAWFORD MD DR: LUISA/joselyn JOB#: [id number] / [id number]
[2018-06-27] MEDS: IPRATRPIUM/ALBUTEROL 0.5/2.5MG 3 ML NEBU. NEB SCH ×4 (05:15→20:05)
[2018-06-27 06:08] VITALS: BP 116/77
[2018-06-27] MEDS: DULoxetine HCL 20 MG CAPSULE.DR PO SCH (08:08)
[2018-06-27] MEDS: ASPIRIN 325 MG TABLET PO SCH (08:08)
[2018-06-27] MEDS: FERROUS SULFATE 325 MG TABLET. PO SCH (08:09)
[2018-06-27] MEDS: CARVEDILOL 3.125 MG TABLET PO SCH ×2 (08:09→18:11)
[2018-06-27] MEDS: buPROPion 100 MG TABLET PO SCH ×2 (08:09→14:26)
[2018-06-27] MEDS: CLOPIDOGREL BISULFATE 75 MG TABLET PO SCH (08:10)
[2018-06-27] MEDS: RANOLAZINE 500 MG TAB.ER.12H PO SCH ×2 (08:10→20:19)
[2018-06-27] MEDS: DULoxetine HCL 30 MG CAPSULE.DR PO SCH (08:11)
[2018-06-27] MEDS: PANTOPRAZOLE 40 MG TABLET. PO SCH (08:11)
[2018-06-27] MEDS: LACTOBACILLUS RHAMNOSUS GG 1 CAPSULE. PO SCH ×2 (08:11→20:17)
[2018-06-27] MEDS: TAMSULOSIN 0.4 MG CAP.ER.24H. PO SCH (08:11)
[2018-06-27] MEDS: dilTIAZem HCL 30 MG TABLET PO SCH ×3 (08:11→20:18)
[2018-06-27] MEDS: CHOLECALCIFEROL (VITAMIN D3) 1,000 UNIT TABLET PO SCH (08:11)
[2018-06-27] MEDS: INSULIN LISPRO 300 UNITS/3 ML INSULN.PEN. SQ SCH ×3 (08:13→16:30)
[2018-06-27] MEDS: BUDESONIDE 0.5 MG/2 ML NEBU NEB SCH ×2 (10:35→20:05)
[2018-06-27] MEDS: ALPRAZolam 0.5 MG TABLET PO PRN (14:26)
[2018-06-27 16:19] VITALS: BP 114/67
[2018-06-27] MEDS: ATORVASTATIN CALCIUM 20 MG TABLET PO SCH (20:17)
[2018-06-27] MEDS: DIVALPROEX ER 500 MG TAB.ER.24H PO SCH (20:18)
[2018-06-27] MEDS: INSULIN GLARGINE 300 UNITS/3 ML INSULN.PEN. SQ SCH (20:20)
[2018-06-28] MEDS: IPRATRPIUM/ALBUTEROL 0.5/2.5MG 3 ML NEBU. NEB SCH ×4 (05:19→23:16)
[2018-06-28 05:58] VITALS: BP 103/63
[2018-06-28] MEDS: buPROPion 100 MG TABLET PO SCH ×2 (08:05→15:03)
[2018-06-28] MEDS: TAMSULOSIN 0.4 MG CAP.ER.24H. PO SCH (08:05)
[2018-06-28] MEDS: CHOLECALCIFEROL (VITAMIN D3) 1,000 UNIT TABLET PO SCH (08:06)
[2018-06-28] MEDS: DULoxetine HCL 30 MG CAPSULE.DR PO SCH (08:06)
[2018-06-28] MEDS: LACTOBACILLUS RHAMNOSUS GG 1 CAPSULE. PO SCH ×2 (08:06→19:44)
[2018-06-28] MEDS: RANOLAZINE 500 MG TAB.ER.12H PO SCH ×2 (08:06→19:47)
[2018-06-28] MEDS: ASPIRIN 325 MG TABLET PO SCH (08:07)
[2018-06-28] MEDS: PANTOPRAZOLE 40 MG TABLET. PO SCH (08:07)
[2018-06-28] MEDS: DULoxetine HCL 20 MG CAPSULE.DR PO SCH (08:07)
[2018-06-28] MEDS: FERROUS SULFATE 325 MG TABLET. PO SCH (08:07)
[2018-06-28] MEDS: INSULIN LISPRO 300 UNITS/3 ML INSULN.PEN. SQ SCH ×3 (08:09→17:39)
[2018-06-28] MEDS: CLOPIDOGREL BISULFATE 75 MG TABLET PO SCH (08:10)
[2018-06-28] MEDS: dilTIAZem HCL 30 MG TABLET PO SCH ×3 (08:10→19:44)
[2018-06-28] MEDS: CARVEDILOL 3.125 MG TABLET PO SCH ×2 (08:11→17:38)
[2018-06-28] MEDS: MAGNESIUM HYDROXIDE 2,400 MG/30 ML ORAL.SUSP. PO PRN (08:15)
[2018-06-28] MEDS: BUDESONIDE 0.5 MG/2 ML NEBU NEB SCH ×2 (10:34→23:16)
[2018-06-28 16:33] VITALS: BP 100/56
[2018-06-28] MEDS: DIVALPROEX ER 500 MG TAB.ER.24H PO SCH (19:43)
[2018-06-28] MEDS: ATORVASTATIN CALCIUM 20 MG TABLET PO SCH (19:44)
[2018-06-28] MEDS: INSULIN GLARGINE 300 UNITS/3 ML INSULN.PEN. SQ SCH (19:50)
--- NOTE | 2018-06-28 20:09 | PDOC ---
Exam Note: Warner Note: Late entry for date of service June. Please also refer to the separate dictated note~for this date of service dictated separately.~Patient seen individually. Discussed the patient with Nursing staff reviewed the chart.~ Reviewed interim history and current functioning. Reviewed vital signs,~Labs/ Radiology~and current medications noted below. Continue current treatment with the changes noted in the dictated addendum note Assessment: Vital Signs: VS - Last 72 Hours, by Label Date Time Temp Pulse Resp B/P (MAP) Pulse Ox O2 Delivery O2 Flow Rate FiO2 06/28/18 19:47 70 100/56 06/28/18 19:44 70 100/56 06/28/18 17:38 70 100/56 06/28/18 16:33 98.1 70 20 100/56 (71) 96 Room Air 06/28/18 16:22 95 Room Air 06/28/18 15:04 76 117/61 06/28/18 10:41 96 Room Air 06/28/18 10:36 96 Room Air 06/28/18 08:11 76 117/61 06/28/18 08:10 76 117/61 06/28/18 08:06 69 103/63 06/28/18 05:58 96.8 69 20 103/63 (76) 94 06/28/18 05:15 96 Room Air 06/27/18 20:19 70 114/67 06/27/18 20:18 70 114/67 06/27/18 20:05 98 Nasal Cannula 2.0 06/27/18 18:11 70 114/67 06/27/18 16:19 97.3 70 20 114/67 (83) 94 06/27/18 16:16 97 Room Air 2.0 06/27/18 14:27 67 116/77 06/27/18 10:40 95 Room Air 0.0 06/27/18 10:37 95 Room Air 0.0 06/27/18 08:11 67 116/77 06/27/18 08:10 67 116/77 06/27/18 08:09 67 116/77 06/27/18 06:08 97.6 67 20 116/77 (90) 96 Nasal Cannula 2.0 06/27/18 05:18 97 Nasal Cannula 2.0 06/26/18 21:42 64 120/64 06/26/18 21:41 80 120/64 06/26/18 20:00 98 Nasal Cannula 2.0 06/26/18 16:33 98 Room Air 06/26/18 16:03 97.0 76 18 112/71 (85) 100 06/26/18 15:57 76 112/71 06/26/18 14:00 56 103/57 06/26/18 13:51 58 103/57 (72) 06/26/18 10:51 97 Room Air 06/26/18 10:50 97 Room Air 06/26/18 08:39 82 121/72 06/26/18 08:39 82 121/72 06/26/18 08:38 82 121/72 06/26/18 06:02 97.5 82 16 121/72 (88) 95 06/26/18 05:00 81 20 121/75 (90) 96 Nasal Cannula 2.0 06/26/18 04:30 81 20 96/59 (71) 91 Nasal Cannula 2.0 06/26/18 04:24 84 117/72 06/26/18 04:20 84 22 117/72 (87) 97 Nasal Cannula 2.0 06/26/18 03:13 74 22 106/63 (77) 97 Nasal Cannula 2.0 06/26/18 00:10 80 112/66 (81) 96 06/25/18 21:25 98 Nasal Cannula 2.0 06/25/18 20:43 73 93/60 06/25/18 20:43 73 93/60 Vital Signs Date Time Temp Pulse Resp B/P (MAP) Pulse Ox O2 Delivery O2 Flow Rate FiO2 06/28/18 19:47 70 100/56 06/28/18 16:33 98.1 20 96 Room Air 06/27/18 20:05 2.0 I&O Intake and Output 06/28/18 07:00 Intake Total 480 ml Output Total 700 ml Balance -220 ml Intake Oral 480 ml Output Urine Total 700 ml Labs: Laboratory Tests Test 06/28/18 07:36 06/28/18 11:44 06/28/18 17:01 06/28/18 19:04 Glucose (Fingerstick) 86 mg/dL (70-99) 165 mg/dL (70-99) H 201 mg/dL (70-99) H 190 mg/dL (70-99) H Current Medications: Meds: Current Medications Acetaminophen (Tylenol) 650 mg PRN Q6HRS PRN PO PAIN / TEMP; Start 06/25/18 at 15:15; Stop 06/25/18 at 15:47; Status DC Multi-Ingredient Ointment (Analgesic [place]) 1 georgina PRN QID PRN TP MUSCLE PAIN; Start 06/25/18 at 15:15 Al Hydroxide/Mg Hydroxide (Mylanta Plus Xs) 15 ml PRN AFTMEALHC PRN PO DYSPEPSIA; Start 06/25/18 at 15:15 Magnesium Hydroxide (Milk Of Magnesia) 2,400 mg PRN QHS PRN PO CONSTIPATION Last administered on 06/28/18 08:15; Start 06/25/18 at 15:15 Aspirin (Michelle Aspirin) 325 mg DAILY PO Last administered on 06/28/18 08:07; Start 06/26/18 at 09:00 Bupropion HCl (Wellbutrin) 100 mg BID@0900,1200 PO Last administered on 15:03; Start 06/26/18 at 09:00 Vitamin D (Vitamin D3) 3,000 unit DAILY PO Last administered on 06/28/18 08:06 ; Start 06/26/18 at 09:00 Clopidogrel Bisulfate (Plavix) 75 mg DAILY PO Last administered on 06/28/18 08: 10; Start 06/26/18 at 09:00 Diltiazem HCl (Cardizem) 30 mg TID PO Last administered on 06/28/18 19:44; Start 06/25/18 at 21:00 Ferrous Sulfate (Feosol) 325 mg DAILY PO Last administered on 06/28/18 08:07; Start 06/26/18 at 09:00 Insulin Glargine (Lantus) 25 units QHS SQ Last administered on 06/28/18 19:50; Start 06/25/18 at 21:00 Insulin Human Lispro (HumaLOG) 15 units TIDAC SQ Last administered on 06/28/18 17:39; Start 06/25/18 at 16:30 Albuterol/ Ipratropium (Duoneb) 3 ml RTQID NEB Last administered on 06/28/18 16 :21; Start 06/25/18 at 16:00 Nitroglycerin (Nitrostat) 0.4 mg PRN Q5MIN PRN SL CHEST PAIN Last administered on 06/26/18 04:24; Start 06/25/18 at 15:15 Ondansetron HCl (Zofran Odt) 4 mg PRN Q8HRS PRN PO NAUSEA/VOMITING; Start at 16:00 Tamsulosin HCl (Flomax) 0.4 mg DAILY PO Last administered on 06/28/18 08:05; Start 06/26/18 at 09:00 Acetaminophen (Tylenol) 500 mg PRN Q8HRS PRN PO PAIN / TEMP Last administered on 06/26/18 03:26; Start 06/25/18 at 15:45 Alprazolam (Xanax) 0.5 mg PRN Q8HRS PRN PO ANXIETY / AGITATION Last administered on 06/27/18 14:26; Start 06/25/18 at 15:45 Atorvastatin Calcium (Lipitor) 40 mg QHS PO Last administered on 06/28/18 19:44 ; Start 06/25/18 at 21:00 Budesonide (Pulmicort) 0.5 mg RTBID NEB Last administered on 06/28/18 10:34; Start 06/25/18 at 20:00 Carvedilol (Coreg) 3.125 mg BIDWMEALS PO Last administered on 06/28/18 17:38; Start 06/25/18 at 17:00 Divalproex Sodium (Depakote Er) 1,500 mg QHS PO Last administered on 06/28/18 19:43; Start 06/25/18 at 21:00 Duloxetine HCl (Cymbalta) 20 mg DAILY PO Last administered on 06/28/18 08:07; Start 06/26/18 at 09:00 Duloxetine HCl (Cymbalta) 30 mg DAILY PO Last administered on 06/28/18 08:06; Start 06/26/18 at 09:00 Acetaminophen/ Hydrocodone Bitart (Lortab 5/325) 1 tab PRN Q4HRS PRN PO PAIN; Start 06/25/18 at 16:00 Lactobacillus Rhamnosus (Culturelle) 1 cap BID PO Last administered on 19:44; Start 06/25/18 at 21:00 Pantoprazole Sodium (Protonix) 40 mg DAILYAC PO Last administered on 06/28/18at 08:07; Start 06/26/18 at 07:30 Ranolazine (Ranexa) 1,000 mg BID PO Last administered on 06/28/18at 19:47; Start 06/25/18 at 21:00 Senna/Docusate Sodium (Senna Plus) 1 tab PRN BID PRN PO CONSTIPATION; Start 06/28/18 at 19:00 Active Scripts Active Reported NITROGLYCERIN SubLingual (Nitroglycerin) 0.4 Mg Tab.subl 0.4 Mg SL PRN Q5MIN PRN Cymbalta (Duloxetine Hcl) 20 Mg Capsule.dr 20 Mg PO DAILY Cardizem Tablet (Diltiazem Hcl) 30 Mg Tablet 30 Mg PO TID Tamsulosin Hcl 0.4 Mg Cap.er.24h 0.4 Mg PO DAILY Ranexa (Ranolazine) 500 Mg Tab.er.12h 1,000 Mg PO BID Protonix (Pantoprazole Sodium) 40 Mg Tablet.dr 40 Mg PO DAILYAC Ondansetron Odt (Ondansetron) 4 Mg Tab.rapdis 4 Mg PO PRN Q8HRS PRN Culturelle (Lactobacillus Rhamnosus Gg) 1 Each Capsule 1 Each PO BID Duoneb 0.5-3(2.5) Mg/3 Ml (Albuterol/Ipratropium) 3 Ml Ampul.neb 3 Ml NEB RTQID Humalog (Insulin Lispro) 100 Unit/1 Ml Insuln.pen 15 Unit SQ TIDAC Lantus Solostar (Insulin Glargine,Hum.rec.anlog) 100 Unit/1 Ml Insuln.pen 25 Unit SQ QHS Hydrocodone-Apap 5-325 (Hydrocodone Bit/Acetaminophen) 1 Each Tablet 1 Tab PO PRN Q4HRS PRN Clopidogrel (Clopidogrel Bisulfate) 75 Mg Tablet 75 Mg PO DAILY Carvedilol 3.125 Mg Tablet 3.125 Mg PO BIDWMEALS Budesonide 0.5 Mg/2 Ml Ampul.neb 0.5 Mg NEB RTBID Atorvastatin Calcium 40 Mg Tablet 40 Mg PO QHS Aspirin 325 Mg Tablet 325 Mg PO DAILY Alprazolam 0.5 Mg Tablet 0.5 Mg PO PRN Q8HRS PRN Acetaminophen 500 Mg Tablet 500 Mg PO PRN Q8HRS PRN Ferrous Sulfate 325 Mg Tablet 325 Mg PO DAILY Do not give within 2 hours of antacids or calcium products. Give with food. Divalproex Sodium Er (Divalproex Sodium) 500 Mg Tab.er.24h 1,500 Mg PO HS Give with food. Do NOT crush or chew. Vitamin D3 (Cholecalciferol (Vitamin D3)) 1,000 Unit Tablet 3,000 Unit PO DAILY Wellbutrin (Bupropion Hcl) 100 Mg Tablet 100 Mg PO BID@0900,1200 Cymbalta (Duloxetine Hcl) 30 Mg Capsule.dr 30 Mg PO DAILY I have reviewed the current psychotropics carefully including drug interactions. Risk benefit ratio favors no change other than as noted in my dictated progress note. Diagnosis: Problems: (1) Anxiety disorder (2) Depression (3) Bipolar 1 disorder (4) Difficulty controlling anger GRANT HYLTON MD Jun 28, 2018 20:08
--- NOTE | 2018-06-28 20:09 | PDOC ---
Exam Note: Warner Note: Please also refer to the separate dictated note~for this date of service dictated separately.~Patient seen individually. Discussed the patient with Nursing staff reviewed the chart.~Reviewed interim history and current functioning. Reviewed vital signs,~Labs/ Radiology~and current medications noted below. Continue current treatment with the changes noted in the dictated addendum note Assessment: Vital Signs: Vital Signs Date Time Temp Pulse Resp B/P (MAP) Pulse Ox O2 Delivery O2 Flow Rate FiO2 06/28/18 19:47 70 100/56 06/28/18 16:33 98.1 20 96 Room Air 06/27/18 20:05 2.0 I&O Intake and Output 06/28/18 07:00 Intake Total 480 ml Output Total 700 ml Balance -220 ml Intake Oral 480 ml Output Urine Total 700 ml Labs: Laboratory Tests Test 06/28/18 07:36 06/28/18 11:44 06/28/18 17:01 06/28/18 19:04 Glucose (Fingerstick) 86 mg/dL (70-99) 165 mg/dL (70-99) H 201 mg/dL (70-99) H 190 mg/dL (70-99) H Current Medications: Meds: Current Medications Acetaminophen (Tylenol) 650 mg PRN Q6HRS PRN PO PAIN / TEMP; Start 06/25/18 at 15:15; Stop 06/25/18 at 15:47; Status DC Multi-Ingredient Ointment (Analgesic [place]) 1 georgina PRN QID PRN TP MUSCLE PAIN; Start 06/25/18 at 15:15 Al Hydroxide/Mg Hydroxide (Mylanta Plus Xs) 15 ml PRN AFTMEALHC PRN PO DYSPEPSIA; Start 06/25/18 at 15:15 Magnesium Hydroxide (Milk Of Magnesia) 2,400 mg PRN QHS PRN PO CONSTIPATION Last administered on 06/28/18at 08:15; Start 06/25/18 at 15:15 Aspirin (Michelle Aspirin) 325 mg DAILY PO Last administered on 06/28/18at 08:07; Start 06/26/18 at 09:00 Bupropion HCl (Wellbutrin) 100 mg BID@0900,1200 PO Last administered on at 15:03; Start 06/26/18 at 09:00 Vitamin D (Vitamin D3) 3,000 unit DAILY PO Last administered on 06/28/18 08:06 ; Start 06/26/18 at 09:00 Clopidogrel Bisulfate (Plavix) 75 mg DAILY PO Last administered on 06/28/18 08: 10; Start 06/26/18 at 09:00 Diltiazem HCl (Cardizem) 30 mg TID PO Last administered on 06/28/18 19:44; Start 06/25/18 at 21:00 Ferrous Sulfate (Feosol) 325 mg DAILY PO Last administered on 06/28/18 08:07; Start 06/26/18 at 09:00 Insulin Glargine (Lantus) 25 units QHS SQ Last administered on 06/28/18 19:50; Start 06/25/18 at 21:00 Insulin Human Lispro (HumaLOG) 15 units TIDAC SQ Last administered on 06/28/18 17:39; Start 06/25/18 at 16:30 Albuterol/ Ipratropium (Duoneb) 3 ml RTQID NEB Last administered on 06/28/18 16 :21; Start 06/25/18 at 16:00 Nitroglycerin (Nitrostat) 0.4 mg PRN Q5MIN PRN SL CHEST PAIN Last administered on 06/26/18 04:24; Start 06/25/18 at 15:15 Ondansetron HCl (Zofran Odt) 4 mg PRN Q8HRS PRN PO NAUSEA/VOMITING; Start at 16:00 Tamsulosin HCl (Flomax) 0.4 mg DAILY PO Last administered on 06/28/18 08:05; Start 06/26/18 at 09:00 Acetaminophen (Tylenol) 500 mg PRN Q8HRS PRN PO PAIN / TEMP Last administered on 06/26/18 03:26; Start 06/25/18 at 15:45 Alprazolam (Xanax) 0.5 mg PRN Q8HRS PRN PO ANXIETY / AGITATION Last administered on 06/27/18 14:26; Start 06/25/18 at 15:45 Atorvastatin Calcium (Lipitor) 40 mg QHS PO Last administered on 06/28/18 19:44 ; Start 06/25/18 at 21:00 Budesonide (Pulmicort) 0.5 mg RTBID NEB Last administered on 06/28/18 10:34; Start 06/25/18 at 20:00 Carvedilol (Coreg) 3.125 mg BIDWMEALS PO Last administered on 06/28/18 17:38; Start 06/25/18 at 17:00 Divalproex Sodium (Depakote Er) 1,500 mg QHS PO Last administered on 06/28/18 19:43; Start 06/25/18 at 21:00 Duloxetine HCl (Cymbalta) 20 mg DAILY PO Last administered on 06/28/18 08:07; Start 06/26/18 at 09:00 Duloxetine HCl (Cymbalta) 30 mg DAILY PO Last administered on 06/28/18 08:06; Start 06/26/18 at 09:00 Acetaminophen/ Hydrocodone Bitart (Lortab 5/325) 1 tab PRN Q4HRS PRN PO PAIN; Start 06/25/18 at 16:00 Lactobacillus Rhamnosus (Culturelle) 1 cap BID PO Last administered on 19:44; Start 06/25/18 at 21:00 Pantoprazole Sodium (Protonix) 40 mg DAILYAC PO Last administered on 06/28/18 08:07; Start 06/26/18 at 07:30 Ranolazine (Ranexa) 1,000 mg BID PO Last administered on 06/28/18 19:47; Start 06/25/18 at 21:00 Senna/Docusate Sodium (Senna Plus) 1 tab PRN BID PRN PO CONSTIPATION; Start 06/28/18 at 19:00 Active Scripts Active Reported NITROGLYCERIN SubLingual (Nitroglycerin) 0.4 Mg Tab.subl 0.4 Mg SL PRN Q5MIN PRN Cymbalta (Duloxetine Hcl) 20 Mg Capsule.dr 20 Mg PO DAILY Cardizem Tablet (Diltiazem Hcl) 30 Mg Tablet 30 Mg PO TID Tamsulosin Hcl 0.4 Mg Cap.er.24h 0.4 Mg PO DAILY Ranexa (Ranolazine) 500 Mg Tab.er.12h 1,000 Mg PO BID Protonix (Pantoprazole Sodium) 40 Mg Tablet.dr 40 Mg PO DAILYAC Ondansetron Odt (Ondansetron) 4 Mg Tab.rapdis 4 Mg PO PRN Q8HRS PRN Culturelle (Lactobacillus Rhamnosus Gg) 1 Each Capsule 1 Each PO BID Duoneb 0.5-3(2.5) Mg/3 Ml (Albuterol/Ipratropium) 3 Ml Ampul.neb 3 Ml NEB RTQID Humalog (Insulin Lispro) 100 Unit/1 Ml Insuln.pen 15 Unit SQ TIDAC Lantus Solostar (Insulin Glargine,Hum.rec.anlog) 100 Unit/1 Ml Insuln.pen 25 Unit SQ QHS Hydrocodone-Apap 5-325 (Hydrocodone Bit/Acetaminophen) 1 Each Tablet 1 Tab PO PRN Q4HRS PRN Clopidogrel (Clopidogrel Bisulfate) 75 Mg Tablet 75 Mg PO DAILY Carvedilol 3.125 Mg Tablet 3.125 Mg PO BIDWMEALS Budesonide 0.5 Mg/2 Ml Ampul.neb 0.5 Mg NEB RTBID Atorvastatin Calcium 40 Mg Tablet 40 Mg PO QHS Aspirin 325 Mg Tablet 325 Mg PO DAILY Alprazolam 0.5 Mg Tablet 0.5 Mg PO PRN Q8HRS PRN Acetaminophen 500 Mg Tablet 500 Mg PO PRN Q8HRS PRN Ferrous Sulfate 325 Mg Tablet 325 Mg PO DAILY Do not give within 2 hours of antacids or calcium products. Give with food. Divalproex Sodium Er (Divalproex Sodium) 500 Mg Tab.er.24h 1,500 Mg PO HS Give with food. Do NOT crush or chew. Vitamin D3 (Cholecalciferol (Vitamin D3)) 1,000 Unit Tablet 3,000 Unit PO DAILY Wellbutrin (Bupropion Hcl) 100 Mg Tablet 100 Mg PO BID@0900,1200 Cymbalta (Duloxetine Hcl) 30 Mg Capsule.dr 30 Mg PO DAILY I have reviewed the current psychotropics carefully including drug interactions. Risk benefit ratio favors no change other than as noted in my dictated progress note. Diagnosis: Problems: (1) Anxiety disorder (2) Depression (3) Bipolar 1 disorder (4) Difficulty controlling anger GRANT HYLTON MD Jun 28, 2018 20:09
--- NOTE | 2018-06-28 23:30 | PN ---
DATE: 06/26/2018 PSYCHIATRIC PROGRESS NOTE This late entry 06/26/2018 covers elements not covered in my initial note. SUBJECTIVE: Met with the patient in the evening. The patient slept 6-1/2 hours previous evening. Previous night, he complained of chest pain. Labs and EKG were negative. He is drowsy in morning of 06/26/2018 until lunchtime, somewhat sedated, wanting to lie down and then he, per nursing report, had a "miraculous transformation." He has not complained of any further somatic symptoms since then. REVIEW OF SYSTEMS: Ambulation is impaired, in wheelchair. No CV, , pulmonary, eye, ENT system symptoms on review. MENTAL STATUS EXAM: Oriented to himself, situation. Speech is coherent, has some latency. Abstraction fair, computation impaired, language function is intact, attention span short. Mood and affect still somewhat dysphoric, anxious. IMPRESSION: Unchanged from initial note. PLAN: No change from initial note. GRANT HYLTON MD DR: GROVER/joselyn JOB#: [id number] / [id number]
[2018-06-29] MEDS: IPRATRPIUM/ALBUTEROL 0.5/2.5MG 3 ML NEBU. NEB SCH ×4 (05:18→20:27)
[2018-06-29 06:39] VITALS: BP 111/64
[2018-06-29 07:30] LABS: BASO % 1 % (0-3); EOS % 1 % (0-3); HEMATOCRIT 28.5 % (39.0-53.0); HEMOGLOBIN 9.4 g/dL (13.0-17.5); LYMPH # 1.7 x10^3/uL (1.0-4.8); LYMPH % 50 % (24-48); MEAN CORPUSCULAR HEMOGLOBIN 31 pg (25-35); MEAN CORPUSCULAR HGB CONC 33 g/dL (31-37); MEAN CORPUSCULAR VOLUME 93 fL (79-100); MONO # 0.4 x10^3/uL (0.0-1.1); MONO % 10 % (0-9); NEUT # 1.3 x10^3uL (1.8-7.7); NEUT % 39 % (31-73); PLATELET COUNT 207 x10^3/uL (140-400); RED BLOOD COUNT 3.06 x10^6/uL (4.30-5.70); RED CELL DISTRIBUTION WIDTH 17.3 % (11.5-14.5); WHITE BLOOD COUNT 3.4 x10^3/uL (4.0-11.0)
[2018-06-29 07:54] LABS: ALBUMIN 2.6 g/dL (3.4-5.0); ALBUMIN/GLOBULIN RATIO 0.7 (1.0-1.7); ALK PHOS 43 U/L (46-116); ALT (SGPT) 9 U/L (16-63); ANION GAP 8 (6-14); AST (SGOT) 10 U/L (15-37); BLOOD UREA NITROGEN 18 mg/dL (8-26); BUN/CREATININE RATIO 20 (6-20); CALCIUM 8.9 mg/dL (8.5-10.1); CARBON DIOXIDE 27 mmol/L (21-32); CHLORIDE 104 mmol/L (98-107); CREATININE 0.9 mg/dL (0.7-1.3); GFR 82.5; GLUCOSE 103 mg/dL (70-99); POTASSIUM 4.1 mmol/L (3.5-5.1); SODIUM 139 mmol/L (136-145); TOTAL BILIRUBIN 0.5 mg/dL (0.2-1.0); TOTAL PROTEIN 6.4 g/dL (6.4-8.2)
[2018-06-29 07:58] LABS: VAL ACID 62 mcg/mL (50-100)
[2018-06-29] MEDS: DULoxetine HCL 20 MG CAPSULE.DR PO SCH (08:18)
[2018-06-29] MEDS: DULoxetine HCL 30 MG CAPSULE.DR PO SCH (08:19)
[2018-06-29] MEDS: CHOLECALCIFEROL (VITAMIN D3) 1,000 UNIT TABLET PO SCH (08:19)
[2018-06-29] MEDS: buPROPion 100 MG TABLET PO SCH ×2 (08:22→12:49)
[2018-06-29] MEDS: dilTIAZem HCL 30 MG TABLET PO SCH ×3 (08:22→19:36)
[2018-06-29] MEDS: FERROUS SULFATE 325 MG TABLET. PO SCH (08:22)
[2018-06-29] MEDS: CLOPIDOGREL BISULFATE 75 MG TABLET PO SCH (08:22)
[2018-06-29] MEDS: TAMSULOSIN 0.4 MG CAP.ER.24H. PO SCH (08:23)
[2018-06-29] MEDS: CARVEDILOL 3.125 MG TABLET PO SCH ×2 (08:23→17:00)
[2018-06-29] MEDS: ASPIRIN 325 MG TABLET PO SCH (08:23)
[2018-06-29] MEDS: PANTOPRAZOLE 40 MG TABLET. PO SCH (08:23)
[2018-06-29] MEDS: LACTOBACILLUS RHAMNOSUS GG 1 CAPSULE. PO SCH ×2 (08:23→19:34)
[2018-06-29] MEDS: RANOLAZINE 500 MG TAB.ER.12H PO SCH ×2 (08:24→19:39)
[2018-06-29] MEDS: INSULIN LISPRO 300 UNITS/3 ML INSULN.PEN. SQ SCH ×3 (08:25→16:30)
[2018-06-29] MEDS ORDERED: MAGNESIUM CITRATE 296 ML SOLUTION. PO ONE (09:10)
[2018-06-29] MEDS: BUDESONIDE 0.5 MG/2 ML NEBU NEB SCH ×2 (10:46→20:27)
[2018-06-29 14:56] VITALS: BP 110/68
[2018-06-29 16:17] VITALS: BP 117/71
[2018-06-29] MEDS: DIVALPROEX ER 500 MG TAB.ER.24H PO SCH (19:35)
[2018-06-29] MEDS: ATORVASTATIN CALCIUM 20 MG TABLET PO SCH (19:36)
[2018-06-29] MEDS: INSULIN GLARGINE 300 UNITS/3 ML INSULN.PEN. SQ SCH (19:43)
--- NOTE | 2018-06-29 21:12 | PDOC ---
Exam Note: Warner Note: Please also refer to the separate dictated note~for this date of service dictated separately.~Patient seen individually. Discussed the patient with Nursing staff reviewed the chart.~Reviewed interim history and current functioning. Reviewed vital signs,~Labs/ Radiology~and current medications noted below. Continue current treatment with the changes noted in the dictated addendum note Assessment: Vital Signs: Vital Signs Date Time Temp Pulse Resp B/P (MAP) Pulse Ox O2 Delivery O2 Flow Rate FiO2 06/29/18 20:33 97 Room Air 06/29/18 19:39 65 117/71 06/29/18 16:17 97.5 19 2.0 I&O Intake and Output 06/29/18 07:00 Intake Total 480 ml Balance 480 ml Intake Oral 480 ml Labs: Laboratory Tests Test 06/29/18 07:19 06/29/18 07:23 06/29/18 12:07 06/29/18 16:44 White Blood Count 3.4 x10^3/uL (4.0-11.0) L Red Blood Count 3.06 x10^6/uL (4.30-5.70) L Hemoglobin 9.4 g/dL (13.0-17.5) L Hematocrit 28.5 % (39.0-53.0) L Mean Corpuscular Volume 93 fL (79-100) Mean Corpuscular Hemoglobin 31 pg (25-35) Mean Corpuscular Hemoglobin Concent 33 g/dL (31-37) Red Cell Distribution Width 17.3 % (11.5-14.5) H Platelet Count 207 x10^3/uL (140-400) Neutrophils (%) (Auto) 39 % (31-73) Lymphocytes (%) (Auto) 50 % (24-48) H Monocytes (%) (Auto) 10 % (0-9) H Eosinophils (%) (Auto) 1 % (0-3) Basophils (%) (Auto) 1 % (0-3) Neutrophils # (Auto) 1.3 x10^3uL (1.8-7.7) L Lymphocytes # (Auto) 1.7 x10^3/uL (1.0-4.8) Monocytes # (Auto) 0.4 x10^3/uL (0.0-1.1) Eosinophils # (Auto) 0.0 x10^3/uL (0.0-0.7) Basophils # (Auto) 0.0 x10^3/uL (0.0-0.2) Sodium Level 139 mmol/L (136-145) Potassium Level 4.1 mmol/L (3.5-5.1) Chloride Level 104 mmol/L (98-107) Carbon Dioxide Level 27 mmol/L (21-32) Anion Gap 8 (6-14) Blood Urea Nitrogen 18 mg/dL (8-26) Creatinine 0.9 mg/dL (0.7-1.3) Estimated GFR (Cockcroft-Gault) 82.5 BUN/Creatinine Ratio 20 (6-20) Glucose Level 103 mg/dL (70-99) H Calcium Level 8.9 mg/dL (8.5-10.1) Total Bilirubin 0.5 mg/dL (0.2-1.0) Aspartate Amino Transferase (AST) 10 U/L (15-37) L Alanine Aminotransferase (ALT) 9 U/L (16-63) L Alkaline Phosphatase 43 U/L (46-116) L Total Protein 6.4 g/dL (6.4-8.2) Albumin 2.6 g/dL (3.4-5.0) L Albumin/Globulin Ratio 0.7 (1.0-1.7) L Valproic Acid Level 62 mcg/mL (50-100) Valproic Acid Last Dose Date 06/28/18 Valproic Acid Last Dose Time 2100 Glucose (Fingerstick) 107 mg/dL (70-99) H 99 mg/dL (70-99) 66 mg/dL (70-99) L Test 06/29/18 17:23 06/29/18 19:20 Glucose (Fingerstick) 92 mg/dL (70-99) 93 mg/dL (70-99) Current Medications: Meds: Current Medications Acetaminophen (Tylenol) 650 mg PRN Q6HRS PRN PO PAIN / TEMP; Start 06/25/18 at 15:15; Stop 06/25/18 at 15:47; Status DC Multi-Ingredient Ointment (Analgesic [place]) 1 georgina PRN QID PRN TP MUSCLE PAIN; Start 06/25/18 at 15:15 Al Hydroxide/Mg Hydroxide (Mylanta Plus Xs) 15 ml PRN AFTMEALHC PRN PO DYSPEPSIA; Start 06/25/18 at 15:15 Magnesium Hydroxide (Milk Of Magnesia) 2,400 mg PRN QHS PRN PO CONSTIPATION Last administered on 06/28/18 08:15; Start 06/25/18 at 15:15 Aspirin (Michelle Aspirin) 325 mg DAILY PO Last administered on 06/29/18 08:23; Start 06/26/18 at 09:00 Bupropion HCl (Wellbutrin) 100 mg BID@0900,1200 PO Last administered on 12:49; Start 06/26/18 at 09:00 Vitamin D (Vitamin D3) 3,000 unit DAILY PO Last administered on 06/29/18 08:19 ; Start 06/26/18 at 09:00 Clopidogrel Bisulfate (Plavix) 75 mg DAILY PO Last administered on 06/29/18 08: 22; Start 06/26/18 at 09:00 Diltiazem HCl (Cardizem) 30 mg TID PO Last administered on 06/29/18 19:36; Start 06/25/18 at 21:00 Ferrous Sulfate (Feosol) 325 mg DAILY PO Last administered on 06/29/18 08:22; Start 06/26/18 at 09:00 Insulin Glargine (Lantus) 25 units QHS SQ Last administered on 06/29/18 19:43; Start 06/25/18 at 21:00 Insulin Human Lispro (HumaLOG) 15 units TIDAC SQ Last administered on 06/29/18 12:49; Start 06/25/18 at 16:30 Albuterol/ Ipratropium (Duoneb) 3 ml RTQID NEB Last administered on 06/29/18 20 :27; Start 06/25/18 at 16:00 Nitroglycerin (Nitrostat) 0.4 mg PRN Q5MIN PRN SL CHEST PAIN Last administered on 06/26/18 04:24; Start 06/25/18 at 15:15 Ondansetron HCl (Zofran Odt) 4 mg PRN Q8HRS PRN PO NAUSEA/VOMITING; Start at 16:00 Tamsulosin HCl (Flomax) 0.4 mg DAILY PO Last administered on 06/29/18 08:23; Start 06/26/18 at 09:00 Acetaminophen (Tylenol) 500 mg PRN Q8HRS PRN PO PAIN / TEMP Last administered on 06/26/18 03:26; Start 06/25/18 at 15:45 Alprazolam (Xanax) 0.5 mg PRN Q8HRS PRN PO ANXIETY / AGITATION Last administered on 06/27/18 14:26; Start 06/25/18 at 15:45 Atorvastatin Calcium (Lipitor) 40 mg QHS PO Last administered on 06/29/18 19:36 ; Start 06/25/18 at 21:00 Budesonide (Pulmicort) 0.5 mg RTBID NEB Last administered on 06/29/18 20:27; Start 06/25/18 at 20:00 Carvedilol (Coreg) 3.125 mg BIDWMEALS PO Last administered on 06/29/18 17:00; Start 06/25/18 at 17:00 Divalproex Sodium (Depakote Er) 1,500 mg QHS PO Last administered on 06/29/18 19:35; Start 06/25/18 at 21:00 Duloxetine HCl (Cymbalta) 20 mg DAILY PO Last administered on 06/29/18 08:18; Start 06/26/18 at 09:00 Duloxetine HCl (Cymbalta) 30 mg DAILY PO Last administered on 06/29/18 08:19; Start 06/26/18 at 09:00 Acetaminophen/ Hydrocodone Bitart (Lortab 5/325) 1 tab PRN Q4HRS PRN PO PAIN; Start 06/25/18 at 16:00 Lactobacillus Rhamnosus (Culturelle) 1 cap BID PO Last administered on 19:34; Start 06/25/18 at 21:00 Pantoprazole Sodium (Protonix) 40 mg DAILYAC PO Last administered on 06/29/18 08:23; Start 06/26/18 at 07:30 Ranolazine (Ranexa) 1,000 mg BID PO Last administered on 06/29/18 19:39; Start 06/25/18 at 21:00 Senna/Docusate Sodium (Senna Plus) 1 tab PRN BID PRN PO CONSTIPATION; Start 06/28/18 at 19:00 Magnesium Citrate (Citroma) 296 ml 1X ONCE PO Last administered on 06/29/18at 09 :10; Start 06/29/18 at 09:10; Stop 06/29/18 at 09:11; Status DC Active Scripts Active Reported NITROGLYCERIN SubLingual (Nitroglycerin) 0.4 Mg Tab.subl 0.4 Mg SL PRN Q5MIN PRN Cymbalta (Duloxetine Hcl) 20 Mg Capsule.dr 20 Mg PO DAILY Cardizem Tablet (Diltiazem Hcl) 30 Mg Tablet 30 Mg PO TID Tamsulosin Hcl 0.4 Mg Cap.er.24h 0.4 Mg PO DAILY Ranexa (Ranolazine) 500 Mg Tab.er.12h 1,000 Mg PO BID Protonix (Pantoprazole Sodium) 40 Mg Tablet.dr 40 Mg PO DAILYAC Ondansetron Odt (Ondansetron) 4 Mg Tab.rapdis 4 Mg PO PRN Q8HRS PRN Culturelle (Lactobacillus Rhamnosus Gg) 1 Each Capsule 1 Each PO BID Duoneb 0.5-3(2.5) Mg/3 Ml (Albuterol/Ipratropium) 3 Ml Ampul.neb 3 Ml NEB RTQID Humalog (Insulin Lispro) 100 Unit/1 Ml Insuln.pen 15 Unit SQ TIDAC Lantus Solostar (Insulin Glargine,Hum.rec.anlog) 100 Unit/1 Ml Insuln.pen 25 Unit SQ QHS Hydrocodone-Apap 5-325 (Hydrocodone Bit/Acetaminophen) 1 Each Tablet 1 Tab PO PRN Q4HRS PRN Clopidogrel (Clopidogrel Bisulfate) 75 Mg Tablet 75 Mg PO DAILY Carvedilol 3.125 Mg Tablet 3.125 Mg PO BIDWMEALS Budesonide 0.5 Mg/2 Ml Ampul.neb 0.5 Mg NEB RTBID Atorvastatin Calcium 40 Mg Tablet 40 Mg PO QHS Aspirin 325 Mg Tablet 325 Mg PO DAILY Alprazolam 0.5 Mg Tablet 0.5 Mg PO PRN Q8HRS PRN Acetaminophen 500 Mg Tablet 500 Mg PO PRN Q8HRS PRN Ferrous Sulfate 325 Mg Tablet 325 Mg PO DAILY Do not give within 2 hours of antacids or calcium products. Give with food. Divalproex Sodium Er (Divalproex Sodium) 500 Mg Tab.er.24h 1,500 Mg PO HS Give with food. Do NOT crush or chew. Vitamin D3 (Cholecalciferol (Vitamin D3)) 1,000 Unit Tablet 3,000 Unit PO DAILY Wellbutrin (Bupropion Hcl) 100 Mg Tablet 100 Mg PO BID@0900,1200 Cymbalta (Duloxetine Hcl) 30 Mg Capsule.dr 30 Mg PO DAILY I have reviewed the current psychotropics carefully including drug interactions. Risk benefit ratio favors no change other than as noted in my dictated progress note. Diagnosis: Problems: (1) Anxiety disorder (2) Depression (3) Bipolar 1 disorder (4) Difficulty controlling anger GRANT HYLTON MD Jun 29, 2018 21:12
--- NOTE | 2018-06-29 22:00 | PN ---
DATE: 06/28/2018 PSYCHIATRIC PROGRESS NOTE This is a late entry 06/28/2018 covers elements not covered in my initial note. SUBJECTIVE: I met with the patient in the evening. The patient slept 8-1/4 hours previous evening him. Complains of ongoing anxiety, being short of breath, and some constipation. REVIEW OF SYSTEMS: Ambulation impaired, in wheelchair. No CV, , pulmonary, eye system symptoms on review. MENTAL STATUS EXAM: Oriented to himself and situation. Speech coherent, has some latency. Abstraction fair, computation impaired, language function intact. Mood and affect remain somewhat anxious, labile. LABORATORY DATA: Reviewed. IMPRESSION: Bipolar 1 disorder, mixed with psychotic features; anxiety disorder, unspecified. PLAN: Check valproic acid level in the morning of 06/29/2018, use Senna for the constipation. Rest unchanged from initial note. MAN Rick HYLTON MD DR: GROVER/joselyn JOB#: [id number] / [id number]
--- NOTE | 2018-06-29 22:40 | PN ---
DATE: 06/27/2018 PSYCHIATRIC PROGRESS NOTE This is a late entry for 06/27/2018, covers elements not covered in my initial note. SUBJECTIVE: I met with the patient in the evening. The patient slept 8-1/2 hours previous evening. He has been yelling at times, anxious, states he cannot breathe though O2 sats 96%, received Xanax, which was helpful. REVIEW OF SYSTEMS: Ambulation impaired, in wheelchair. Notes difficulty with breathing. No CV, , GI system symptoms on review. MENTAL STATUS EXAM: Reasonably oriented. Speech is coherent, has some latency. Abstraction fair, computation impaired, language function intact, attention span short. Mood and affect remain somewhat anxious, labile. LABORATORY DATA: Reviewed. IMPRESSION: Bipolar 1 disorder, mixed with psychotic features. Rest unchanged. Anxiety disorder, unspecified. PLAN: Continue current psychotropics, use Xanax p.r.n. May reduce the Wellbutrin, increase Cymbalta if symptoms persist. Valproic acid level will be repeated with adjustment to reach therapeutic level. MAN Rick HYLTON MD DR: GROVER/joselyn JOB#: [id number] / [id number]
[2018-06-30] MEDS: IPRATRPIUM/ALBUTEROL 0.5/2.5MG 3 ML NEBU. NEB SCH ×4 (04:16→21:23)
[2018-06-30 06:54] VITALS: BP 98/52
[2018-06-30] MEDS: INSULIN LISPRO 300 UNITS/3 ML INSULN.PEN. SQ SCH ×3 (07:30→18:19)
[2018-06-30] MEDS: buPROPion 100 MG TABLET PO SCH ×2 (09:24→12:29)
[2018-06-30] MEDS: DULoxetine HCL 30 MG CAPSULE.DR PO SCH (09:24)
[2018-06-30] MEDS: DULoxetine HCL 20 MG CAPSULE.DR PO SCH (09:24)
[2018-06-30] MEDS: FERROUS SULFATE 325 MG TABLET. PO SCH (09:24)
[2018-06-30] MEDS: dilTIAZem HCL 30 MG TABLET PO SCH ×3 (09:25→19:41)
[2018-06-30] MEDS: CARVEDILOL 3.125 MG TABLET PO SCH ×2 (09:25→18:18)
[2018-06-30] MEDS: LACTOBACILLUS RHAMNOSUS GG 1 CAPSULE. PO SCH ×2 (09:25→19:41)
[2018-06-30] MEDS: PANTOPRAZOLE 40 MG TABLET. PO SCH (09:25)
[2018-06-30] MEDS: ASPIRIN 325 MG TABLET PO SCH (09:25)
[2018-06-30] MEDS: CLOPIDOGREL BISULFATE 75 MG TABLET PO SCH (09:25)
[2018-06-30] MEDS: TAMSULOSIN 0.4 MG CAP.ER.24H. PO SCH (09:25)
[2018-06-30] MEDS: CHOLECALCIFEROL (VITAMIN D3) 1,000 UNIT TABLET PO SCH (09:26)
[2018-06-30] MEDS: RANOLAZINE 500 MG TAB.ER.12H PO SCH ×2 (09:26→19:44)
[2018-06-30 09:40] VITALS: BP 103/56
[2018-06-30] MEDS: BUDESONIDE 0.5 MG/2 ML NEBU NEB SCH ×2 (10:13→21:23)
[2018-06-30] MEDS: MAGNESIUM HYDROXIDE 2,400 MG/30 ML ORAL.SUSP. PO PRN (12:30)
[2018-06-30 16:23] VITALS: BP 103/63
[2018-06-30] MEDS: DIVALPROEX ER 500 MG TAB.ER.24H PO SCH (19:41)
[2018-06-30] MEDS: ATORVASTATIN CALCIUM 20 MG TABLET PO SCH (19:42)
[2018-06-30] MEDS: INSULIN GLARGINE 300 UNITS/3 ML INSULN.PEN. SQ SCH (19:46)
--- NOTE | 2018-06-30 20:39 | PDOC ---
Exam Note: Warner Note: Please also refer to the separate dictated note~for this date of service dictated separately.~Patient seen individually. Discussed the patient with Nursing staff reviewed the chart.~Reviewed interim history and current functioning. Reviewed vital signs,~Labs/ Radiology~and current medications noted below. Continue current treatment with the changes noted in the dictated addendum note Assessment: Vital Signs: Vital Signs Date Time Temp Pulse Resp B/P (MAP) Pulse Ox O2 Delivery O2 Flow Rate FiO2 06/30/18 19:44 66 103/63 06/30/18 16:23 97.6 18 93 06/30/18 15:52 Room Air 06/30/18 06:54 2.0 I&O Intake and Output 06/30/18 06:59 Intake Total 840 ml Output Total 500 ml Balance 340 ml Intake Oral 840 ml Output Urine Total 500 ml Labs: Laboratory Tests Test 06/30/18 07:13 06/30/18 12:17 06/30/18 17:20 06/30/18 19:20 Glucose (Fingerstick) 92 mg/dL (70-99) 141 mg/dL (70-99) H 117 mg/dL (70-99) H 139 mg/dL (70-99) H Current Medications: Meds: Current Medications Acetaminophen (Tylenol) 650 mg PRN Q6HRS PRN PO PAIN / TEMP; Start 06/25/18 at 15:15; Stop 06/25/18 at 15:47; Status DC Multi-Ingredient Ointment (Analgesic [place]) 1 georgina PRN QID PRN TP MUSCLE PAIN; Start 06/25/18 at 15:15 Al Hydroxide/Mg Hydroxide (Mylanta Plus Xs) 15 ml PRN AFTMEALHC PRN PO DYSPEPSIA; Start 06/25/18 at 15:15 Magnesium Hydroxide (Milk Of Magnesia) 2,400 mg PRN QHS PRN PO CONSTIPATION Last administered on 06/30/18at 12:30; Start 06/25/18 at 15:15 Aspirin (Michelle Aspirin) 325 mg DAILY PO Last administered on 06/30/18at 09:25; Start 06/26/18 at 09:00 Bupropion HCl (Wellbutrin) 100 mg BID@0900,1200 PO Last administered on at 12:29; Start 06/26/18 at 09:00 Vitamin D (Vitamin D3) 3,000 unit DAILY PO Last administered on 06/30/18 09:26 ; Start 06/26/18 at 09:00 Clopidogrel Bisulfate (Plavix) 75 mg DAILY PO Last administered on 06/30/18 09: 25; Start 06/26/18 at 09:00 Diltiazem HCl (Cardizem) 30 mg TID PO Last administered on 06/30/18 19:41; Start 06/25/18 at 21:00 Ferrous Sulfate (Feosol) 325 mg DAILY PO Last administered on 06/30/18 09:24; Start 06/26/18 at 09:00 Insulin Glargine (Lantus) 25 units QHS SQ Last administered on 06/30/18 19:46; Start 06/25/18 at 21:00 Insulin Human Lispro (HumaLOG) 15 units TIDAC SQ Last administered on 06/30/18 18:19; Start 06/25/18 at 16:30 Albuterol/ Ipratropium (Duoneb) 3 ml RTQID NEB Last administered on 06/30/18 15 :50; Start 06/25/18 at 16:00 Nitroglycerin (Nitrostat) 0.4 mg PRN Q5MIN PRN SL CHEST PAIN Last administered on 06/26/18 04:24; Start 06/25/18 at 15:15 Ondansetron HCl (Zofran Odt) 4 mg PRN Q8HRS PRN PO NAUSEA/VOMITING; Start at 16:00 Tamsulosin HCl (Flomax) 0.4 mg DAILY PO Last administered on 06/30/18 09:25; Start 06/26/18 at 09:00 Acetaminophen (Tylenol) 500 mg PRN Q8HRS PRN PO PAIN / TEMP Last administered on 06/26/18 03:26; Start 06/25/18 at 15:45 Alprazolam (Xanax) 0.5 mg PRN Q8HRS PRN PO ANXIETY / AGITATION Last administered on 06/27/18 14:26; Start 06/25/18 at 15:45 Atorvastatin Calcium (Lipitor) 40 mg QHS PO Last administered on 06/30/18 19:42 ; Start 06/25/18 at 21:00 Budesonide (Pulmicort) 0.5 mg RTBID NEB Last administered on 06/30/18 10:13; Start 06/25/18 at 20:00 Carvedilol (Coreg) 3.125 mg BIDWMEALS PO Last administered on 06/30/18 18:18; Start 06/25/18 at 17:00 Divalproex Sodium (Depakote Er) 1,500 mg QHS PO Last administered on 06/30/18 19:41; Start 06/25/18 at 21:00 Duloxetine HCl (Cymbalta) 20 mg DAILY PO Last administered on 06/30/18 09:24; Start 06/26/18 at 09:00 Duloxetine HCl (Cymbalta) 30 mg DAILY PO Last administered on 06/30/18 09:24; Start 06/26/18 at 09:00 Acetaminophen/ Hydrocodone Bitart (Lortab 5/325) 1 tab PRN Q4HRS PRN PO PAIN; Start 06/25/18 at 16:00 Lactobacillus Rhamnosus (Culturelle) 1 cap BID PO Last administered on 19:41; Start 06/25/18 at 21:00 Pantoprazole Sodium (Protonix) 40 mg DAILYAC PO Last administered on 06/30/18 09:25; Start 06/26/18 at 07:30 Ranolazine (Ranexa) 1,000 mg BID PO Last administered on 06/30/18 19:44; Start 06/25/18 at 21:00 Senna/Docusate Sodium (Senna Plus) 1 tab PRN BID PRN PO CONSTIPATION; Start 06/28/18 at 19:00 Magnesium Citrate (Citroma) 296 ml 1X ONCE PO Last administered on 06/29/18at 09 :10; Start 06/29/18 at 09:10; Stop 06/29/18 at 09:11; Status DC Active Scripts Active Reported NITROGLYCERIN SubLingual (Nitroglycerin) 0.4 Mg Tab.subl 0.4 Mg SL PRN Q5MIN PRN Cymbalta (Duloxetine Hcl) 20 Mg Capsule.dr 20 Mg PO DAILY Cardizem Tablet (Diltiazem Hcl) 30 Mg Tablet 30 Mg PO TID Tamsulosin Hcl 0.4 Mg Cap.er.24h 0.4 Mg PO DAILY Ranexa (Ranolazine) 500 Mg Tab.er.12h 1,000 Mg PO BID Protonix (Pantoprazole Sodium) 40 Mg Tablet.dr 40 Mg PO DAILYAC Ondansetron Odt (Ondansetron) 4 Mg Tab.rapdis 4 Mg PO PRN Q8HRS PRN Culturelle (Lactobacillus Rhamnosus Gg) 1 Each Capsule 1 Each PO BID Duoneb 0.5-3(2.5) Mg/3 Ml (Albuterol/Ipratropium) 3 Ml Ampul.neb 3 Ml NEB RTQID Humalog (Insulin Lispro) 100 Unit/1 Ml Insuln.pen 15 Unit SQ TIDAC Lantus Solostar (Insulin Glargine,Hum.rec.anlog) 100 Unit/1 Ml Insuln.pen 25 Unit SQ QHS Hydrocodone-Apap 5-325 (Hydrocodone Bit/Acetaminophen) 1 Each Tablet 1 Tab PO PRN Q4HRS PRN Clopidogrel (Clopidogrel Bisulfate) 75 Mg Tablet 75 Mg PO DAILY Carvedilol 3.125 Mg Tablet 3.125 Mg PO BIDWMEALS Budesonide 0.5 Mg/2 Ml Ampul.neb 0.5 Mg NEB RTBID Atorvastatin Calcium 40 Mg Tablet 40 Mg PO QHS Aspirin 325 Mg Tablet 325 Mg PO DAILY Alprazolam 0.5 Mg Tablet 0.5 Mg PO PRN Q8HRS PRN Acetaminophen 500 Mg Tablet 500 Mg PO PRN Q8HRS PRN Ferrous Sulfate 325 Mg Tablet 325 Mg PO DAILY Do not give within 2 hours of antacids or calcium products. Give with food. Divalproex Sodium Er (Divalproex Sodium) 500 Mg Tab.er.24h 1,500 Mg PO HS Give with food. Do NOT crush or chew. Vitamin D3 (Cholecalciferol (Vitamin D3)) 1,000 Unit Tablet 3,000 Unit PO DAILY Wellbutrin (Bupropion Hcl) 100 Mg Tablet 100 Mg PO BID@0900,1200 Cymbalta (Duloxetine Hcl) 30 Mg Capsule. 30 Mg PO DAILY I have reviewed the current psychotropics carefully including drug interactions. Risk benefit ratio favors no change other than as noted in my dictated progress note. Diagnosis: Problems: (1) Anxiety disorder (2) Depression (3) Bipolar 1 disorder (4) Difficulty controlling anger GRANT HYTLON MD Jun 30, 2018 20:39
--- NOTE | 2018-07-01 00:26 | PN ---
DATE: 06/29/2018 This is a late entry 06/29/2018 covers elements not covered in my initial note. SUBJECTIVE: I met with the patient in the evening. The patient slept 6 hours previous evening, has done better, less anxious, irritable, less labile, somewhat withdrawn, wanting to lay down in his bed most of the time. REVIEW OF SYSTEMS: Ambulation impaired, in Broda chair. No CV, , pulmonary, eye, ENT system symptoms on review. Gait unsteady. MENTAL STATUS EXAM: Oriented to himself and situation. Speech has some latency, coherent. Abstraction fair, computation impaired, language function intact. Mood and affect somewhat withdrawn, less labile. No suicidal or homicidal ideation. IMPRESSION: Unchanged from initial note. Valproic acid level therapeutic at 62. PLAN: No change from initial note. MAN Rick HYLTON MD DR: GROVER/joselyn JOB#: [id number] / [id number]
[2018-07-01] MEDS: IPRATRPIUM/ALBUTEROL 0.5/2.5MG 3 ML NEBU. NEB SCH ×4 (05:36→22:18)
[2018-07-01 05:58] VITALS: BP 131/64
[2018-07-01] MEDS: INSULIN LISPRO 300 UNITS/3 ML INSULN.PEN. SQ SCH ×3 (07:30→16:39)
[2018-07-01] MEDS: ASPIRIN 325 MG TABLET PO SCH (08:07)
[2018-07-01] MEDS: CARVEDILOL 3.125 MG TABLET PO SCH ×2 (08:07→16:37)
[2018-07-01] MEDS: PANTOPRAZOLE 40 MG TABLET. PO SCH (08:07)
[2018-07-01] MEDS: LACTOBACILLUS RHAMNOSUS GG 1 CAPSULE. PO SCH ×2 (08:08→20:28)
[2018-07-01] MEDS: DULoxetine HCL 30 MG CAPSULE.DR PO SCH (08:08)
[2018-07-01] MEDS: dilTIAZem HCL 30 MG TABLET PO SCH ×3 (08:08→20:28)
[2018-07-01] MEDS: DULoxetine HCL 20 MG CAPSULE.DR PO SCH (08:08)
[2018-07-01] MEDS: TAMSULOSIN 0.4 MG CAP.ER.24H. PO SCH (08:09)
[2018-07-01] MEDS: RANOLAZINE 500 MG TAB.ER.12H PO SCH ×2 (08:09→20:29)
[2018-07-01] MEDS: FERROUS SULFATE 325 MG TABLET. PO SCH (08:09)
[2018-07-01] MEDS: CHOLECALCIFEROL (VITAMIN D3) 1,000 UNIT TABLET PO SCH (08:09)
[2018-07-01] MEDS: CLOPIDOGREL BISULFATE 75 MG TABLET PO SCH (08:09)
[2018-07-01] MEDS: buPROPion 100 MG TABLET PO SCH ×2 (08:10→12:06)
[2018-07-01] MEDS: BUDESONIDE 0.5 MG/2 ML NEBU NEB SCH ×2 (09:32→22:18)
[2018-07-01 16:25] VITALS: BP 107/68
[2018-07-01] MEDS: DIVALPROEX ER 500 MG TAB.ER.24H PO SCH (20:29)
[2018-07-01] MEDS: ATORVASTATIN CALCIUM 20 MG TABLET PO SCH (20:29)
[2018-07-01] MEDS: INSULIN GLARGINE 300 UNITS/3 ML INSULN.PEN. SQ SCH (20:33)
--- NOTE | 2018-07-01 21:08 | PDOC ---
Exam Note: Warner Note: Please also refer to the separate dictated note~for this date of service dictated separately.~Patient seen individually. Discussed the patient with Nursing staff reviewed the chart.~Reviewed interim history and current functioning. Reviewed vital signs,~Labs/ Radiology~and current medications noted below. Continue current treatment with the changes noted in the dictated addendum note Assessment: Vital Signs: Vital Signs Date Time Temp Pulse Resp B/P (MAP) Pulse Ox O2 Delivery O2 Flow Rate FiO2 07/01/18 20:29 66 107/68 07/01/18 16:25 97.8 20 96 1.0 07/01/18 15:56 Nasal Cannula I&O Intake and Output 07/01/18 06:59 Intake Total 1145 ml Output Total 200 ml Balance 945 ml Intake Oral 1145 ml Output Urine Total 200 ml Labs: Laboratory Tests Test 07/01/18 07:26 07/01/18 11:58 07/01/18 16:21 07/01/18 19:00 Glucose (Fingerstick) 102 mg/dL (70-99) H 165 mg/dL (70-99) H 134 mg/dL (70-99) H 87 mg/dL (70-99) Current Medications: Meds: Current Medications Acetaminophen (Tylenol) 650 mg PRN Q6HRS PRN PO PAIN / TEMP; Start 06/25/18 at 15:15; Stop 06/25/18 at 15:47; Status DC Multi-Ingredient Ointment (Analgesic [place]) 1 georgina PRN QID PRN TP MUSCLE PAIN; Start 06/25/18 at 15:15 Al Hydroxide/Mg Hydroxide (Mylanta Plus Xs) 15 ml PRN AFTMEALHC PRN PO DYSPEPSIA; Start 06/25/18 at 15:15 Magnesium Hydroxide (Milk Of Magnesia) 2,400 mg PRN QHS PRN PO CONSTIPATION Last administered on 06/30/18at 12:30; Start 06/25/18 at 15:15 Aspirin (Michelle Aspirin) 325 mg DAILY PO Last administered on 07/01/18at 08:07; Start 06/26/18 at 09:00 Bupropion HCl (Wellbutrin) 100 mg BID@0900,1200 PO Last administered on at 12:06; Start 06/26/18 at 09:00 Vitamin D (Vitamin D3) 3,000 unit DAILY PO Last administered on 07/01/18 08:09 ; Start 06/26/18 at 09:00 Clopidogrel Bisulfate (Plavix) 75 mg DAILY PO Last administered on 07/01/18 08: 09; Start 06/26/18 at 09:00 Diltiazem HCl (Cardizem) 30 mg TID PO Last administered on 07/01/18 20:28; Start 06/25/18 at 21:00 Ferrous Sulfate (Feosol) 325 mg DAILY PO Last administered on 07/01/18 08:09; Start 06/26/18 at 09:00 Insulin Glargine (Lantus) 25 units QHS SQ Last administered on 07/01/18 20:33; Start 06/25/18 at 21:00 Insulin Human Lispro (HumaLOG) 15 units TIDAC SQ Last administered on 07/01/18 16:39; Start 06/25/18 at 16:30 Albuterol/ Ipratropium (Duoneb) 3 ml RTQID NEB Last administered on 07/01/18 15 :56; Start 06/25/18 at 16:00 Nitroglycerin (Nitrostat) 0.4 mg PRN Q5MIN PRN SL CHEST PAIN Last administered on 06/26/18 04:24; Start 06/25/18 at 15:15 Ondansetron HCl (Zofran Odt) 4 mg PRN Q8HRS PRN PO NAUSEA/VOMITING; Start at 16:00 Tamsulosin HCl (Flomax) 0.4 mg DAILY PO Last administered on 07/01/18 08:09; Start 06/26/18 at 09:00 Acetaminophen (Tylenol) 500 mg PRN Q8HRS PRN PO PAIN / TEMP Last administered on 06/26/18 03:26; Start 06/25/18 at 15:45 Alprazolam (Xanax) 0.5 mg PRN Q8HRS PRN PO ANXIETY / AGITATION Last administered on 06/27/18 14:26; Start 06/25/18 at 15:45 Atorvastatin Calcium (Lipitor) 40 mg QHS PO Last administered on 07/01/18 20:29 ; Start 06/25/18 at 21:00 Budesonide (Pulmicort) 0.5 mg RTBID NEB Last administered on 07/01/18 09:32; Start 06/25/18 at 20:00 Carvedilol (Coreg) 3.125 mg BIDWMEALS PO Last administered on 07/01/18 08:07; Start 06/25/18 at 17:00 Divalproex Sodium (Depakote Er) 1,500 mg QHS PO Last administered on 07/01/18 20:29; Start 06/25/18 at 21:00 Duloxetine HCl (Cymbalta) 20 mg DAILY PO Last administered on 07/01/18 08:08; Start 06/26/18 at 09:00 Duloxetine HCl (Cymbalta) 30 mg DAILY PO Last administered on 07/01/18 08:08; Start 06/26/18 at 09:00 Acetaminophen/ Hydrocodone Bitart (Lortab 5/325) 1 tab PRN Q4HRS PRN PO PAIN; Start 06/25/18 at 16:00 Lactobacillus Rhamnosus (Culturelle) 1 cap BID PO Last administered on 20:28; Start 06/25/18 at 21:00 Pantoprazole Sodium (Protonix) 40 mg DAILYAC PO Last administered on 07/01/18 08:07; Start 06/26/18 at 07:30 Ranolazine (Ranexa) 1,000 mg BID PO Last administered on 07/01/18 20:29; Start 06/25/18 at 21:00 Senna/Docusate Sodium (Senna Plus) 1 tab PRN BID PRN PO CONSTIPATION; Start 06/28/18 at 19:00 Magnesium Citrate (Citroma) 296 ml 1X ONCE PO Last administered on 06/29/18 09 :10; Start 06/29/18 at 09:10; Stop 06/29/18 at 09:11; Status DC Active Scripts Active Reported NITROGLYCERIN SubLingual (Nitroglycerin) 0.4 Mg Tab.subl 0.4 Mg SL PRN Q5MIN PRN Cymbalta (Duloxetine Hcl) 20 Mg Capsule.dr 20 Mg PO DAILY Cardizem Tablet (Diltiazem Hcl) 30 Mg Tablet 30 Mg PO TID Tamsulosin Hcl 0.4 Mg Cap.er.24h 0.4 Mg PO DAILY Ranexa (Ranolazine) 500 Mg Tab.er.12h 1,000 Mg PO BID Protonix (Pantoprazole Sodium) 40 Mg Tablet.dr 40 Mg PO DAILYAC Ondansetron Odt (Ondansetron) 4 Mg Tab.rapdis 4 Mg PO PRN Q8HRS PRN Culturelle (Lactobacillus Rhamnosus Gg) 1 Each Capsule 1 Each PO BID Duoneb 0.5-3(2.5) Mg/3 Ml (Albuterol/Ipratropium) 3 Ml Ampul.neb 3 Ml NEB RTQID Humalog (Insulin Lispro) 100 Unit/1 Ml Insuln.pen 15 Unit SQ TIDAC Lantus Solostar (Insulin Glargine,Hum.rec.anlog) 100 Unit/1 Ml Insuln.pen 25 Unit SQ QHS Hydrocodone-Apap 5-325 (Hydrocodone Bit/Acetaminophen) 1 Each Tablet 1 Tab PO PRN Q4HRS PRN Clopidogrel (Clopidogrel Bisulfate) 75 Mg Tablet 75 Mg PO DAILY Carvedilol 3.125 Mg Tablet 3.125 Mg PO BIDWMEALS Budesonide 0.5 Mg/2 Ml Ampul.neb 0.5 Mg NEB RTBID Atorvastatin Calcium 40 Mg Tablet 40 Mg PO QHS Aspirin 325 Mg Tablet 325 Mg PO DAILY Alprazolam 0.5 Mg Tablet 0.5 Mg PO PRN Q8HRS PRN Acetaminophen 500 Mg Tablet 500 Mg PO PRN Q8HRS PRN Ferrous Sulfate 325 Mg Tablet 325 Mg PO DAILY Do not give within 2 hours of antacids or calcium products. Give with food. Divalproex Sodium Er (Divalproex Sodium) 500 Mg Tab.er.24h 1,500 Mg PO HS Give with food. Do NOT crush or chew. Vitamin D3 (Cholecalciferol (Vitamin D3)) 1,000 Unit Tablet 3,000 Unit PO DAILY Wellbutrin (Bupropion Hcl) 100 Mg Tablet 100 Mg PO BID@0900,1200 Cymbalta (Duloxetine Hcl) 30 Mg Capsule.dr 30 Mg PO DAILY I have reviewed the current psychotropics carefully including drug interactions. Risk benefit ratio favors no change other than as noted in my dictated progress note. Diagnosis: Problems: (1) Anxiety disorder (2) Depression (3) Bipolar 1 disorder (4) Difficulty controlling anger GRANT HYLTON MD Jul 01, 2018 21:08
--- NOTE | 2018-07-01 22:36 | PN ---
DATE: 06/30/2018 PSYCHIATRIC PROGRESS NOTE This is a late entry, 06/30, covers elements not covered in my initial note. SUBJECTIVE: I met with the patient in the evening. The patient slept 6-1/2 hours previous evening, has been doing better. Ambulation is still impaired, in Broda chair. REVIEW OF SYSTEMS: No CV, , pulmonary, eye system symptoms on review. Less withdrawn. MENTAL STATUS EXAM: Reasonably oriented. Speech has some latency, coherent. Abstraction fair, computation impaired, language function intact. Mood and affect showing improvement, still withdrawn. No clear psychotic symptoms. LABORATORY DATA: Reviewed. IMPRESSION: Unchanged from initial note. PLAN: No change from initial note. GRANT HYLTON MD DR: GROVER/joselyn JOB#: [id number] / [id number]
[2018-07-01 23:45] VITALS: BP 110/61
[2018-07-02] MEDS: IPRATRPIUM/ALBUTEROL 0.5/2.5MG 3 ML NEBU. NEB SCH ×4 (05:43→21:20)
[2018-07-02] MEDS: BUDESONIDE 0.5 MG/2 ML NEBU NEB SCH ×2 (05:43→21:20)
[2018-07-02 06:25] VITALS: BP 108/59
[2018-07-02] MEDS: INSULIN LISPRO 300 UNITS/3 ML INSULN.PEN. SQ SCH ×3 (07:30→16:30)
[2018-07-02] MEDS: TAMSULOSIN 0.4 MG CAP.ER.24H. PO SCH (07:40)
[2018-07-02] MEDS: CLOPIDOGREL BISULFATE 75 MG TABLET PO SCH (07:40)
[2018-07-02] MEDS: DULoxetine HCL 30 MG CAPSULE.DR PO SCH (07:40)
[2018-07-02] MEDS: FERROUS SULFATE 325 MG TABLET. PO SCH (07:40)
[2018-07-02] MEDS: PANTOPRAZOLE 40 MG TABLET. PO SCH (07:40)
[2018-07-02] MEDS: CHOLECALCIFEROL (VITAMIN D3) 1,000 UNIT TABLET PO SCH (07:41)
[2018-07-02] MEDS: buPROPion 100 MG TABLET PO SCH ×2 (07:41→12:02)
[2018-07-02] MEDS: ASPIRIN 325 MG TABLET PO SCH (07:41)
[2018-07-02] MEDS: LACTOBACILLUS RHAMNOSUS GG 1 CAPSULE. PO SCH ×2 (07:41→19:47)
[2018-07-02] MEDS: CARVEDILOL 3.125 MG TABLET PO SCH ×2 (08:00→16:30)
[2018-07-02] MEDS: dilTIAZem HCL 30 MG TABLET PO SCH ×3 (09:00→19:47)
[2018-07-02] MEDS: RANOLAZINE 500 MG TAB.ER.12H PO SCH ×2 (09:00→19:50)
[2018-07-02] MEDS: DULoxetine HCL 20 MG CAPSULE.DR PO SCH (09:12)
[2018-07-02 15:45] VITALS: BP 121/73
[2018-07-02] MEDS: ATORVASTATIN CALCIUM 20 MG TABLET PO SCH (19:48)
[2018-07-02] MEDS: DIVALPROEX ER 500 MG TAB.ER.24H PO SCH (19:48)
[2018-07-02] MEDS: INSULIN GLARGINE 300 UNITS/3 ML INSULN.PEN. SQ SCH (20:12)
--- NOTE | 2018-07-02 20:27 | PDOC ---
Exam Note: Warner Note: Please also refer to the separate dictated note~for this date of service dictated separately.~Patient seen individually. Discussed the patient with Nursing staff reviewed the chart.~Reviewed interim history and current functioning. Reviewed vital signs,~Labs/ Radiology~and current medications noted below. Continue current treatment with the changes noted in the dictated addendum note Assessment: Vital Signs: Vital Signs Date Time Temp Pulse Resp B/P (MAP) Pulse Ox O2 Delivery O2 Flow Rate FiO2 07/02/18 19:50 69 121/73 07/02/18 16:38 96 Room Air 07/02/18 15:45 97.7 20 07/02/18 06:25 2.0 I&O Intake and Output 07/02/18 07:00 Intake Total 960 ml Output Total 625 ml Balance 335 ml Intake Oral 960 ml Output Urine Total 625 ml # Voids 1 Labs: Laboratory Tests Test 07/02/18 07:26 07/02/18 11:56 07/02/18 16:28 07/02/18 20:01 Glucose (Fingerstick) 85 mg/dL (70-99) 152 mg/dL (70-99) H 61 mg/dL (70-99) L 133 mg/dL (70-99) H Current Medications: Meds: Current Medications Acetaminophen (Tylenol) 650 mg PRN Q6HRS PRN PO PAIN / TEMP; Start 06/25/18 at 15:15; Stop 06/25/18 at 15:47; Status DC Multi-Ingredient Ointment (Analgesic [place]) 1 georgina PRN QID PRN TP MUSCLE PAIN; Start 06/25/18 at 15:15 Al Hydroxide/Mg Hydroxide (Mylanta Plus Xs) 15 ml PRN AFTMEALHC PRN PO DYSPEPSIA; Start 06/25/18 at 15:15 Magnesium Hydroxide (Milk Of Magnesia) 2,400 mg PRN QHS PRN PO CONSTIPATION Last administered on 06/30/18at 12:30; Start 06/25/18 at 15:15 Aspirin (Michelle Aspirin) 325 mg DAILY PO Last administered on 07/02/18at 07:41; Start 06/26/18 at 09:00 Bupropion HCl (Wellbutrin) 100 mg BID@0900,1200 PO Last administered on at 12:02; Start 06/26/18 at 09:00 Vitamin D (Vitamin D3) 3,000 unit DAILY PO Last administered on 07/02/18 07:41 ; Start 06/26/18 at 09:00 Clopidogrel Bisulfate (Plavix) 75 mg DAILY PO Last administered on 07/02/18 07: 40; Start 06/26/18 at 09:00 Diltiazem HCl (Cardizem) 30 mg TID PO Last administered on 07/02/18 19:47; Start 06/25/18 at 21:00 Ferrous Sulfate (Feosol) 325 mg DAILY PO Last administered on 07/02/18 07:40; Start 06/26/18 at 09:00 Insulin Glargine (Lantus) 25 units QHS SQ Last administered on 07/02/18 20:12; Start 06/25/18 at 21:00 Insulin Human Lispro (HumaLOG) 15 units TIDAC SQ Last administered on 07/02/18 12:03; Start 06/25/18 at 16:30 Albuterol/ Ipratropium (Duoneb) 3 ml RTQID NEB Last administered on 07/02/18 16 :38; Start 06/25/18 at 16:00 Nitroglycerin (Nitrostat) 0.4 mg PRN Q5MIN PRN SL CHEST PAIN Last administered on 06/26/18 04:24; Start 06/25/18 at 15:15 Ondansetron HCl (Zofran Odt) 4 mg PRN Q8HRS PRN PO NAUSEA/VOMITING; Start at 16:00 Tamsulosin HCl (Flomax) 0.4 mg DAILY PO Last administered on 07/02/18 07:40; Start 06/26/18 at 09:00 Acetaminophen (Tylenol) 500 mg PRN Q8HRS PRN PO PAIN / TEMP Last administered on 06/26/18 03:26; Start 06/25/18 at 15:45 Alprazolam (Xanax) 0.5 mg PRN Q8HRS PRN PO ANXIETY / AGITATION Last administered on 06/27/18 14:26; Start 06/25/18 at 15:45 Atorvastatin Calcium (Lipitor) 40 mg QHS PO Last administered on 07/02/18 19:48 ; Start 06/25/18 at 21:00 Budesonide (Pulmicort) 0.5 mg RTBID NEB Last administered on 07/02/18 05:43; Start 06/25/18 at 20:00 Carvedilol (Coreg) 3.125 mg BIDWMEALS PO Last administered on 07/02/18 16:30; Start 06/25/18 at 17:00 Divalproex Sodium (Depakote Er) 1,500 mg QHS PO Last administered on 07/02/18 19:48; Start 06/25/18 at 21:00 Duloxetine HCl (Cymbalta) 20 mg DAILY PO Last administered on 07/02/18 09:12; Start 06/26/18 at 09:00 Duloxetine HCl (Cymbalta) 30 mg DAILY PO Last administered on 07/02/18 07:40; Start 06/26/18 at 09:00 Acetaminophen/ Hydrocodone Bitart (Lortab 5/325) 1 tab PRN Q4HRS PRN PO PAIN; Start 06/25/18 at 16:00 Lactobacillus Rhamnosus (Culturelle) 1 cap BID PO Last administered on 19:47; Start 06/25/18 at 21:00 Pantoprazole Sodium (Protonix) 40 mg DAILYAC PO Last administered on 07/02/18 07:40; Start 06/26/18 at 07:30 Ranolazine (Ranexa) 1,000 mg BID PO Last administered on 07/02/18 19:50; Start 06/25/18 at 21:00 Senna/Docusate Sodium (Senna Plus) 1 tab PRN BID PRN PO CONSTIPATION; Start 06/28/18 at 19:00 Magnesium Citrate (Citroma) 296 ml 1X ONCE PO Last administered on 06/29/18 09 :10; Start 06/29/18 at 09:10; Stop 06/29/18 at 09:11; Status DC Active Scripts Active Reported NITROGLYCERIN SubLingual (Nitroglycerin) 0.4 Mg Tab.subl 0.4 Mg SL PRN Q5MIN PRN Cymbalta (Duloxetine Hcl) 20 Mg Capsule.dr 20 Mg PO DAILY Cardizem Tablet (Diltiazem Hcl) 30 Mg Tablet 30 Mg PO TID Tamsulosin Hcl 0.4 Mg Cap.er.24h 0.4 Mg PO DAILY Ranexa (Ranolazine) 500 Mg Tab.er.12h 1,000 Mg PO BID Protonix (Pantoprazole Sodium) 40 Mg Tablet.dr 40 Mg PO DAILYAC Ondansetron Odt (Ondansetron) 4 Mg Tab.rapdis 4 Mg PO PRN Q8HRS PRN Culturelle (Lactobacillus Rhamnosus Gg) 1 Each Capsule 1 Each PO BID Duoneb 0.5-3(2.5) Mg/3 Ml (Albuterol/Ipratropium) 3 Ml Ampul.neb 3 Ml NEB RTQID Humalog (Insulin Lispro) 100 Unit/1 Ml Insuln.pen 15 Unit SQ TIDAC Lantus Solostar (Insulin Glargine,Hum.rec.anlog) 100 Unit/1 Ml Insuln.pen 25 Unit SQ QHS Hydrocodone-Apap 5-325 (Hydrocodone Bit/Acetaminophen) 1 Each Tablet 1 Tab PO PRN Q4HRS PRN Clopidogrel (Clopidogrel Bisulfate) 75 Mg Tablet 75 Mg PO DAILY Carvedilol 3.125 Mg Tablet 3.125 Mg PO BIDWMEALS Budesonide 0.5 Mg/2 Ml Ampul.neb 0.5 Mg NEB RTBID Atorvastatin Calcium 40 Mg Tablet 40 Mg PO QHS Aspirin 325 Mg Tablet 325 Mg PO DAILY Alprazolam 0.5 Mg Tablet 0.5 Mg PO PRN Q8HRS PRN Acetaminophen 500 Mg Tablet 500 Mg PO PRN Q8HRS PRN Ferrous Sulfate 325 Mg Tablet 325 Mg PO DAILY Do not give within 2 hours of antacids or calcium products. Give with food. Divalproex Sodium Er (Divalproex Sodium) 500 Mg Tab.er.24h 1,500 Mg PO HS Give with food. Do NOT crush or chew. Vitamin D3 (Cholecalciferol (Vitamin D3)) 1,000 Unit Tablet 3,000 Unit PO DAILY Wellbutrin (Bupropion Hcl) 100 Mg Tablet 100 Mg PO BID@0900,1200 Cymbalta (Duloxetine Hcl) 30 Mg Capsule. 30 Mg PO DAILY I have reviewed the current psychotropics carefully including drug interactions. Risk benefit ratio favors no change other than as noted in my dictated progress note. Diagnosis: Problems: (1) Anxiety disorder (2) Depression (3) Bipolar 1 disorder (4) Difficulty controlling anger GRANT HYLTON MD Jul 02, 2018 20:27
[2018-07-03 01:08] VITALS: BP 138/74
[2018-07-03] MEDS: IPRATRPIUM/ALBUTEROL 0.5/2.5MG 3 ML NEBU. NEB SCH ×5 (05:35→20:49)
[2018-07-03] MEDS: BUDESONIDE 0.5 MG/2 ML NEBU NEB SCH ×3 (05:35→20:49)
[2018-07-03 06:08] VITALS: BP 123/74
[2018-07-03] MEDS: INSULIN LISPRO 300 UNITS/3 ML INSULN.PEN. SQ SCH ×4 (07:30→17:14)
[2018-07-03] MEDS: DULoxetine HCL 20 MG CAPSULE.DR PO SCH (07:57)
[2018-07-03] MEDS: ASPIRIN 325 MG TABLET PO SCH (07:57)
[2018-07-03] MEDS: DULoxetine HCL 30 MG CAPSULE.DR PO SCH (07:57)
[2018-07-03] MEDS: TAMSULOSIN 0.4 MG CAP.ER.24H. PO SCH (07:58)
[2018-07-03] MEDS: dilTIAZem HCL 30 MG TABLET PO SCH ×3 (07:58→20:17)
[2018-07-03] MEDS: buPROPion 100 MG TABLET PO SCH ×2 (07:58→12:34)
[2018-07-03] MEDS: CLOPIDOGREL BISULFATE 75 MG TABLET PO SCH (07:58)
[2018-07-03] MEDS: PANTOPRAZOLE 40 MG TABLET. PO SCH (07:58)
[2018-07-03] MEDS: CHOLECALCIFEROL (VITAMIN D3) 1,000 UNIT TABLET PO SCH (07:58)
[2018-07-03] MEDS: LACTOBACILLUS RHAMNOSUS GG 1 CAPSULE. PO SCH ×2 (07:58→20:15)
[2018-07-03] MEDS: CARVEDILOL 3.125 MG TABLET PO SCH ×2 (07:58→16:23)
[2018-07-03] MEDS: FERROUS SULFATE 325 MG TABLET. PO SCH (07:58)
[2018-07-03 08:00] LABS: BASO % 0 % (0-3); EOS % 1 % (0-3); HEMATOCRIT 28.6 % (39.0-53.0); HEMOGLOBIN 9.5 g/dL (13.0-17.5); LYMPH # 1.4 x10^3/uL (1.0-4.8); LYMPH % 46 % (24-48); MEAN CORPUSCULAR HEMOGLOBIN 31 pg (25-35); MEAN CORPUSCULAR HGB CONC 33 g/dL (31-37); MEAN CORPUSCULAR VOLUME 92 fL (79-100); MONO # 0.4 x10^3/uL (0.0-1.1); MONO % 12 % (0-9); NEUT # 1.2 x10^3uL (1.8-7.7); NEUT % 40 % (31-73); PLATELET COUNT 171 x10^3/uL (140-400); RED BLOOD COUNT 3.09 x10^6/uL (4.30-5.70); RED CELL DISTRIBUTION WIDTH 17.1 % (11.5-14.5)
[2018-07-03] MEDS: RANOLAZINE 500 MG TAB.ER.12H PO SCH ×2 (08:00→20:17)
[2018-07-03] MEDS ORDERED: FUROSEMIDE 40 MG TABLET PO ONE (08:45)
--- NOTE | 2018-07-03 09:40 | RAD ---
AP chest, 09/02/2018: HISTORY: Shortness of breath Comparison is made to a study from 06/24/2018. The patient is rotated to the right. There is been a previous median sternotomy. The heart remains at the upper limits of normal in size. The pulmonary vascularity is somewhat poorly defined. There are hazy bibasilar opacities suggesting infiltrate and possible pleural fluid layering posteriorly. The overall findings suggest congestive heart failure. IMPRESSION: Hazy basilar opacities suggesting infiltrate and pleural fluid due to congestive heart failure. Follow-up PA and lateral chest radiographs may be useful for further evaluation if clinically indicated. Electronically signed by: Nakul Guerra MD (07/03/2018 9:36 AM) [facility]
[2018-07-03 16:21] VITALS: BP 106/64
[2018-07-03] MEDS: SENNOSIDES/DOCUSATE 8.6/50MG TABLET. PO PRN (17:14)
[2018-07-03] MEDS: DIVALPROEX ER 500 MG TAB.ER.24H PO SCH (20:16)
[2018-07-03] MEDS: ALPRAZolam 0.5 MG TABLET PO PRN (20:16)
[2018-07-03] MEDS: INSULIN GLARGINE 300 UNITS/3 ML INSULN.PEN. SQ SCH (20:16)
[2018-07-03] MEDS: ATORVASTATIN CALCIUM 20 MG TABLET PO SCH (20:16)
[2018-07-03] MEDS: ISOSORBIDE MONONITRATE ER 30 MG TAB.ER.24H PO SCH (20:17)
--- NOTE | 2018-07-03 20:53 | PDOC ---
Exam Note: Warner Note: Please also refer to the separate dictated note~for this date of service dictated separately.~Patient seen individually. Discussed the patient with Nursing staff reviewed the chart.~Reviewed interim history and current functioning. Reviewed vital signs,~Labs/ Radiology~and current medications noted below. Continue current treatment with the changes noted in the dictated addendum note Assessment: Vital Signs: Vital Signs Date Time Temp Pulse Resp B/P (MAP) Pulse Ox O2 Delivery O2 Flow Rate FiO2 07/03/18 20:17 67 106/64 07/03/18 16:21 97.2 20 94 2.0 07/03/18 15:41 Nasal Cannula I&O Intake and Output 07/03/18 07:00 Intake Total 480 ml Output Total 1875 ml Balance -1395 ml Intake Oral 480 ml Output Urine Total 1875 ml Labs: Laboratory Tests Test 07/03/18 07:10 07/03/18 07:18 07/03/18 11:48 07/03/18 16:26 White Blood Count 3.0 x10^3/uL (4.0-11.0) L Red Blood Count 3.09 x10^6/uL (4.30-5.70) L Hemoglobin 9.5 g/dL (13.0-17.5) L Hematocrit 28.6 % (39.0-53.0) L Mean Corpuscular Volume 92 fL (79-100) Mean Corpuscular Hemoglobin 31 pg (25-35) Mean Corpuscular Hemoglobin Concent 33 g/dL (31-37) Red Cell Distribution Width 17.1 % (11.5-14.5) H Platelet Count 171 x10^3/uL (140-400) Neutrophils (%) (Auto) 40 % (31-73) Lymphocytes (%) (Auto) 46 % (24-48) Monocytes (%) (Auto) 12 % (0-9) H Eosinophils (%) (Auto) 1 % (0-3) Basophils (%) (Auto) 0 % (0-3) Neutrophils # (Auto) 1.2 x10^3uL (1.8-7.7) L Lymphocytes # (Auto) 1.4 x10^3/uL (1.0-4.8) Monocytes # (Auto) 0.4 x10^3/uL (0.0-1.1) Eosinophils # (Auto) 0.0 x10^3/uL (0.0-0.7) Basophils # (Auto) 0.0 x10^3/uL (0.0-0.2) Troponin I Quantitative 0.027 ng/mL (0-0.055) HL-Urx-A-Type Natriuretic Peptide 6631 pg/mL (0-124) H Glucose (Fingerstick) 98 mg/dL (70-99) 151 mg/dL (70-99) H 116 mg/dL (70-99) H Test 07/03/18 19:16 Glucose (Fingerstick) 199 mg/dL (70-99) H Current Medications: Meds: Current Medications Acetaminophen (Tylenol) 650 mg PRN Q6HRS PRN PO PAIN / TEMP; Start 06/25/18 at 15:15; Stop 06/25/18 at 15:47; Status DC Multi-Ingredient Ointment (Analgesic [place]) 1 georgina PRN QID PRN TP MUSCLE PAIN; Start 06/25/18 at 15:15 Al Hydroxide/Mg Hydroxide (Mylanta Plus Xs) 15 ml PRN AFTMEALHC PRN PO DYSPEPSIA; Start 06/25/18 at 15:15 Magnesium Hydroxide (Milk Of Magnesia) 2,400 mg PRN QHS PRN PO CONSTIPATION Last administered on 06/30/18at 12:30; Start 06/25/18 at 15:15 Aspirin (Michelle Aspirin) 325 mg DAILY PO Last administered on 07/03/18at 07:57; Start 06/26/18 at 09:00 Bupropion HCl (Wellbutrin) 100 mg BID@0900,1200 PO Last administered on at 12:34; Start 06/26/18 at 09:00 Vitamin D (Vitamin D3) 3,000 unit DAILY PO Last administered on 07/03/18at 07:58 ; Start 06/26/18 at 09:00 Clopidogrel Bisulfate (Plavix) 75 mg DAILY PO Last administered on 07/03/18at 07 :58; Start 06/26/18 at 09:00 Diltiazem HCl (Cardizem) 30 mg TID PO Last administered on 07/03/18at 12:35; Start 06/25/18 at 21:00 Ferrous Sulfate (Feosol) 325 mg DAILY PO Last administered on 07/03/18 07:58; Start 06/26/18 at 09:00 Insulin Glargine (Lantus) 25 units QHS SQ Last administered on 07/03/18 20:16 ; Start 06/25/18 at 21:00 Insulin Human Lispro (HumaLOG) 15 units TIDAC SQ Last administered on 07/02/18 12:03; Start 06/25/18 at 16:30 Albuterol/ Ipratropium (Duoneb) 3 ml RTQID NEB Last administered on 07/03/18 20:01; Start 06/25/18 at 16:00 Nitroglycerin (Nitrostat) 0.4 mg PRN Q5MIN PRN SL CHEST PAIN Last administered on 06/26/18 04:24; Start 06/25/18 at 15:15 Ondansetron HCl (Zofran Odt) 4 mg PRN Q8HRS PRN PO NAUSEA/VOMITING; Start at 16:00 Tamsulosin HCl (Flomax) 0.4 mg DAILY PO Last administered on 07/03/18 07:58; Start 06/26/18 at 09:00 Acetaminophen (Tylenol) 500 mg PRN Q8HRS PRN PO PAIN / TEMP Last administered on 06/26/18 03:26; Start 06/25/18 at 15:45 Alprazolam (Xanax) 0.5 mg PRN Q8HRS PRN PO ANXIETY / AGITATION Last administered on 07/03/18 20:16; Start 06/25/18 at 15:45 Atorvastatin Calcium (Lipitor) 40 mg QHS PO Last administered on 07/03/18 20: 16; Start 06/25/18 at 21:00 Budesonide (Pulmicort) 0.5 mg RTBID NEB Last administered on 07/03/18 09:57; Start 06/25/18 at 20:00 Carvedilol (Coreg) 3.125 mg BIDWMEALS PO Last administered on 07/03/18 16:23; Start 06/25/18 at 17:00 Divalproex Sodium (Depakote Er) 1,500 mg QHS PO Last administered on 07/03/18 20:16; Start 06/25/18 at 21:00 Duloxetine HCl (Cymbalta) 20 mg DAILY PO Last administered on 07/03/18at 07:57; Start 06/26/18 at 09:00 Duloxetine HCl (Cymbalta) 30 mg DAILY PO Last administered on 07/03/18at 07:57; Start 06/26/18 at 09:00 Acetaminophen/ Hydrocodone Bitart (Lortab 5/325) 1 tab PRN Q4HRS PRN PO PAIN; Start 06/25/18 at 16:00 Lactobacillus Rhamnosus (Culturelle) 1 cap BID PO Last administered on at 20:15; Start 06/25/18 at 21:00 Pantoprazole Sodium (Protonix) 40 mg DAILYAC PO Last administered on 07/03/18at 07:58; Start 06/26/18 at 07:30 Ranolazine (Ranexa) 1,000 mg BID PO Last administered on 07/03/18at 20:17; Start 06/25/18 at 21:00 Senna/Docusate Sodium (Senna Plus) 1 tab PRN BID PRN PO CONSTIPATION Last administered on 07/03/18at 17:14; Start 06/28/18 at 19:00 Magnesium Citrate (Citroma) 296 ml 1X ONCE PO Last administered on 06/29/18at 09 :10; Start 06/29/18 at 09:10; Stop 06/29/18 at 09:11; Status DC Furosemide (Lasix) 40 mg 1X ONCE PO Last administered on 07/03/18at 09:25; Start 07/03/18 at 08:45; Stop 07/03/18 at 08:52; Status DC Furosemide (Lasix) 40 mg DAILY PO ; Start 07/04/18 at 09:00 Isosorbide Mononitrate (Imdur) 30 mg QHS PO Last administered on 07/03/18at 20: 17; Start 07/03/18 at 21:00 Active Scripts Active Reported NITROGLYCERIN SubLingual (Nitroglycerin) 0.4 Mg Tab.subl 0.4 Mg SL PRN Q5MIN PRN Cymbalta (Duloxetine Hcl) 20 Mg Capsule.dr 20 Mg PO DAILY Cardizem Tablet (Diltiazem Hcl) 30 Mg Tablet 30 Mg PO TID Tamsulosin Hcl 0.4 Mg Cap.er.24h 0.4 Mg PO DAILY Ranexa (Ranolazine) 500 Mg Tab.er.12h 1,000 Mg PO BID Protonix (Pantoprazole Sodium) 40 Mg Tablet.dr 40 Mg PO DAILYAC Ondansetron Odt (Ondansetron) 4 Mg Tab.rapdis 4 Mg PO PRN Q8HRS PRN Culturelle (Lactobacillus Rhamnosus Gg) 1 Each Capsule 1 Each PO BID Duoneb 0.5-3(2.5) Mg/3 Ml (Albuterol/Ipratropium) 3 Ml Ampul.neb 3 Ml NEB RTQID Humalog (Insulin Lispro) 100 Unit/1 Ml Insuln.pen 15 Unit SQ TIDAC Lantus Solostar (Insulin Glargine,Hum.rec.anlog) 100 Unit/1 Ml Insuln.pen 25 Unit SQ QHS Hydrocodone-Apap 5-325 (Hydrocodone Bit/Acetaminophen) 1 Each Tablet 1 Tab PO PRN Q4HRS PRN Clopidogrel (Clopidogrel Bisulfate) 75 Mg Tablet 75 Mg PO DAILY Carvedilol 3.125 Mg Tablet 3.125 Mg PO BIDWMEALS Budesonide 0.5 Mg/2 Ml Ampul.neb 0.5 Mg NEB RTBID Atorvastatin Calcium 40 Mg Tablet 40 Mg PO QHS Aspirin 325 Mg Tablet 325 Mg PO DAILY Alprazolam 0.5 Mg Tablet 0.5 Mg PO PRN Q8HRS PRN Acetaminophen 500 Mg Tablet 500 Mg PO PRN Q8HRS PRN Ferrous Sulfate 325 Mg Tablet 325 Mg PO DAILY Do not give within 2 hours of antacids or calcium products. Give with food. Divalproex Sodium Er (Divalproex Sodium) 500 Mg Tab.er.24h 1,500 Mg PO HS Give with food. Do NOT crush or chew. Vitamin D3 (Cholecalciferol (Vitamin D3)) 1,000 Unit Tablet 3,000 Unit PO DAILY Wellbutrin (Bupropion Hcl) 100 Mg Tablet 100 Mg PO BID@0900,1200 Cymbalta (Duloxetine Hcl) 30 Mg Capsule. 30 Mg PO DAILY I have reviewed the current psychotropics carefully including drug interactions. Risk benefit ratio favors no change other than as noted in my dictated progress note. Diagnosis: Problems: (1) Anxiety disorder (2) Depression (3) Bipolar 1 disorder (4) Difficulty controlling anger GRANT HYLTON MD Jul 03, 2018 20:53
--- NOTE | 2018-07-03 20:57 | PN ---
DATE: 07/01/2018 PSYCHIATRIC PROGRESS NOTE This is a late entry of 07/01/2018 covers elements not covered in my initial note. SUBJECTIVE: I met with the patient in the evening. The patient slept 7-3/4 hours previous evening attending physical therapy and occupational therapy, compliant with medications. May benefit from transfer to skilled unit once he is psychiatrically stable. REVIEW OF SYSTEMS: Ambulation impaired, in wheelchair. No CV, , pulmonary, eye, ENT system symptoms on review. MENTAL STATUS EXAM: Oriented reasonably. Speech has some latency, coherent. Abstraction fair, computation impaired, language function intact, attention span short. Mood and affect, less depressed, less withdrawn, less labile, showing improvement. LABORATORY DATA: Labs reviewed. IMPRESSION: Unchanged from initial note. PLAN: No change from initial note. May transition to skilled care on Friday. MAN Rick HYLTON MD DR: GROVER/joselyn JOB#: [id number] / [id number]
--- NOTE | 2018-07-03 21:03 | PN ---
DATE: 07/02/2018 PSYCHIATRIC PROGRESS NOTE This late entry 07/02/2018 covers elements not covered in my initial note. SUBJECTIVE: I met with the patient in the evening and staffed at a treatment team meeting with the entire team in the morning. The patient has slept 6-1/2 hours previous evening, cooperative with medications. Oral intake somewhat poor. REVIEW OF SYSTEMS: Ambulation impaired, in wheelchair. No CV, , pulmonary, eye, ENT system symptoms on review. MENTAL STATUS EXAM: Reasonably oriented. Speech has some latency, coherent, less pressured. Abstraction fair, computation impaired, language function intact, attention span short. Mood and affect less labile. LABORATORY DATA: Reviewed. IMPRESSION: Unchanged from initial note. PLAN: No change from initial note. Transition to skilled care on 07/03/2018. MAN Rick HYLTON MD DR: GROVER/joselyn JOB#: [id number] / [id number]
[2018-07-04] MEDS: BUDESONIDE 0.5 MG/2 ML NEBU NEB SCH ×2 (05:44→20:41)
[2018-07-04] MEDS: IPRATRPIUM/ALBUTEROL 0.5/2.5MG 3 ML NEBU. NEB SCH ×3 (05:44→20:41)
[2018-07-04 06:48] VITALS: BP 132/77
[2018-07-04] MEDS: DULoxetine HCL 20 MG CAPSULE.DR PO SCH (08:05)
[2018-07-04] MEDS: RANOLAZINE 500 MG TAB.ER.12H PO SCH ×2 (08:05→19:53)
[2018-07-04] MEDS: ASPIRIN 325 MG TABLET PO SCH (08:06)
[2018-07-04] MEDS: DULoxetine HCL 30 MG CAPSULE.DR PO SCH (08:06)
[2018-07-04] MEDS: LACTOBACILLUS RHAMNOSUS GG 1 CAPSULE. PO SCH ×2 (08:06→19:48)
[2018-07-04] MEDS: CLOPIDOGREL BISULFATE 75 MG TABLET PO SCH (08:06)
[2018-07-04] MEDS: TAMSULOSIN 0.4 MG CAP.ER.24H. PO SCH (08:06)
[2018-07-04] MEDS: PANTOPRAZOLE 40 MG TABLET. PO SCH (08:06)
[2018-07-04] MEDS: CARVEDILOL 3.125 MG TABLET PO SCH ×2 (08:07→17:11)
[2018-07-04] MEDS: buPROPion 100 MG TABLET PO SCH ×2 (08:07→12:54)
[2018-07-04] MEDS: CHOLECALCIFEROL (VITAMIN D3) 1,000 UNIT TABLET PO SCH (08:07)
[2018-07-04] MEDS: FERROUS SULFATE 325 MG TABLET. PO SCH (08:08)
[2018-07-04] MEDS: dilTIAZem HCL 30 MG TABLET PO SCH ×3 (08:08→19:49)
[2018-07-04] MEDS: FUROSEMIDE 40 MG TABLET PO SCH (08:10)
[2018-07-04] MEDS: INSULIN LISPRO 300 UNITS/3 ML INSULN.PEN. SQ SCH ×3 (08:12→17:12)
[2018-07-04 16:44] VITALS: BP 117/77
[2018-07-04 19:45] VITALS: BP 124/58
[2018-07-04] MEDS: ISOSORBIDE MONONITRATE ER 30 MG TAB.ER.24H PO SCH (19:48)
[2018-07-04] MEDS: DIVALPROEX ER 500 MG TAB.ER.24H PO SCH (19:49)
[2018-07-04] MEDS: ATORVASTATIN CALCIUM 20 MG TABLET PO SCH (19:49)
[2018-07-04] MEDS: INSULIN GLARGINE 300 UNITS/3 ML INSULN.PEN. SQ SCH (19:54)
[2018-07-04] MEDS ORDERED: INSULIN GLARGINE 300 UNITS/3 ML INSULN.PEN. SQ ONE (20:00)
[2018-07-04 21:13] VITALS: BP 96/54
--- NOTE | 2018-07-04 21:20 | EKG ---
[address] [address] Test Date: 2018-07-04 Test Time: 21:06:22 Pat Name: BURTON RUSSELL Department: Room: [address] [place] [address] Gender: M [employer] Operator: : 1945 Requested By: FAY CRAWFORD Order Number: [id number] Reading MD: Measurements Intervals [place] Rate: 67 P: 26 [place]: 234 QRS: -13 QRSD: 128 T: 56 QT: 464 QTc: 494 Interpretive Statements SINUS RHYTHM PROLONGED [place] INTERVAL LEFTWARD AXIS LOW LIMB LEAD VOLTAGE NON SPECIFIC INTRAVENTRICULAR BLOCK ABNORMAL ECG RI6.01 Unconfirmed report No previous ECG available for comparison
[2018-07-04 21:33] LABS: BASO % 1 % (0-3); EOS % 1 % (0-3); HEMATOCRIT 29.5 % (39.0-53.0); HEMOGLOBIN 9.7 g/dL (13.0-17.5); LYMPH # 1.6 x10^3/uL (1.0-4.8); LYMPH % 48 % (24-48); MEAN CORPUSCULAR HEMOGLOBIN 30 pg (25-35); MEAN CORPUSCULAR HGB CONC 33 g/dL (31-37); MEAN CORPUSCULAR VOLUME 92 fL (79-100); MONO # 0.4 x10^3/uL (0.0-1.1); MONO % 12 % (0-9); NEUT # 1.2 x10^3uL (1.8-7.7); NEUT % 38 % (31-73); PLATELET COUNT 168 x10^3/uL (140-400); RED BLOOD COUNT 3.21 x10^6/uL (4.30-5.70); RED CELL DISTRIBUTION WIDTH 17.5 % (11.5-14.5); WHITE BLOOD COUNT 3.3 x10^3/uL (4.0-11.0)
[2018-07-04 22:06] LABS: ALBUMIN 2.5 g/dL (3.4-5.0); ALBUMIN/GLOBULIN RATIO 0.7 (1.0-1.7); CALCIUM 8.9 mg/dL (8.5-10.1); CREATININE 0.9 mg/dL (0.7-1.3); GFR 82.5; POTASSIUM 3.8 mmol/L (3.5-5.1); TOTAL BILIRUBIN 0.5 mg/dL (0.2-1.0); TOTAL PROTEIN 6.2 g/dL (6.4-8.2)
[2018-07-04] MEDS: MAGNESIUM HYDROXIDE 2,400 MG/30 ML ORAL.SUSP. PO PRN (22:43)
--- NOTE | 2018-07-04 23:10 | PDOC ---
Exam Note: Warner Note: Please also refer to the separate dictated note~for this date of service dictated separately.~Patient seen individually. Discussed the patient with Nursing staff reviewed the chart.~Reviewed interim history and current functioning. Reviewed vital signs,~Labs/ Radiology~and current medications noted below. Continue current treatment with the changes noted in the dictated addendum note Assessment: Vital Signs: Vital Signs Date Time Temp Pulse Resp B/P (MAP) Pulse Ox O2 Delivery O2 Flow Rate FiO2 07/04/18 21:13 67 96/54 (68) 95 07/04/18 20:40 Room Air 07/04/18 16:44 98.7 16 07/04/18 16:14 2.0 I&O Intake and Output 07/04/18 07:00 Intake Total 600 ml Output Total 2400 ml Balance -1800 ml Intake Oral 600 ml Output Urine Total 2400 ml Labs: Laboratory Tests Test 07/04/18 07:45 07/04/18 11:46 07/04/18 17:09 07/04/18 19:23 Glucose (Fingerstick) 106 mg/dL (70-99) H 99 mg/dL (70-99) 118 mg/dL (70-99) H 88 mg/dL (70-99) Test 07/04/18 21:10 White Blood Count 3.3 x10^3/uL (4.0-11.0) L Red Blood Count 3.21 x10^6/uL (4.30-5.70) L Hemoglobin 9.7 g/dL (13.0-17.5) L Hematocrit 29.5 % (39.0-53.0) L Mean Corpuscular Volume 92 fL (79-100) Mean Corpuscular Hemoglobin 30 pg (25-35) Mean Corpuscular Hemoglobin Concent 33 g/dL (31-37) Red Cell Distribution Width 17.5 % (11.5-14.5) H Platelet Count 168 x10^3/uL (140-400) Neutrophils (%) (Auto) 38 % (31-73) Lymphocytes (%) (Auto) 48 % (24-48) Monocytes (%) (Auto) 12 % (0-9) H Eosinophils (%) (Auto) 1 % (0-3) Basophils (%) (Auto) 1 % (0-3) Neutrophils # (Auto) 1.2 x10^3uL (1.8-7.7) L Lymphocytes # (Auto) 1.6 x10^3/uL (1.0-4.8) Monocytes # (Auto) 0.4 x10^3/uL (0.0-1.1) Eosinophils # (Auto) 0.0 x10^3/uL (0.0-0.7) Basophils # (Auto) 0.0 x10^3/uL (0.0-0.2) Sodium Level 139 mmol/L (136-145) Potassium Level 3.8 mmol/L (3.5-5.1) Chloride Level 104 mmol/L (98-107) Carbon Dioxide Level 30 mmol/L (21-32) Anion Gap 5 (6-14) L Blood Urea Nitrogen 14 mg/dL (8-26) Creatinine 0.9 mg/dL (0.7-1.3) Estimated GFR (Cockcroft-Gault) 82.5 BUN/Creatinine Ratio 16 (6-20) Glucose Level 71 mg/dL (70-99) Lactic Acid Level 1.5 mmol/L (0.4-2.0) Calcium Level 8.9 mg/dL (8.5-10.1) Total Bilirubin 0.5 mg/dL (0.2-1.0) Aspartate Amino Transferase (AST) 8 U/L (15-37) L Alanine Aminotransferase (ALT) 9 U/L (16-63) L Alkaline Phosphatase 47 U/L (46-116) Creatine Kinase 18 U/L (39-308) L Creatine Kinase MB (Mass) 1.2 ng/mL (0.0-3.6) Creatine Kinase MB Relative Index 6.7 % (0-4) H Troponin I Quantitative < 0.017 ng/mL (0-0.055) HC-Zau-I-Type Natriuretic Peptide 7520 pg/mL (0-124) H Total Protein 6.2 g/dL (6.4-8.2) L Albumin 2.5 g/dL (3.4-5.0) L Albumin/Globulin Ratio 0.7 (1.0-1.7) L Current Medications: Meds: Current Medications Acetaminophen (Tylenol) 650 mg PRN Q6HRS PRN PO PAIN / TEMP; Start 06/25/18 at 15:15; Stop 06/25/18 at 15:47; Status DC Multi-Ingredient Ointment (Analgesic [place]) 1 georgina PRN QID PRN TP MUSCLE PAIN; Start 06/25/18 at 15:15 Al Hydroxide/Mg Hydroxide (Mylanta Plus Xs) 15 ml PRN AFTMEALHC PRN PO DYSPEPSIA; Start 06/25/18 at 15:15 Magnesium Hydroxide (Milk Of Magnesia) 2,400 mg PRN QHS PRN PO CONSTIPATION Last administered on 07/04/18 22:43; Start 06/25/18 at 15:15 Aspirin (Michelle Aspirin) 325 mg DAILY PO Last administered on 07/04/18 08:06; Start 06/26/18 at 09:00 Bupropion HCl (Wellbutrin) 100 mg BID@0900,1200 PO Last administered on 12:54; Start 06/26/18 at 09:00 Vitamin D (Vitamin D3) 3,000 unit DAILY PO Last administered on 07/04/18 08:07 ; Start 06/26/18 at 09:00 Clopidogrel Bisulfate (Plavix) 75 mg DAILY PO Last administered on 07/04/18 08 :06; Start 06/26/18 at 09:00 Diltiazem HCl (Cardizem) 30 mg TID PO Last administered on 07/04/18 19:49; Start 06/25/18 at 21:00 Ferrous Sulfate (Feosol) 325 mg DAILY PO Last administered on 07/04/18 08:08; Start 06/26/18 at 09:00 Insulin Glargine (Lantus) 25 units QHS SQ Last administered on 07/03/18 20:16 ; Start 06/25/18 at 21:00 Insulin Human Lispro (HumaLOG) 15 units TIDAC SQ Last administered on 17:12; Start 06/25/18 at 16:30 Albuterol/ Ipratropium (Duoneb) 3 ml RTQID NEB Last administered on 07/04/18 20:41; Start 06/25/18 at 16:00 Nitroglycerin (Nitrostat) 0.4 mg PRN Q5MIN PRN SL CHEST PAIN Last administered on 06/26/18 04:24; Start 06/25/18 at 15:15 Ondansetron HCl (Zofran Odt) 4 mg PRN Q8HRS PRN PO NAUSEA/VOMITING; Start at 16:00 Tamsulosin HCl (Flomax) 0.4 mg DAILY PO Last administered on 07/04/18 08:06; Start 06/26/18 at 09:00 Acetaminophen (Tylenol) 500 mg PRN Q8HRS PRN PO PAIN / TEMP Last administered on 06/26/18 03:26; Start 06/25/18 at 15:45 Alprazolam (Xanax) 0.5 mg PRN Q8HRS PRN PO ANXIETY / AGITATION Last administered on 07/03/18 20:16; Start 06/25/18 at 15:45 Atorvastatin Calcium (Lipitor) 40 mg QHS PO Last administered on 07/04/18 19: 49; Start 06/25/18 at 21:00 Budesonide (Pulmicort) 0.5 mg RTBID NEB Last administered on 07/04/18 20:41; Start 06/25/18 at 20:00 Carvedilol (Coreg) 3.125 mg BIDWMEALS PO Last administered on 07/04/18 17:11; Start 06/25/18 at 17:00 Divalproex Sodium (Depakote Er) 1,500 mg QHS PO Last administered on 07/04/18 19:49; Start 06/25/18 at 21:00 Duloxetine HCl (Cymbalta) 20 mg DAILY PO Last administered on 07/04/18 08:05; Start 06/26/18 at 09:00 Duloxetine HCl (Cymbalta) 30 mg DAILY PO Last administered on 07/04/18 08:06; Start 06/26/18 at 09:00 Acetaminophen/ Hydrocodone Bitart (Lortab 5/325) 1 tab PRN Q4HRS PRN PO PAIN; Start 06/25/18 at 16:00 Lactobacillus Rhamnosus (Culturelle) 1 cap BID PO Last administered on 19:48; Start 06/25/18 at 21:00 Pantoprazole Sodium (Protonix) 40 mg DAILYAC PO Last administered on 07/04/18 08:06; Start 06/26/18 at 07:30 Ranolazine (Ranexa) 1,000 mg BID PO Last administered on 07/04/18at 19:53; Start 06/25/18 at 21:00 Senna/Docusate Sodium (Senna Plus) 1 tab PRN BID PRN PO CONSTIPATION Last administered on 07/03/18at 17:14; Start 06/28/18 at 19:00 Magnesium Citrate (Citroma) 296 ml 1X ONCE PO Last administered on 06/29/18at 09 :10; Start 06/29/18 at 09:10; Stop 06/29/18 at 09:11; Status DC Furosemide (Lasix) 40 mg 1X ONCE PO Last administered on 07/03/18at 09:25; Start 07/03/18 at 08:45; Stop 07/03/18 at 08:52; Status DC Furosemide (Lasix) 40 mg DAILY PO Last administered on 07/04/18at 08:10; Start 07/04/18 at 09:00 Isosorbide Mononitrate (Imdur) 30 mg QHS PO Last administered on 07/04/18at 19: 48; Start 07/03/18 at 21:00 Insulin Glargine (Lantus) 10 units 1X ONCE SQ Last administered on 07/04/18at 20:00; Start 07/04/18 at 20:00; Stop 07/04/18 at 20:01; Status DC Active Scripts Active Reported NITROGLYCERIN SubLingual (Nitroglycerin) 0.4 Mg Tab.subl 0.4 Mg SL PRN Q5MIN PRN Cymbalta (Duloxetine Hcl) 20 Mg Capsule.dr 20 Mg PO DAILY Cardizem Tablet (Diltiazem Hcl) 30 Mg Tablet 30 Mg PO TID Tamsulosin Hcl 0.4 Mg Cap.er.24h 0.4 Mg PO DAILY Ranexa (Ranolazine) 500 Mg Tab.er.12h 1,000 Mg PO BID Protonix (Pantoprazole Sodium) 40 Mg Tablet.dr 40 Mg PO DAILYAC Ondansetron Odt (Ondansetron) 4 Mg Tab.rapdis 4 Mg PO PRN Q8HRS PRN Culturelle (Lactobacillus Rhamnosus Gg) 1 Each Capsule 1 Each PO BID Duoneb 0.5-3(2.5) Mg/3 Ml (Albuterol/Ipratropium) 3 Ml Ampul.neb 3 Ml NEB RTQID Humalog (Insulin Lispro) 100 Unit/1 Ml Insuln.pen 15 Unit SQ TIDAC Lantus Solostar (Insulin Glargine,Hum.rec.anlog) 100 Unit/1 Ml Insuln.pen 25 Unit SQ QHS Hydrocodone-Apap 5-325 (Hydrocodone Bit/Acetaminophen) 1 Each Tablet 1 Tab PO PRN Q4HRS PRN Clopidogrel (Clopidogrel Bisulfate) 75 Mg Tablet 75 Mg PO DAILY Carvedilol 3.125 Mg Tablet 3.125 Mg PO BIDWMEALS Budesonide 0.5 Mg/2 Ml Ampul.neb 0.5 Mg NEB RTBID Atorvastatin Calcium 40 Mg Tablet 40 Mg PO QHS Aspirin 325 Mg Tablet 325 Mg PO DAILY Alprazolam 0.5 Mg Tablet 0.5 Mg PO PRN Q8HRS PRN Acetaminophen 500 Mg Tablet 500 Mg PO PRN Q8HRS PRN Ferrous Sulfate 325 Mg Tablet 325 Mg PO DAILY Do not give within 2 hours of antacids or calcium products. Give with food. Divalproex Sodium Er (Divalproex Sodium) 500 Mg Tab.er.24h 1,500 Mg PO HS Give with food. Do NOT crush or chew. Vitamin D3 (Cholecalciferol (Vitamin D3)) 1,000 Unit Tablet 3,000 Unit PO DAILY Wellbutrin (Bupropion Hcl) 100 Mg Tablet 100 Mg PO BID@0900,1200 Cymbalta (Duloxetine Hcl) 30 Mg Capsule. 30 Mg PO DAILY I have reviewed the current psychotropics carefully including drug interactions. Risk benefit ratio favors no change other than as noted in my dictated progress note. Diagnosis: Problems: (1) Anxiety disorder (2) Depression (3) Bipolar 1 disorder (4) Difficulty controlling anger GRANT HYLTON MD Jul 04, 2018 23:10
[2018-07-05 03:48] VITALS: BP 117/54
[2018-07-05] MEDS: NITROGLYCERIN SUBLINGUAL 0.4 MG BOTTLE OF 25. SL PRN (03:48)
[2018-07-05] MEDS: IPRATRPIUM/ALBUTEROL 0.5/2.5MG 3 ML NEBU. NEB SCH ×4 (05:29→21:26)
[2018-07-05] MEDS: PANTOPRAZOLE 40 MG TABLET. PO SCH (07:30)
[2018-07-05] MEDS: CLOPIDOGREL BISULFATE 75 MG TABLET PO SCH (08:01)
[2018-07-05] MEDS: ASPIRIN 325 MG TABLET PO SCH (08:01)
[2018-07-05] MEDS: buPROPion 100 MG TABLET PO SCH ×2 (08:01→12:41)
[2018-07-05] MEDS: DULoxetine HCL 20 MG CAPSULE.DR PO SCH (08:01)
[2018-07-05] MEDS: CHOLECALCIFEROL (VITAMIN D3) 1,000 UNIT TABLET PO SCH (08:02)
[2018-07-05] MEDS: FUROSEMIDE 40 MG TABLET PO SCH (08:02)
[2018-07-05] MEDS: FERROUS SULFATE 325 MG TABLET. PO SCH (08:02)
[2018-07-05] MEDS: dilTIAZem HCL 30 MG TABLET PO SCH ×3 (08:02→20:40)
[2018-07-05] MEDS: DULoxetine HCL 30 MG CAPSULE.DR PO SCH (08:03)
[2018-07-05] MEDS: CARVEDILOL 3.125 MG TABLET PO SCH ×2 (08:03→17:37)
[2018-07-05] MEDS: TAMSULOSIN 0.4 MG CAP.ER.24H. PO SCH (08:03)
[2018-07-05] MEDS: LACTOBACILLUS RHAMNOSUS GG 1 CAPSULE. PO SCH ×2 (08:03→20:39)
[2018-07-05] MEDS: RANOLAZINE 500 MG TAB.ER.12H PO SCH ×2 (08:04→20:41)
[2018-07-05] MEDS: INSULIN LISPRO 300 UNITS/3 ML INSULN.PEN. SQ SCH ×3 (08:05→16:30)
[2018-07-05] MEDS: BUDESONIDE 0.5 MG/2 ML NEBU NEB SCH ×2 (11:06→21:25)
[2018-07-05 16:06] VITALS: BP 121/63
--- NOTE | 2018-07-05 20:11 | PDOC ---
Exam Note: Warner Note: Please also refer to the separate dictated note~for this date of service dictated separately.~Patient seen individually. Discussed the patient with Nursing staff reviewed the chart.~Reviewed interim history and current functioning. Reviewed vital signs,~Labs/ Radiology~and current medications noted below. Continue current treatment with the changes noted in the dictated addendum note Assessment: Vital Signs: Vital Signs Date Time Temp Pulse Resp B/P (MAP) Pulse Ox O2 Delivery O2 Flow Rate FiO2 07/05/18 17:37 70 121/63 07/05/18 16:11 95 Room Air 07/05/18 16:06 97.6 22 2.0 I&O Intake and Output 07/05/18 06:59 Intake Total 600 ml Balance 600 ml Intake Oral 600 ml Labs: Laboratory Tests Test 07/04/18 21:10 07/05/18 07:32 07/05/18 12:21 White Blood Count 3.3 x10^3/uL (4.0-11.0) L Red Blood Count 3.21 x10^6/uL (4.30-5.70) L Hemoglobin 9.7 g/dL (13.0-17.5) L Hematocrit 29.5 % (39.0-53.0) L Mean Corpuscular Volume 92 fL (79-100) Mean Corpuscular Hemoglobin 30 pg (25-35) Mean Corpuscular Hemoglobin Concent 33 g/dL (31-37) Red Cell Distribution Width 17.5 % (11.5-14.5) H Platelet Count 168 x10^3/uL (140-400) Neutrophils (%) (Auto) 38 % (31-73) Lymphocytes (%) (Auto) 48 % (24-48) Monocytes (%) (Auto) 12 % (0-9) H Eosinophils (%) (Auto) 1 % (0-3) Basophils (%) (Auto) 1 % (0-3) Neutrophils # (Auto) 1.2 x10^3uL (1.8-7.7) L Lymphocytes # (Auto) 1.6 x10^3/uL (1.0-4.8) Monocytes # (Auto) 0.4 x10^3/uL (0.0-1.1) Eosinophils # (Auto) 0.0 x10^3/uL (0.0-0.7) Basophils # (Auto) 0.0 x10^3/uL (0.0-0.2) Sodium Level 139 mmol/L (136-145) Potassium Level 3.8 mmol/L (3.5-5.1) Chloride Level 104 mmol/L (98-107) Carbon Dioxide Level 30 mmol/L (21-32) Anion Gap 5 (6-14) L Blood Urea Nitrogen 14 mg/dL (8-26) Creatinine 0.9 mg/dL (0.7-1.3) Estimated GFR (Cockcroft-Gault) 82.5 BUN/Creatinine Ratio 16 (6-20) Glucose Level 71 mg/dL (70-99) Lactic Acid Level 1.5 mmol/L (0.4-2.0) Calcium Level 8.9 mg/dL (8.5-10.1) Total Bilirubin 0.5 mg/dL (0.2-1.0) Aspartate Amino Transferase (AST) 8 U/L (15-37) L Alanine Aminotransferase (ALT) 9 U/L (16-63) L Alkaline Phosphatase 47 U/L (46-116) Creatine Kinase 18 U/L (39-308) L Creatine Kinase MB (Mass) 1.2 ng/mL (0.0-3.6) Creatine Kinase MB Relative Index 6.7 % (0-4) H Troponin I Quantitative < 0.017 ng/mL (0-0.055) LO-Tlo-Q-Type Natriuretic Peptide 7520 pg/mL (0-124) H Total Protein 6.2 g/dL (6.4-8.2) L Albumin 2.5 g/dL (3.4-5.0) L Albumin/Globulin Ratio 0.7 (1.0-1.7) L Glucose (Fingerstick) 93 mg/dL (70-99) 150 mg/dL (70-99) H Current Medications: Meds: Current Medications Acetaminophen (Tylenol) 650 mg PRN Q6HRS PRN PO PAIN / TEMP; Start 06/25/18 at 15:15; Stop 06/25/18 at 15:47; Status DC Multi-Ingredient Ointment (Analgesic [place]) 1 georgina PRN QID PRN TP MUSCLE PAIN; Start 06/25/18 at 15:15 Al Hydroxide/Mg Hydroxide (Mylanta Plus Xs) 15 ml PRN AFTMEALHC PRN PO DYSPEPSIA; Start 06/25/18 at 15:15 Magnesium Hydroxide (Milk Of Magnesia) 2,400 mg PRN QHS PRN PO CONSTIPATION Last administered on 07/04/18 22:43; Start 06/25/18 at 15:15 Aspirin (Michelle Aspirin) 325 mg DAILY PO Last administered on 07/05/18 08:01; Start 06/26/18 at 09:00 Bupropion HCl (Wellbutrin) 100 mg BID@0900,1200 PO Last administered on 12:41; Start 06/26/18 at 09:00 Vitamin D (Vitamin D3) 3,000 unit DAILY PO Last administered on 07/05/18 08:02 ; Start 06/26/18 at 09:00 Clopidogrel Bisulfate (Plavix) 75 mg DAILY PO Last administered on 07/05/18 08 :01; Start 06/26/18 at 09:00 Diltiazem HCl (Cardizem) 30 mg TID PO Last administered on 07/05/18 12:41; Start 06/25/18 at 21:00 Ferrous Sulfate (Feosol) 325 mg DAILY PO Last administered on 07/05/18 08:02; Start 06/26/18 at 09:00 Insulin Glargine (Lantus) 25 units QHS SQ Last administered on 07/03/18 20:16 ; Start 06/25/18 at 21:00 Insulin Human Lispro (HumaLOG) 15 units TIDAC SQ Last administered on 11:30; Start 06/25/18 at 16:30 Albuterol/ Ipratropium (Duoneb) 3 ml RTQID NEB Last administered on 07/05/18 16:11; Start 06/25/18 at 16:00 Nitroglycerin (Nitrostat) 0.4 mg PRN Q5MIN PRN SL CHEST PAIN Last administered on 07/05/18 03:48; Start 06/25/18 at 15:15 Ondansetron HCl (Zofran Odt) 4 mg PRN Q8HRS PRN PO NAUSEA/VOMITING; Start at 16:00 Tamsulosin HCl (Flomax) 0.4 mg DAILY PO Last administered on 07/05/18 08:03; Start 06/26/18 at 09:00 Acetaminophen (Tylenol) 500 mg PRN Q8HRS PRN PO PAIN / TEMP Last administered on 06/26/18 03:26; Start 06/25/18 at 15:45 Alprazolam (Xanax) 0.5 mg PRN Q8HRS PRN PO ANXIETY / AGITATION Last administered on 07/03/18 20:16; Start 06/25/18 at 15:45 Atorvastatin Calcium (Lipitor) 40 mg QHS PO Last administered on 07/04/18 19: 49; Start 06/25/18 at 21:00 Budesonide (Pulmicort) 0.5 mg RTBID NEB Last administered on 07/05/18 11:06; Start 06/25/18 at 20:00 Carvedilol (Coreg) 3.125 mg BIDWMEALS PO Last administered on 07/05/18 17:37; Start 06/25/18 at 17:00 Divalproex Sodium (Depakote Er) 1,500 mg QHS PO Last administered on 07/04/18 19:49; Start 06/25/18 at 21:00 Duloxetine HCl (Cymbalta) 20 mg DAILY PO Last administered on 07/05/18 08:01; Start 06/26/18 at 09:00 Duloxetine HCl (Cymbalta) 30 mg DAILY PO Last administered on 07/05/18 08:03; Start 06/26/18 at 09:00 Acetaminophen/ Hydrocodone Bitart (Lortab 5/325) 1 tab PRN Q4HRS PRN PO PAIN; Start 06/25/18 at 16:00 Lactobacillus Rhamnosus (Culturelle) 1 cap BID PO Last administered on 08:03; Start 06/25/18 at 21:00 Pantoprazole Sodium (Protonix) 40 mg DAILYAC PO Last administered on 07/05/18 07:30; Start 06/26/18 at 07:30 Ranolazine (Ranexa) 1,000 mg BID PO Last administered on 07/05/18 08:04; Start 06/25/18 at 21:00 Senna/Docusate Sodium (Senna Plus) 1 tab PRN BID PRN PO CONSTIPATION Last administered on 07/03/18at 17:14; Start 06/28/18 at 19:00 Magnesium Citrate (Citroma) 296 ml 1X ONCE PO Last administered on 06/29/18at 09 :10; Start 06/29/18 at 09:10; Stop 06/29/18 at 09:11; Status DC Furosemide (Lasix) 40 mg 1X ONCE PO Last administered on 07/03/18at 09:25; Start 07/03/18 at 08:45; Stop 07/03/18 at 08:52; Status DC Furosemide (Lasix) 40 mg DAILY PO Last administered on 07/05/18at 08:02; Start 07/04/18 at 09:00 Isosorbide Mononitrate (Imdur) 30 mg QHS PO Last administered on 07/04/18at 19: 48; Start 07/03/18 at 21:00 Insulin Glargine (Lantus) 10 units 1X ONCE SQ Last administered on 07/04/18at 20:00; Start 07/04/18 at 20:00; Stop 07/04/18 at 20:01; Status DC Active Scripts Active Reported NITROGLYCERIN SubLingual (Nitroglycerin) 0.4 Mg Tab.subl 0.4 Mg SL PRN Q5MIN PRN Cymbalta (Duloxetine Hcl) 20 Mg Capsule.dr 20 Mg PO DAILY Cardizem Tablet (Diltiazem Hcl) 30 Mg Tablet 30 Mg PO TID Tamsulosin Hcl 0.4 Mg Cap.er.24h 0.4 Mg PO DAILY Ranexa (Ranolazine) 500 Mg Tab.er.12h 1,000 Mg PO BID Protonix (Pantoprazole Sodium) 40 Mg Tablet.dr 40 Mg PO DAILYAC Ondansetron Odt (Ondansetron) 4 Mg Tab.rapdis 4 Mg PO PRN Q8HRS PRN Culturelle (Lactobacillus Rhamnosus Gg) 1 Each Capsule 1 Each PO BID Duoneb 0.5-3(2.5) Mg/3 Ml (Albuterol/Ipratropium) 3 Ml Ampul.neb 3 Ml NEB RTQID Humalog (Insulin Lispro) 100 Unit/1 Ml Insuln.pen 15 Unit SQ TIDAC Lantus Solostar (Insulin Glargine,Hum.rec.anlog) 100 Unit/1 Ml Insuln.pen 25 Unit SQ QHS Hydrocodone-Apap 5-325 (Hydrocodone Bit/Acetaminophen) 1 Each Tablet 1 Tab PO PRN Q4HRS PRN Clopidogrel (Clopidogrel Bisulfate) 75 Mg Tablet 75 Mg PO DAILY Carvedilol 3.125 Mg Tablet 3.125 Mg PO BIDWMEALS Budesonide 0.5 Mg/2 Ml Ampul.neb 0.5 Mg NEB RTBID Atorvastatin Calcium 40 Mg Tablet 40 Mg PO QHS Aspirin 325 Mg Tablet 325 Mg PO DAILY Alprazolam 0.5 Mg Tablet 0.5 Mg PO PRN Q8HRS PRN Acetaminophen 500 Mg Tablet 500 Mg PO PRN Q8HRS PRN Ferrous Sulfate 325 Mg Tablet 325 Mg PO DAILY Do not give within 2 hours of antacids or calcium products. Give with food. Divalproex Sodium Er (Divalproex Sodium) 500 Mg Tab.er.24h 1,500 Mg PO HS Give with food. Do NOT crush or chew. Vitamin D3 (Cholecalciferol (Vitamin D3)) 1,000 Unit Tablet 3,000 Unit PO DAILY Wellbutrin (Bupropion Hcl) 100 Mg Tablet 100 Mg PO BID@0900,1200 Cymbalta (Duloxetine Hcl) 30 Mg Capsule. 30 Mg PO DAILY I have reviewed the current psychotropics carefully including drug interactions. Risk benefit ratio favors no change other than as noted in my dictated progress note. Diagnosis: Problems: (1) Anxiety disorder (2) Depression (3) Bipolar 1 disorder (4) Difficulty controlling anger GRANT HYLTON MD Jul 05, 2018 20:10
[2018-07-05] MEDS: ATORVASTATIN CALCIUM 20 MG TABLET PO SCH (20:38)
[2018-07-05] MEDS: DIVALPROEX ER 500 MG TAB.ER.24H PO SCH (20:39)
[2018-07-05] MEDS: ISOSORBIDE MONONITRATE ER 30 MG TAB.ER.24H PO SCH (20:40)
[2018-07-05] MEDS: INSULIN GLARGINE 300 UNITS/3 ML INSULN.PEN. SQ SCH (21:31)
--- NOTE | 2018-07-05 23:22 | PN ---
DATE: 07/03/2018 PSYCHIATRIC PROGRESS NOTE This is a late entry, 07/03, covers elements not covered in my initial note. SUBJECTIVE: I met with the patient in the evening. The patient complains of being short of breath, seems to have some exacerbation of his CHF. REVIEW OF SYSTEMS: Ambulation impaired, in wheelchair. No CV, , GI, eye system symptoms on review. Rest of the 14-point review of systems negative. MENTAL STATUS EXAM: Reasonably oriented. Speech is coherent, abstraction fair, computation impaired, language function intact, attention span short. Mood and affect is improved. LABORATORY DATA: Reviewed. IMPRESSION: Unchanged from initial note. PLAN: No change from initial note. Transition to [facility] on Friday. MAN Rick HYLTON MD DR: GROVER/joselyn JOB#: [id number] / [id number]
--- NOTE | 2018-07-05 23:28 | PN ---
DATE: 07/04/2018 PSYCHIATRIC PROGRESS NOTE This is a late entry,07/04, covers elements not covered in my initial note. SUBJECTIVE: I met with the patient in the evening. The patient slept 6-3/4 hours previous evening. REVIEW OF SYSTEMS: Ambulation impaired, in wheelchair, complains of chest pain. Nursing are checking his vitals, communicating with Dr. David. Has had complained of some shortness of breath, received Imdur and Cardizem, compliant with medications. Anxious, received Xanax at night. Ambulation impaired, in wheelchair. No CV, , eye system symptoms on review. MENTAL STATUS EXAM: Reasonably oriented. Speech is coherent, has some latency, low in volume. Abstraction fair, computation impaired, language function intact. Mood and affect less depressed and anxious, showing improvement. LABORATORY DATA: Reviewed. IMPRESSION: Unchanged from initial note. PLAN: No change from initial note. GRANT HYLTON MD DR: GROVER/joselyn JOB#: [id number] / [id number]
[2018-07-06] MEDS: NITROGLYCERIN SUBLINGUAL 0.4 MG BOTTLE OF 25. SL PRN (00:56)
[2018-07-06] MEDS: ALPRAZolam 0.5 MG TABLET PO PRN (00:56)
[2018-07-06] MEDS: MAGNESIUM HYDROXIDE 2,400 MG/30 ML ORAL.SUSP. PO PRN (01:24)
[2018-07-06] MEDS: SENNOSIDES/DOCUSATE 8.6/50MG TABLET. PO PRN (01:24)
[2018-07-06] MEDS ORDERED: ISOS30TA4 PO (01:43)
[2018-07-06] MEDS ORDERED: METH57CR7 TP (01:45)
[2018-07-06] MEDS ORDERED: FURO-68 PO (01:47)
[2018-07-06] MEDS ORDERED: MAGN2400 PO (01:49)
[2018-07-06] MEDS ORDERED: MAG355OR17 PO (01:49)
[2018-07-06] MEDS ORDERED: SENN-37 PO (01:51)
[2018-07-06] MEDS: IPRATRPIUM/ALBUTEROL 0.5/2.5MG 3 ML NEBU. NEB SCH ×3 (05:20→15:40)
[2018-07-06 06:37] VITALS: BP 104/50
[2018-07-06] MEDS: INSULIN LISPRO 300 UNITS/3 ML INSULN.PEN. SQ SCH ×2 (07:30→12:14)
[2018-07-06] MEDS: PANTOPRAZOLE 40 MG TABLET. PO SCH (07:42)
[2018-07-06] MEDS: CARVEDILOL 3.125 MG TABLET PO SCH (07:43)
[2018-07-06] MEDS: dilTIAZem HCL 30 MG TABLET PO SCH ×2 (07:44→13:59)
[2018-07-06] MEDS: LACTOBACILLUS RHAMNOSUS GG 1 CAPSULE. PO SCH (07:44)
[2018-07-06] MEDS: DULoxetine HCL 20 MG CAPSULE.DR PO SCH (07:44)
[2018-07-06] MEDS: ASPIRIN 325 MG TABLET PO SCH (07:44)
[2018-07-06] MEDS: TAMSULOSIN 0.4 MG CAP.ER.24H. PO SCH (07:45)
[2018-07-06] MEDS: DULoxetine HCL 30 MG CAPSULE.DR PO SCH (07:45)
[2018-07-06] MEDS: FUROSEMIDE 40 MG TABLET PO SCH (07:45)
[2018-07-06] MEDS: buPROPion 100 MG TABLET PO SCH ×2 (07:45→12:13)
[2018-07-06] MEDS: FERROUS SULFATE 325 MG TABLET. PO SCH (07:45)
[2018-07-06] MEDS: CLOPIDOGREL BISULFATE 75 MG TABLET PO SCH (07:45)
[2018-07-06] MEDS: CHOLECALCIFEROL (VITAMIN D3) 1,000 UNIT TABLET PO SCH (07:45)
[2018-07-06] MEDS: RANOLAZINE 500 MG TAB.ER.12H PO SCH (07:56)
[2018-07-06] MEDS: BUDESONIDE 0.5 MG/2 ML NEBU NEB SCH (10:32)
[2018-07-06 14:00] VITALS: BP 98/54
[2018-07-06 16:22] VITALS: BP 124/70
--- NOTE | 2018-07-07 10:11 | DS ---
DATE OF DISCHARGE: 07/06/2018 DISCHARGE SUMMARY/PSYCHIATRIC PROGRESS NOTE This is a late entry 07/06/2018, covers elements not covered in my initial note. REASON FOR ADMISSION: Please refer to the admission history for details. Briefly, the patient is a 73-year-old male [facility] on account of increased irritability, mood lability, defiance within the context of his bipolar disorder and his psychotropics had been discontinued. He was admitted with us and then had complaints of chest pain. Given his significant cardiac history was transferred to [facility] floor per Dr. David, medically stabilized. Behaviors persisted and he is back with us for this restabilization. SIGNIFICANT FINDINGS AND CLINICAL COURSE: Following admission, the patient was seen daily individually by myself from a psychiatric standpoint, medical followup with Dr. David/Dr. Valdez. The patient was restarted on his psychotropics, remained withdrawn at times, somewhat labile in his mood, but gradually appeared to stabilize on a combination of Depakote ER 1500 mg at bedtime with therapeutic valproic acid level, Cymbalta 50 mg a day, Wellbutrin 100 mg twice a day, Xanax p.r.n. Prior to discharge 07/06/2018 ambulation impaired. No complaints of chest pain. He is in a wheelchair. REVIEW OF SYSTEMS: No CV, , pulmonary, eye system symptoms on review. MENTAL STATUS EXAM: Reasonably oriented. Speech has some latency, coherent. Abstraction fair, computation impaired, language function intact. Mood and affect showing improvement. No suicidal or homicidal ideation at discharge. FINAL DIAGNOSES: Bipolar 1 disorder, mixed with psychotic features, in partial remission; anxiety disorder, unspecified; impulse control disorder, unspecified. Rest unchanged from admission. DISCHARGE MEDICATIONS: Please refer to the MRAD. DISCHARGE INSTRUCTIONS: The [facility] the [facility]. MAN Rick HYLTON MD DR: GROVER/joselyn JOB#: [id number] / [id number]
--- NOTE | 2018-07-07 12:29 | PN ---
DATE: 07/05/2018 PSYCHIATRIC PROGRESS NOTE This is a late entry, 07/05, covers elements not covered in my initial note. SUBJECTIVE: I met with the patient in the evening. The patient slept 6 hours previous night, had some complaints of chest pain middle of the night: Deferred to Dr. David. BMP 7500. No pain in his chest during the day on 07/05. REVIEW OF SYSTEMS: Ambulation impaired, in wheelchair. No CV, , pulmonary, eye system symptoms on review. MENTAL STATUS EXAM: Reasonably oriented. Speech has some latency, coherent. Abstraction fair, computation impaired, language function intact. Mood and affect somewhat withdrawn, but overall improved, less labile. LABORATORY DATA: Reviewed. IMPRESSION: Unchanged from initial note. PLAN: No change from initial note. MAN Rick HYLTON MD DR: GROVER/joselyn JOB#: [id number] / [id number]
== END 2018-07-06 16:40 | DRG 885 ==
LOC: GEROPSY 14:45
PROVIDERS: ADMIT Psychiatry & Neurology Psychiatry; ATTEND Psychiatry & Neurology Psychiatry
DX: F31.64 Bipolar disorder, current episode mixed, severe, with psychotic features (principal); E43 Unspecified severe protein-calorie malnutrition; E11.51 Type 2 diabetes mellitus with diabetic peripheral angiopathy without gangrene; E78.5 Hyperlipidemia, unspecified; Z68.37 Body mass index [BMI] 37.0-37.9, adult; F41.9 Anxiety disorder, unspecified; F63.9 Impulse disorder, unspecified; G47.33 Obstructive sleep apnea (adult) (pediatric); H91.90 Unspecified hearing loss, unspecified ear; I11.0 Hypertensive heart disease with heart failure; I25.10 Atherosclerotic heart disease of native coronary artery without angina pectoris; I25.2 Old myocardial infarction; I48.91 Unspecified atrial fibrillation; I50.9 Heart failure, unspecified; J44.9 Chronic obstructive pulmonary disease, unspecified; E66.01 Morbid (severe) obesity due to excess calories; K59.00 Constipation, unspecified; Z66 Do not resuscitate; M19.90 Unspecified osteoarthritis, unspecified site; Z79.899 Other long term (current) drug therapy; Z82.49 Family history of ischemic heart disease and other diseases of the circulatory system; Z86.73 Personal history of transient ischemic attack (TIA), and cerebral infarction without residual deficits; Z95.1 Presence of aortocoronary bypass graft; Z98.41 Cataract extraction status, right eye; Z98.42 Cataract extraction status, left eye; Z87.11 Personal history of peptic ulcer disease; Z87.440 Personal history of urinary (tract) infections; Z87.81 Personal history of (healed) traumatic fracture
CPT/HCPCS: 36415; 71045; 80053; 80164; 82306; 82553; 82607; 82947; 83540; 83550; 83605; 83735; 83880; 84436; 84480; 84484; 85025; 86592; 93005; 94640; 94760; J1815; J7620; J7626; 97110; 97116; 97530; 97535